=== PATIENT | male | born 1940 | race Caucasian/White ===

== ENCOUNTER → 2016-02-26 | Outpatient (CLI) | payer MEDICARE ==
[~2016-02-26] MED LIST: ALPR0.25 PO; AMIO200T PO; AMLO5TAB2 PO; ASPI-586 PO; ATOR20TA49 PO; CALC1TAB97 PO; CETI10TA20 PO; CLIN300C11 PO; CLOP75TA69 PO; COLC0.6C3 PO; DIPH25CA79 PO; ESCI5TAB PO; FURO-124 PO; HYDR-3820 PO; LACT1CAP8 PO; MEMA28CA PO; PEDI18TA2 PO; POTA40LI PO; SENN8.6C5 PO; SPIR25TA3 PO; TAMS0.4C98 PO
--- OUTSIDE RECORDS SUMMARY | 2016-02-26 11:13 | XMS REPORT | Continuity of Care Document ---
Author Author [facility] Organization [facility] Address Unknown Phone Unavailable Care Team Providers Care Lo[place] Name Role Phone Nohemi Quinonez PCP [phone] Source Comments Some departments are not documenting in the electronic medical record. If you do not see the information that you expected, contact Release of Information in the Health Information Management department at [phone] for further assistance in locating additional records.[facility] Active Allergies and Adverse Reactions Allergen Noted Date Severity Reactions Comments Cortizone-10 03/14/2015 Medium RASH Cortizone injections Iodine 03/14/2015 High RASH Latex 03/14/2015 Medium RASH Other 03/14/2015 Medium RASH Doppler gel Current Medications Prescription Sig. Disp. Refills Start End Date Status Date CALCIUM CARBONATE/VITAMIN Take 1 Tab by mouth Active D3 (CALCIUM + D PO) daily. atorvastatin (LIPITOR) 40 Take 1 Tab by mouth 90 Tab 3 03/16/19 Active mg tablet daily. 16 HYDROcodone-acetaminophen Take 0.5 Tabs by mouth Active (+) (LORTAB, NORCO) every 6 hours as needed 10-325 mg tablet for Pain aspirin EC 81 mg tablet Take 1 Tab by mouth 90 Tab 3 03/16/19 Active daily. 16 tamsulosin (FLOMAX) 0.4 Take 1 Cap by mouth daily 90 Cap 3 04/15/19 Active mg capsule after breakfast. 16 ALPRAZolam (XANAX) 0.25 Take 0.25 mg by mouth at Active mg tablet bedtime as needed. other medication 1 Dose. Oxygen 2 liters Active at night amLODIPine (NORVASC) 5 mg Take 1 Tab by mouth 90 Tab 3 09/12/19 Active tablet daily. 16 colchicine 0.6 mg tablet Take 1 Tab by mouth 90 Tab 3 09/12/19 Active daily. 16 ped multivit #43-iron Chew 1 Tab by mouth Active fumarate (FLINTSTONES daily. COMPLETE (IRON)) 18 mg iron chew spironolactone Take 1 Tab by mouth 90 Tab 3 11/11/19 Active (ALDACTONE) 25 mg tablet daily. Take with food. 16 cetirizine (ZYRTEC) 10 mg Take 10 mg by mouth every Active tablet morning. L.ACID/L.CASEI/B.BIF/B.LO Take by mouth daily. Active N/FOS (PROBIOTIC BLEND PO) furosemide (LASIX) 40 mg Take 1 Tab by mouth every 90 Tab 3 12/04/19 Active tablet morning. 16 escitalopram oxalate Take 10 mg by mouth Active (LEXAPRO) 10 mg tablet daily. escitalopram oxalate Take 5 mg by mouth at 02/03/20 Discontin (LEXAPRO) 5 mg tablet bedtime daily. 16 ued Active Problems Problem Noted Date S/p TAVR (transcatheter aortic valve replacement), bioprosthetic 02/06/2016 Pleural effusion due to congestive heart failure (HCC) 10/15/2015 Acute on chronic diastolic heart failure (HCC) 10/05/2015 Chronic anemia 10/05/2015 Chest pain 10/02/2015 Acute pericardial effusion 09/08/2015 Cardiac tamponade 09/08/2015 Overview: Pericardiocentesis 09/05/15 with 750ml serosanguinous fluid, along with R/LHC, shunt run & ICE to assess VSD - complicated with recurrent pericardial effusion and tamponade. Acute systolic heart failure (HCC) 09/04/2015 Left bundle branch block 04/15/2015 Urinary retention 04/14/2015 Paroxysmal atrial fibrillation ([facility]) 04/14/2015 Thrombocytopenia ([facility]) 04/14/2015 Chronic kidney disease (CKD), stage II (mild) 04/09/2015 Severe aortic stenosis 03/14/2015 CAD (coronary artery disease), [place] coronary artery Overview: 03/14/15: Drug-eluting stent PCI and atherectomy of the LAD and drug-eluting stent PCI of the CFX into the OM branch by Dr. Up. To return for staged PCI of the RCA 03/28/15: ANU to RCA x 2 - continued ASA lifelong & Plavix >/=1 year w/o interruption to prevent stent thrombosis and possible myocardial infarction. Essential hypertension PVD (peripheral vascular disease) ([facility]) S/P abdominal aortic aneurysm repair Carotid artery stenosis Monoclonal paraproteinemia AAA (abdominal aortic aneurysm), s/p repair Mitral regurgitation Diastolic dysfunction Deviated nasal septum Vocal cord paralysis GERD (gastroesophageal reflux disease) Chronic vascular insufficiency of intestine (HCC) Monoclonal gammopathy Hypercholesteremia Low back pain Chronic arthralgias of knees and hips Falls Myeloma (HCC) Left ventricular hypertrophy Resolved Problems Problem Noted Date Resolved Date Groin hematoma 09/08/2015 09/12/2015 Altered mental status 09/04/2015 09/12/2015 Chest pain 09/04/2015 09/12/2015 Cardiogenic shock (HCC) 04/15/2015 09/08/2015 Pericardial effusion 04/15/2015 09/08/2015 Aortic stenosis 04/09/2015 09/08/2015 Acute systolic heart failure (HCC) 04/08/2015 09/08/2015 Hypokalemia 03/16/2015 03/28/2015 Throat clearing 03/28/2015 Most Recent Encounters Date Type Specialty Providers Description 02/24/2016 Telephone Cardiology Arnold Biggs RN Altered mental status 02/12/2016 [facility] Tom Garcia MD Seroma Encounter 02/12/2016 Surgery Tom Garcia MD Canceled EXPLORATION WOUND, excision of left groin seroma with possible wound vac placement 02/10/2016 Telephone Cardiology Rosa Shearer RN Family Discussion About Patient 02/10/2016 Documentation Cardiothoracic Surgery Mulugeta Starks RN 02/04/2016 Pre-Admit Anesthesiology Tom Garcia MD Orders Only 02/04/2016 Prep for Case Cardiothoracic Surgery Frannie Lora APRN 02/03/2016 Office Visit Cardiothoracic Surgery Tom Garcia MD Seroma (Primary Dx) 02/03/2016 Office Visit Cardiology Scooter Up MD, [facility] Cardiac Eval - AAA,CAD-11:30 PV Duplex and 1:00 Echo 02/03/2016 [facility] Cardiology Mely Ochoa APRN-C Encounter 01/20/2016 Documentation Cardiology Rosa Shearer RN Lab Results - outside provider records 01/19/2016 Orders Only Cardiology Rosa Shearer RN Groin pain, left (Primary Dx); Encounter for surgical aftercare following surgery of circulatory system 12/16/2015 Documentation Cardiology Arnold Biggs RN Labs Only 12/16/2015 Telephone Cardiology Arnold Biggs, compliance mgr Results - Urine Culture 12/05/2015 Telephone Cardiology Rosa Sanchez RN Appointment Request 12/04/2015 Hospital Cardiology Scooter Up MD, FAC Encounter 12/04/2015 Office Visit Cardiology Desirae Wolf APRN-JAMEEL Cardiac Eval - 1 month HF Scooter Up MD, FACC follow up Social History Tobacco Use Types Packs/Day Years Used Date Never Smoker Smokeless Tobacco: Never Used Alcohol Use Drinks/Week oz/Week Comments Yes 7 Glasses of 4.2 Drinks one glass of red wine daily wine Last Filed Vital Signs Vital Sign Reading Time Taken Blood Pressure 174/68 02/03/2016 4:55 PM TRUCK WASHER Pulse 76 02/03/2016 4:55 PM TRUCK WASHER Temperature 36.3 C (97.3 F) 10/03/2015 12:18 PM CDT Respiratory Rate - - Height 1.829 m (6') 02/03/2016 4:55 PM TRUCK WASHER Weight 81.194 kg (179 lb) 02/03/2016 4:55 PM TRUCK WASHER Body Mass Index 24.27 02/03/2016 4:55 PM TRUCK WASHER Oxygen Saturation 98% 11/04/2015 1:32 PM CDT Plan of Care Date Type Specialty Providers Description 05/04/2016 Appointment Cardiology Scooter Up MD, [facility] [address] [facility] [address] [place] [address] [phone] (Fax) Health Maintenance Due Date Last Done Comments Physical (Comprehensive) 1947 Exam Pertussis Vaccine 1949 Tetanus Vaccine 1955 Shingles Vaccine 1998 Prevnar/Pneumovax (#1) 2003 Influenza Vaccine 10/09/2015 Results from Last 3 Months PV GROIN DUPLEX SCAN LT ONLY (02/03/2016 3:54 PM) Component Value Range Referring Provider Violet Quinonez LEFT GROIN HEALTH AND SAFETY TECHNICIAN SYS 1.38 m/s LEFT GROIN SFA SYS 1.10 m/s LEFT GROIN PFA SYS 1.15 m/s Narrative No definite evidence of AV fistula or pseudoaneurysm. A large echolucent space is noted, likely representing a fluid collection, differential includes seroma, measuring 8.4 cm by 6.4 cm. No flow is noted within this echolucent space. 2-D + DOPPLER ECHOCARDIOGRAM (02/03/2016 1:50 PM) Component Value Range BSA 2.05 m2 ECHO EF 65 % Referring Provider Violet Quinonez LVIDD 4.2 4.2-5.9 cm LVIDS 3.0 cm IVS 0.9 0.6-1.0 cm PW 0.9 0.6-1.0 cm FS 28.57 28-44 % EF 48.57 % LA size 5.1 3.0-4.0 cm LA volume 131.0 18-58 mL Left Atrium Index 63.90 10-32 Right Ventricular Basal 4.9 cm (2.4-4.2) Diameter Right Atrial Area 27.0 cm2 (<=18) Right Ventricular Mid 3.3 cm (2.0-3.5) Diameter Right Ventricular Long 7.8 cm (5.6-8.6) Diameter Sinus 4.0 2.1-3.5 cm LVOT diameter 2.4 cm LVOT area 4.52 cm2 LVOT peak key 1.3 m/s LVOT peak VTI 30.0 cm AV peak velocity 2.2 m/s Ao VTI 50.0 cm Aortic valve area= 2.71 cm2 , with a mean gradient of 9 mmHg and a peak gradient of 19 mmHg AV index ([place]) 0.59 AV regurgitation pressure 390 msec 1/2 time TDI e' 0.100 m/s LVOT stroke volume 135.60 cm3 Narrative LVEF=65%. Normal left ventricular size and systolic function. No regional wall motion abnormalities. Mildly dilated right ventricle with normal function. Significant bi-atrial enlargement. Normal functioning aortic valve bioprosthesis. Trace paravalvular regurgitation. No pericardial effusion. Aortic root-right ventricle fistula. Unable to estimate PA systolic pressure with this study. No significant interval changes when compared with the echocardiogram completed on 10/02/15. BASIC METABOLIC PANEL (01/18/2016)Only the most recent of 2 results within the time period is included. Component Value Range Sodium 139 Potassium 4.6 Chloride 100 CO2 27 Blood Urea Nitrogen 38 (H) Creatinine 1.54 (H) Glucose 92 Calcium 9.0 eGFR Non 44 (L) Specimen Blood COMPREHENSIVE METABOLIC PANEL (12/04/2015 3:46 PM) Component Value Range Sodium 133 (L) 137-147 MMOL/L Potassium 4.1 3.5-5.1 MMOL/L Chloride 97 (L) 98-110 MMOL/L Glucose 84 70-100 MG/DL Blood Urea Nitrogen 35 (H) 7-25 MG/DL Creatinine 1.36 (H) 0.4-1.24 MG/DL Calcium 9.1 8.5-10.6 MG/DL Total Protein 8.7 (H) 6.0-8.0 G/DL Total Bilirubin 0.5 0.3-1.2 MG/DL Albumin 3.4 (L) 3.5-5.0 G/DL Alk Phosphatase 56 25-110 U/L AST (SGOT) 19 7-40 U/L CO2 32 (H) 21-30 MMOL/L ALT (SGPT) 16 7-56 U/L Anion Gap 4 3-12 eGFR Non 51 (L)Comment: >60 mL/min The eGFR is not validated for use in drug dosing adjustments. Continue to use estimated creatinine clearance per dosing reference text. Please contact the Clinical Pharmacist for questions. eGFR >60Comment: >60 mL/min The eGFR is not validated for use in drug dosing adjustments. Continue to use estimated creatinine clearance per dosing reference text. Please contact the Clinical Pharmacist for questions. Specimen Blood CBC (12/04/2015 3:46 PM) Component Value Range White Blood Cells 3.8 (L) 4.5-11.0 K/UL RBC 3.46 (L) 4.4-5.5 M/UL Hemoglobin 10.0 (L) 13.5-16.5 GM/DL Hematocrit 30.4 (L) 40-50 % MCV 87.9 80-100 FL MCH 29.0 26-34 PG MCHC 33.0 32.0-36.0 G/DL RDW 17.7 (H) 11-15 % Platelet Count 132 (L) 150-400 K/UL MPV 7.9 7-11 FL Specimen Blood BNP (B-TYPE NATRIURETIC PEPTI) (12/04/2015 3:46 PM) Component Value Range B Type Natriuretic 534.0 (H) 0-100 PG/ML Peptide Specimen Blood
--- NOTE | 2016-02-26 11:44 | Diagnostic Imaging Report ---
INDICATION: Right hip pain, increased pain. Comparison study: KUB from 12/22-. FINDINGS: 2 views of the right hip are unchanged from the KUB. There is complete loss of the joint space with flattening of the femoral head and sclerosis of the acetabulum and femoral head. No fracture or dislocation is present. IMPRESSION: There are severe degenerative changes of the right hip. Dictated by: Dictated on workstation # [id number]
--- NOTE | 2016-02-26 11:45 | Diagnostic Imaging Report ---
PROCEDURE: CT head without contrast. TECHNIQUE: Multiple contiguous axial images were obtained through the brain without the use of intravenous contrast. INDICATION: Increased confusion. FINDINGS: There is no intracranial hemorrhage, edema, or mass effect. There are periventricular and deep white matter hypodensities compatible with chronic microvascular ischemic changes. No extra-axial fluid collection seen. No hydrocephalus. The calvarium, the orbits, and the paranasal sinuses appear grossly unremarkable. IMPRESSION: No intracranial hemorrhage. Dictated by: Dictated on workstation # [id number]
[2016-02-26 11:56] LABS: BASOPHILS % (AUTO) 0 % (0-10); EOSINOPHILS # (AUTO) 0.1 10^3/uL (0.0-0.3); EOSINOPHILS % (AUTO) 3 % (0-10); LYMPHOCYTES # (AUTO) 1.2 X 10^3 (1.0-4.0); LYMPHOCYTES % (AUTO) 33 % (12-44); MEAN CORPUSCULAR HEMOGLOBIN 31 PG (25-34); MEAN CORPUSCULAR HGB CONC 33 G/DL (32-36); MEAN CORPUSCULAR VOLUME 93 FL (80-99); MEAN PLATELET VOLUME 10.7 FL (7.4-10.4); MONOCYTES # (AUTO) 0.4 X 10^3 (0.0-1.0); MONOCYTES % (AUTO) 11 % (0-12); NEUTROPHILS % (AUTO) 53 % (42-75); PLATELET COUNT 109 10^3/uL (130-400); RED BLOOD COUNT 3.59 10^6/uL (4.35-5.85); RED CELL DISTRIBUTION WIDTH 14.8 % (10.0-14.5); WHITE BLOOD COUNT 3.7 10^3/uL (4.3-11.0)
[2016-02-26 12:16] LABS: ALBUMIN 3.4 G/DL (3.2-4.5); BILIRUBIN,TOTAL 0.5 MG/DL (0.1-1.0); CALCIUM 8.9 MG/DL (8.5-10.1); CREATININE SERUM 1.44 MG/DL (0.60-1.30); POTASSIUM 4.3 MMOL/L (3.6-5.0); TOTAL PROTEIN 8.1 G/DL (6.4-8.2)
[2016-02-26 12:31] LABS: THYROID STIMULATING HORMONE 1.94 UIU/ML (0.35-4.94)
== END ==
LOC: RAD 11:09
PROVIDERS: ATTEND Nurse Practitioner Family
DX: I10 Essential (primary) hypertension (principal); R41.0 Disorientation, unspecified; R31.29 Other microscopic hematuria; M16.11 Unilateral primary osteoarthritis, right hip
CPT/HCPCS: 36415; 70450; 73502; 80053; 82607; 84443; 85025

== ENCOUNTER → 2016-03-02 | Outpatient (CLI) | payer MEDICARE ==
--- OUTSIDE RECORDS SUMMARY | 2016-03-02 16:09 | XMS REPORT | Continuity of Care Document ---
Author Author [facility] Organization [facility] Address Unknown Phone Unavailable Care Team Providers Care Oil Program Compliance Specialist Name Role Phone Nohemi Quinonez PCP [phone] Source Comments Some departments are not documenting in the electronic medical record. If you do not see the information that you expected, contact Release of Information in the Health Information Management department at [phone] for further assistance in locating additional records.[facility] Active Allergies and Adverse Reactions Allergen Noted [...] 04/15/2015 Urinary retention 04/14/2015 Paroxysmal atrial fibrillation ([facility]) 04/14/2015 Thrombocytopenia ([facility]) 04/14/2015 Chronic kidney disease (CKD), stage II (mild) 04/09/2015 Severe aortic stenosis 03/14/2015 CAD (coronary artery disease), [place] coronary artery Overview: 03/14/15: Drug-eluting stent PCI [...] infarction. Essential hypertension PVD (peripheral vascular disease) ([facility]) S/P abdominal aortic aneurysm repair Carotid artery [...] Arnold Biggs RN Altered mental status 02/12/2016 [facility] Tom Garcia MD Seroma Encounter 02/12/2016 Surgery [...] 02/03/2016 Office Visit Cardiology Scooter Up MD, [facility] Cardiac Eval - AAA,CAD-11:30 PV Duplex and 1:00 Echo 02/03/2016 [facility] Cardiology Mely Ochoa APRN-C Encounter 01/20/2016 Documentation Cardiology Rosa Shearer RN Lab Results - outside provider records 01/19/2016 Orders Only Cardiology Rosa Shearer RN Groin pain, left (Primary Dx); Encounter for surgical aftercare following surgery of circulatory system 12/16/2015 Documentation Cardiology Arnold Biggs RN Labs Only 12/16/2015 Telephone Cardiology Arnold Biggs, magnetic observer Results - Urine Culture 12/05/2015 Telephone Cardiology [...] Taken Blood Pressure 174/68 02/03/2016 4:55 PM IMAGING NURSE Pulse 76 02/03/2016 4:55 PM IMAGING NURSE Temperature 36.3 C (97.3 F) 10/03/2015 12:18 PM CDT Respiratory Rate - - Height 1.829 m (6') 02/03/2016 4:55 PM IMAGING NURSE Weight 81.194 kg (179 lb) 02/03/2016 4:55 PM IMAGING NURSE Body Mass Index 24.27 02/03/2016 4:55 PM IMAGING NURSE Oxygen Saturation 98% 11/04/2015 1:32 PM CDT Plan of Care Date Type Specialty Providers Description 05/04/2016 Appointment Cardiology Scooter Up MD, [facility] [address] [facility] [address] [place] [address] [phone] (Fax) Health Maintenance Due Date Last Done Comments Physical (Comprehensive) 1947 Exam Pertussis Vaccine 1949 Tetanus Vaccine 1955 Shingles Vaccine 1998 Prevnar/Pneumovax (#1) 2003 Influenza Vaccine 10/09/2015 Results from Last 3 Months PV GROIN DUPLEX SCAN LT ONLY (02/03/2016 3:54 PM) Component Value Range Referring Provider Violet Quinonez LEFT GROIN AUTO BODY REPAIRER FIBERGLASS SYS 1.38 m/s LEFT GROIN SFA SYS [...] peak gradient of 19 mmHg AV index ([place]) 0.59 AV regurgitation pressure 390 msec 1/2 [...]
[2016-03-02 16:30] LABS: BASOPHILS % (AUTO) 0 % (0-10); EOSINOPHILS # (AUTO) 0.1 10^3/uL (0.0-0.3); EOSINOPHILS % (AUTO) 2 % (0-10); LYMPHOCYTES # (AUTO) 1.1 X 10^3 (1.0-4.0); LYMPHOCYTES % (AUTO) 28 % (12-44); MEAN CORPUSCULAR HEMOGLOBIN 31 PG (25-34); MEAN CORPUSCULAR HGB CONC 33 G/DL (32-36); MEAN CORPUSCULAR VOLUME 92 FL (80-99); MEAN PLATELET VOLUME 10.6 FL (7.4-10.4); MONOCYTES # (AUTO) 0.5 X 10^3 (0.0-1.0); MONOCYTES % (AUTO) 14 % (0-12); NEUTROPHILS # (AUTO) 2.1 X 10^3 (1.8-7.8); NEUTROPHILS % (AUTO) 56 % (42-75); PLATELET COUNT 98 10^3/uL (130-400); RED BLOOD COUNT 3.45 10^6/uL (4.35-5.85); RED CELL DISTRIBUTION WIDTH 14.6 % (10.0-14.5); RETICULOCYTE % 0.82 % (0.50-2.40); WHITE BLOOD COUNT 3.8 10^3/uL (4.3-11.0)
[2016-03-02 16:33] LABS: PATH WILL NEED TO REVIEW SMEAR PATH TO REVIEW
[2016-03-02 16:48] LABS: BAND NEUTROPHILS 1 %; BASOPHILS % (MANUAL) 0 %; EOSINOPHILS % (MANUAL) 1 %; LYMPHOCYTES % (MANUAL) 32 %; NEUTROPHILS % (MANUAL) 59 %
== END ==
LOC: LAB 16:04
PROVIDERS: ATTEND Nurse Practitioner Family
DX: D61.818 Other pancytopenia (principal)
CPT/HCPCS: 36415; 85007; 85027; 85045

== ENCOUNTER 2016-10-02 16:43 | Emergency (ER) | payer MEDICARE ==
[~2016-10-02] VITALS: Ht 182.9 cm; Wt 83.0 kg
[2016-10-02 17:00] LABS: BASOPHILS % (AUTO) 1 % (0-10); EOSINOPHILS # (AUTO) 0.1 10^3/uL (0.0-0.3); EOSINOPHILS % (AUTO) 3 % (0-10); LYMPHOCYTES # (AUTO) 1.3 X 10^3 (1.0-4.0); LYMPHOCYTES % (AUTO) 30 % (12-44); MEAN CORPUSCULAR HEMOGLOBIN 32 PG (25-34); MEAN CORPUSCULAR HGB CONC 33 G/DL (32-36); MEAN CORPUSCULAR VOLUME 96 FL (80-99); MEAN PLATELET VOLUME 11.6 FL (7.4-10.4); MONOCYTES # (AUTO) 0.6 X 10^3 (0.0-1.0); MONOCYTES % (AUTO) 14 % (0-12); NEUTROPHILS # (AUTO) 2.2 X 10^3 (1.8-7.8); NEUTROPHILS % (AUTO) 52 % (42-75); PLATELET COUNT 60 10^3/uL (130-400); RED BLOOD COUNT 2.97 10^6/uL (4.35-5.85); RED CELL DISTRIBUTION WIDTH 13.1 % (10.0-14.5); WHITE BLOOD COUNT 4.3 10^3/uL (4.3-11.0)
--- NOTE | 2016-10-02 17:04 | ED Neurological Problem ---
General Stated Complaint: AMS Source: patient, family, EMS Exam Limitations: physical impairment History of Present Illness Time seen by provider: 16:54 Initial Comments This 76-year-old male presents with a history from EMS of having bitten his tongue while asleep. The patient's family had called prehospital care. There was no sukhwinder history of seizure. There's been no similar episodes in the past. The patient has no specific complaints this time but appears to be postictal. The patient is oriented to person and place. At this time patient has no specific complaints. He denies headache, stiff neck , chest pain, palpitations, nausea or vomiting. Telephone consultation was today under taken with Dr. Guaman, deputy sheriff custody at concerning the patient. The patient's chronic renal failure, aortic valve replacement, congestive heart failure, and dementia were discussed. Allergies and Home Medications Allergies Coded Allergies: cortisone (Verified Allergy, Unknown, 05/02/15) iodine (Verified Allergy, Unknown, 05/02/15) latex (Verified Allergy, Unknown, 05/02/15) Uncoded Allergies: DOPPLER GEL (Allergy, Unknown, 05/02/15) Home Medications Alprazolam 0.25 Mg Tablet, 0.25 MG PO HS, #30 Prescribed by: MARCUS QUINTANA on 05/02/15912 Amlodipine Besylate 5 Mg Tablet, 5 MG PO DAILY, (Reported) Aspirin 81 Mg Tablet., 81 MG PO DAILY, #30 Prescribed by: MARCUS QUINTANA on 05/02/15912 Atorvastatin Calcium 20 Mg Tablet, 20 MG PO DAILY, #30 Prescribed by: MARCUS QUINTANA on 05/02/15912 Calcium Citrate/Vitamin D3 1 Each Tablet, 1 EACH PO DAILY, #30 Prescribed by: MARCUS QUINTANA on 05/02/15912 Cetirizine HCl 10 Mg Tablet, 10 MG PO DAILY, (Reported) Colchicine 0.6 Mg Capsule, 0.6 MG PO, (Reported) Escitalopram Oxalate 5 Mg Tablet, 5 MG PO HS for 30 Days Prescribed by: MARCUS QUINTANA on 05/02/15912 Furosemide 40 Mg Tablet, 40 MG PO DAILY, #30 Prescribed by: MARCUS QUINTANA on 05/02/15912 Hydrocodone/Acetaminophen 1 Each Tablet, 1 EACH PO TID, (Reported) Memantine HCl 28 Mg Cap.spr.24, 28 MG PO DAILY, (Reported) Pedi Mv No.79/Ferrous Fumarate 18 Mg Tab.chew, 18 MG PO DAILY, (Reported) Sennosides 8.6 Mg Capsule, 3 TAB PO DAILY, #30 Prescribed by: MARCUS QUINTANA on 05/02/15 0913 Spironolactone 25 Mg Tablet, 25 MG PO DAILY, (Reported) Tamsulosin HCl 0.4 Mg Cap, 0.4 MG PO DAILY, (Reported) Constitutional: No chills, No fever Eyes: Denies Blurred Vision, Denies Photophobia Ears, Nose, Mouth, Throat: denies ear pain, denies nose discharge, denies epistaxis, mouth pain (patient has bitten his tongue.) Respiratory: No cough, No short of breath Cardiovascular: No chest pain Gastrointestinal: No abdominal pain, No diarrhea, No nausea, No vomiting Genitourinary: No dysuria, No frequency Musculoskeletal: No back pain Skin: other (the patient appears pale.) Psychiatric/Neurological: No Symptoms Reported Endocrine: No Symptoms Reported Past Iuyadlo-Ewdrpe-Vhbsef Hx Patient Social History Recent Hopitalizations: No Immunizations Up To Date Date of Pneumonia Vaccine: Feb 07, 2015 Date of Influenza Vaccine: Nov 08, 2015 Surgeries Surgeries: Abdominal, Coronary Stent, Orthopedic, Valve Replacement, Vascular Surgery Cardiovascular Cardiac Disorders: Aneurysm, Coronary Artery Disease, High Cholesterol, Hypertension Neurological Neurological Disorders: Dementia Reproductive System Hx Reproductive Disorders: No Genitourinary Genitourinary Disorders: Prostate Problems Musculoskeletal Musculoskeletal Disorders: Chronic Back Pain Psychosocial Behavioral Health Disorders: Depression Reviewed Nursing Assessment Reviewed/Agree w Nursing PMH: Yes Physical Exam Vital Signs Vital Sign - Last 12Hours 10/02/16 16:57 Temp 98.2 Pulse 60 Resp 20 B/P (MAP) 147/61 Pulse Ox 99 O2 Delivery Room Air Capillary Refill : General Appearance: no apparent distress, cachetic HEENT: other (superficial lacerations this appears her tongue) Neck: supple Respiratory: decreased breath sounds Gastrointestinal: normal bowel sounds, non tender, soft Back: normal inspection, no CVA tenderness Extremities: normal range of motion, non-tender Neurologic/Psychiatric: no motor/sensory deficits Crainal Nerves: other (the patient's speech is hesitant and he appears to be postictal.) Motor/Sensory: no motor deficit, no sensory deficit Skin: normal color, warm/dry Progress/Results/Core Measures Results/Orders Lab Results Laboratory Tests Test 10/02/16 15:30 10/02/16 16:50 Range/Units Urine Color YELLOW Urine Clarity CLEAR Urine pH 5 5-9 Urine Specific Antonito 1.010 L 1.016-1.022 Urine Protein 3+ H NEGATIVE Urine Glucose (UA) NEGATIVE NEGATIVE Urine Ketones NEGATIVE NEGATIVE Urine Nitrite NEGATIVE NEGATIVE Urine Bilirubin NEGATIVE NEGATIVE Urine Urobilinogen NORMAL NORMAL MG/DL Urine Leukocyte Esterase NEGATIVE NEGATIVE Urine RBC (Auto) 5+ H NEGATIVE Urine RBC 10-25 H /HPF Urine WBC NONE /HPF Urine Squamous Epithelial Cells NONE /HPF Urine Crystals NONE /LPF Urine Bacteria NEGATIVE /HPF Urine Casts NONE /LPF Urine Mucus NEGATIVE /LPF Urine Culture Indicated NO White Blood Count 4.3 4.3-11.0 10^3/uL Red Blood Count 2.97 L 4.35-5.85 10^6/uL Hemoglobin 9.4 L 13.3-17.7 G/DL Hematocrit 29 L 40-54 % Mean Corpuscular Volume 96 80-99 FL Mean Corpuscular Hemoglobin 32 25-34 PG Mean Corpuscular Hemoglobin Concent 33 32-36 G/DL Red Cell Distribution Width 13.1 10.0-14.5 % Platelet Count 60 L 130-400 10^3/uL Mean Platelet Volume 11.6 H 7.4-10.4 FL Neutrophils (%) (Auto) 52 42-75 % Lymphocytes (%) (Auto) 30 12-44 % Monocytes (%) (Auto) 14 H 0-12 % Eosinophils (%) (Auto) 3 0-10 % Basophils (%) (Auto) 1 0-10 % Neutrophils # (Auto) 2.2 1.8-7.8 X 10^3 Lymphocytes # (Auto) 1.3 1.0-4.0 X 10^3 Monocytes # (Auto) 0.6 0.0-1.0 X 10^3 Eosinophils # (Auto) 0.1 0.0-0.3 10^3/uL Basophils # (Auto) 0.0 0.0-0.1 10^3/uL Prothrombin Time 17.5 H 12.2-14.7 SEC INR Comment 1.4 0.8-1.4 D-Dimer > 20.00 *H 0.00-0.49 UG/ML Sodium Level 137 135-145 MMOL/L Potassium Level 4.5 3.6-5.0 MMOL/L Chloride Level 100 98-107 MMOL/L Carbon Dioxide Level 25 21-32 MMOL/L Anion Gap 12 5-14 MMOL/L Blood Urea Nitrogen 74 H 7-18 MG/DL Creatinine 2.74 H 0.60-1.30 MG/DL Estimat Glomerular Filtration Rate 23 BUN/Creatinine Ratio 27 Glucose Level 90 70-105 MG/DL Calcium Level 8.8 8.5-10.1 MG/DL Total Bilirubin 0.4 0.1-1.0 MG/DL Aspartate Amino Transf (AST/SGOT) 23 5-34 U/L Alanine Aminotransferase (ALT/SGPT) 18 0-55 U/L Alkaline Phosphatase 55 40-136 U/L Troponin I < 0.30 <0.30 NG/ML B-Type Natriuretic Peptide 488.6 H <100.0 PG/ML Total Protein 8.2 6.4-8.2 GM/DL Albumin 3.4 3.2-4.5 GM/DL My Orders Orders - MIKY BATISTA MD Ct Head Wo (10/02/16 16:52) Cbc With Automated Diff (10/02/16 16:52) Protime With Inr (10/02/16 16:52) Comprehensive Metabolic Panel (10/02/16 16:52) Ua Culture If Indicated (10/02/16 16:52) Ekg Tracing (10/02/16 16:52) Troponin I (10/02/16 16:52) Chest 1 View, Ap/Pa Only (10/02/16 16:52) BNP (10/02/16 17:13) Fibrin Degradation Products (10/02/16 17:13) Vital Signs/I&O Vital Sign - Last 12Hours 10/02/16 16:57 Temp 98.2 Pulse 60 Resp 20 B/P (MAP) 147/61 Pulse Ox 99 O2 Delivery Room Air Intake and Output 10/03/16 00:00 Intake Total 1000 ml Balance 1000 ml Progress Note : Time: 18:01 Progress Note This patient's CT of the head demonstrated no evidence of acute intracranial hemorrhage. They patient's laboratory exam was essentially unchanged from his previous values at according to Dr. Guaman. There had been a slight deterioration in the patient's renal function (creatinine 2.74, BUNs 74). Patient's EKG demonstrated first degree heart block with a sinus rhythm and no acute current of injury. Chest x-ray failed to demonstrate evidence of acute pathology. Patient's d-dimer was markedly elevated. This was attributed to his poor renal function and apparent seizure. I placed a call to the neurology resident on-call at . The family's desire is that the patient have follow-up at in the neurology department rather than having to be transferred tonight to . I think this is a reasonable plan. I believe that it would be in the patient's best interest to be initiated on anticonvulsant therapy as I believe this was his second seizure within the last month. At this juncture I'm waiting for the neurology resident at to return my call for input on the patient's treatment plan. In the interim I'm going to initiate Keppra 500 mg by mouth. We'll adjust based on neurology recommendations and make certainly consider the patient's impaired renal function. Departure Impression Impression: Primary Impression: Seizures Disposition: 01 HOME, SELF-CARE Condition: Unchanged Departure-Patient Inst. Decision time for Depature: 18:10 Referrals: ROBBIN MARTINEZ MD (PCP/Family) Primary Care Physician Patient Instructions: Seizures, Adult (DC) Add. Discharge Instructions: Take Keppra 500 mg daily until following up with neurology at this week. Return to the emergency department if any problems or questions. MIKY BATISTA MD Oct 02, 2016 17:04
[2016-10-02 17:14] LABS: INR 1.4 (0.8-1.4); PROTHROMBIN TIME PATIENT 17.5 SEC (12.2-14.7)
[2016-10-02 17:24] LABS: ALANINE AMINOTRANSFERASE 18 U/L (0-55); ALBUMIN 3.4 GM/DL (3.2-4.5); ANION GAP 12 MMOL/L (5-14); ASPARTATE AMINO TRANSFERASE 23 U/L (5-34); BILIRUBIN,TOTAL 0.4 MG/DL (0.1-1.0); BLOOD UREA NITROGEN 74 MG/DL (7-18); BUN/CREATININE RATIO 27; CALCIUM 8.8 MG/DL (8.5-10.1); CARBON DIOXIDE 25 MMOL/L (21-32); CHLORIDE 100 MMOL/L (98-107); CREATININE SERUM 2.74 MG/DL (0.60-1.30); GFR ESTIMATED 23; GLUCOSE 90 MG/DL (70-105); POTASSIUM 4.5 MMOL/L (3.6-5.0); SODIUM 137 MMOL/L (135-145); TOTAL PROTEIN 8.2 GM/DL (6.4-8.2)
[2016-10-02 17:30] LABS: TROPONIN I < 0.30 NG/ML (<0.30)
[2016-10-02 17:37] LABS: BILIRUBIN,URINE NEGATIVE (NEGATIVE); KETONES,URINE NEGATIVE (NEGATIVE); LEUKOCYTE ESTERASE ,URINE NEGATIVE (NEGATIVE); NITRITE,URINE NEGATIVE (NEGATIVE); PH,URINE 5 (5-9); PROTEIN,URINE 3+ (NEGATIVE); UROBILINOGEN,URINE NORMAL (NORMAL)
--- NOTE | 2016-10-02 17:39 | Diagnostic Imaging Report ---
PROCEDURE: CT head without contrast. TECHNIQUE: Multiple contiguous axial images were obtained through the brain without the use of intravenous contrast. INDICATION: Altered mental status. COMPARISON: Study of 02/26/2016. FINDINGS: Ventricles and sulci are diffusely prominent. No hemorrhage is identified. There is no abnormal mass effect or shift of midline structures. There is atherosclerotic calcification within distal internal carotid and vertebral arteries. Calvarium is intact and the visualized paranasal sinuses are clear. IMPRESSION: Stable senescent findings in the brain without CT evidence of acute intracranial abnormality. Dictated by: Dictated on workstation # [id number]
--- NOTE | 2016-10-02 17:51 | Diagnostic Imaging Report ---
INDICATION: Altered mental status. EXAMINATION: Single PA view of the chest was obtained. COMPARISON: Study of 12/23/2015. FINDINGS: There is bilateral air trapping, similar to previous study. There may be slight right basilar atelectasis. No pneumothorax or consolidation is identified. There is no evidence of significant pleural fluid. IMPRESSION: Probable mild right basilar atelectasis without other evidence of acute abnormality or adverse change. Dictated by: Dictated on workstation # [id number]
[2016-10-02] MEDS: LEVETIRACETAM 500 MG (KEPPRA) TAB PO ONE (18:21)
[2016-10-02 18:28] VITALS: BP 147/61
== END 2016-10-02 18:28 | disposition home or self-care (01) ==
LOC: EDUNIT# 16:43 → ER 16:46
DX: R56.9 Unspecified convulsions (principal); F32.9 Major depressive disorder, single episode, unspecified; I25.10 Atherosclerotic heart disease of native coronary artery without angina pectoris; E78.00 Pure hypercholesterolemia, unspecified; I12.9 Hypertensive chronic kidney disease with stage 1 through stage 4 chronic kidney disease, or unspecified chronic kidney disease; N18.9 Chronic kidney disease, unspecified; F03.90 Unspecified dementia, unspecified severity, without behavioral disturbance, psychotic disturbance, mood disturbance, and anxiety; Z87.438 Personal history of other diseases of male genital organs; Z95.5 Presence of coronary angioplasty implant and graft; Z95.2 Presence of prosthetic heart valve; Z79.82 Long term (current) use of aspirin; Z86.79 Personal history of other diseases of the circulatory system
CPT/HCPCS: 36415; 70450; 71010; 80053; 81000; 83880; 84484; 85025; 85379; 85610

== ENCOUNTER → 2017-03-04 | Outpatient (CLI) | payer MEDICARE ==
[2017-03-04 11:34] LABS: BASOPHILS % (AUTO) 0 % (0-10); EOSINOPHILS % (AUTO) 0 % (0-10); HEMATOCRIT 28 % (40-54); HEMOGLOBIN 9.1 G/DL (13.3-17.7); LYMPHOCYTES # (AUTO) 0.6 X 10^3 (1.0-4.0); LYMPHOCYTES % (AUTO) 13 % (12-44); MEAN CORPUSCULAR HEMOGLOBIN 32 PG (25-34); MEAN CORPUSCULAR HGB CONC 33 G/DL (32-36); MEAN CORPUSCULAR VOLUME 96 FL (80-99); MEAN PLATELET VOLUME 10.2 FL (7.4-10.4); MONOCYTES # (AUTO) 0.2 X 10^3 (0.0-1.0); MONOCYTES % (AUTO) 4 % (0-12); NEUTROPHILS # (AUTO) 3.6 X 10^3 (1.8-7.8); NEUTROPHILS % (AUTO) 83 % (42-75); PLATELET COUNT 82 10^3/uL (130-400); RED BLOOD COUNT 2.88 10^6/uL (4.35-5.85); RED CELL DISTRIBUTION WIDTH 13.8 % (10.0-14.5); WHITE BLOOD COUNT 4.3 10^3/uL (4.3-11.0)
[2017-03-04 11:49] LABS: ALBUMIN 3.3 GM/DL (3.2-4.5); BILIRUBIN,TOTAL 0.4 MG/DL (0.1-1.0); CALCIUM 8.6 MG/DL (8.5-10.1); CREATININE SERUM 2.06 MG/DL (0.60-1.30); POTASSIUM 5.1 MMOL/L (3.6-5.0); TOTAL PROTEIN 8.2 GM/DL (6.4-8.2)
== END ==
LOC: CARD 11:13
PROVIDERS: ATTEND Internal Medicine Cardiovascular Disease
DX: I25.10 Atherosclerotic heart disease of native coronary artery without angina pectoris (principal); I35.0 Nonrheumatic aortic (valve) stenosis; I65.23 Occlusion and stenosis of bilateral carotid arteries; I10 Essential (primary) hypertension; E78.5 Hyperlipidemia, unspecified; E78.2 Mixed hyperlipidemia; I71.4 Abdominal aortic aneurysm, without rupture; I27.20 Pulmonary hypertension, unspecified
CPT/HCPCS: 36415; 80053; 80061; 85025; 93306

== ENCOUNTER 2017-05-24 16:51 | Emergency (ER) | payer MEDICARE ==
[~2017-05-24] VITALS: Ht 182.9 cm; Wt 88.0 kg
[~2017-05-24 16:51] MED LIST changes: -POTA40LI PO; +POTA40LI11 PO; -SPIR25TA3 PO; +SPIR25TA5 PO
--- OUTSIDE RECORDS SUMMARY | 2017-05-24 17:00 | XMS REPORT | Clinical Summary ---
Author Author [facility] Organization [facility] Address Unknown Phone Unavailable Care Team Providers Care Oracle Drm Consultant Name Role Phone Violet Quinonez MD PCP Salvador Vitale MD Unavailable Winnie Stewart MBBS Unavailable Unavailable Pradeep RivasBS Unavailable Desirae Wolf APRN-BEHAVIORAL SCIENCE CHAIR 7 Source Comments Some departments are not documenting in the electronic medical record. If you do not see the information that you expected, contact Release of Information in the Health Information Management department at [phone] for further assistance in locating additional records.[facility] Allergies Active Allergy Reactions Severity Noted Date Comments Hydrocortisone RASH Medium 03/14/2015 Cortizone injections Iodine RASH High 03/14/2015 Latex RASH Medium 03/14/2015 Unclassified Drug RASH Medium 03/14/2015 Doppler gel Current Medications Prescription Sig. Disp. Refills Start End Date Status Date CALCIUM CARBONATE/VITAMIN Take 1 Tab by mouth Active D3 (CALCIUM + D PO) daily. HYDROcodone-acetaminophen Take 0.5 Tabs by mouth Active (+) (LORTAB, NORCO) every 6 hours as needed 10-325 mg tablet for Pain aspirin EC 81 mg Take 1 Tab by mouth 90 Tab 3 03/16/19 Active tabletIndications: Aortic daily. 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 16 other medication 1 Dose. Oxygen 2 liters Active at night ped multivit #43-iron Chew 1 Tab by mouth Active fumarate (FLINTSTONES daily. COMPLETE (IRON)) 18 mg iron chew cetirizine (ZYRTEC) 10 mg Take 10 mg by mouth every Active tablet morning. escitalopram oxalate Take 10 mg by mouth Active (LEXAPRO) 10 mg tablet daily. atorvastatin (LIPITOR) 40 Take 1 Tab by mouth 90 Tab 3 03/11/19 Active mg tabletIndications: daily. 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 Calcium Carb mg/200 unit tablet 1250mg delivers 500mg elemental Ca polyethylene glycol 3350 Take 17 g by mouth daily. Active (GLYCOLAX; MIRALAX) 17 gram/dose powder MELATONIN PO Take 10 mg by mouth. Active mirtazapine (REMERON) 15 Take 15 mg by mouth at Active mg tablet bedtime daily. amLODIPine (NORVASC) 5 mg TAKE 1 TABLET BY MOUTH 90 Tab 3 08/18/19 Active tablet DAILY 17 spironolactone TAKE 1 TABLET BY MOUTH 90 tablet 3 11/09/19 Active (ALDACTONE) 25 mg tablet EVERY DAY WITH FOOD 17 LEVETIRACETAM (KEPPRA PO) Take 500 mg by mouth Active daily. furosemide (LASIX) 40 mg Take 1 tablet by mouth 180 tablet 3 11/12/19 Active tabletIndications: Edema twice daily. Indications: 17 Edema Active Problems Problem Noted Date Nonrheumatic aortic valve insufficiency 11/09/2016 Major neurocognitive disorder 07/01/2016 Overview: Most likely d/t AD, but possible lewy body or mixed-type remains in the ddx given his prominent cognitive fluctuations. Possible secondary contributions from mood disorders, medications, r/o thyroid disorder. 06/2016: MMSE 14, LM 1: 2, LM 2: 0 Alzheimer's disease 03/23/2016 Acute confusional state 03/18/2016 Seizure (HCC) 03/17/2016 S/p TAVR (transcatheter aortic valve replacement), bioprosthetic 02/06/2016 Pleural effusion due to congestive heart failure (HCC) 10/15/2015 Acute on chronic diastolic congestive heart failure ([facility]) 10/05/2015 Chronic anemia 10/05/2015 Chest pain 10/02/2015 Acute pericardial effusion 09/08/2015 Cardiac tamponade 09/08/2015 Overview: Pericardiocentesis 09/05/15 with 750ml serosanguinous fluid, along with R/LHC, shunt run & ICE to assess VSD - complicated with recurrent pericardial effusion and tamponade. Acute systolic heart failure ([facility]) 09/04/2015 Left to right cardiac shunt ([facility]) 05/02/2015 Overview: Aortic root to right ventricular shunt. 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 Up. To return for staged PCI of the RCA 03/28/15: ANU to RCA x 2 - continued ASA lifelong & Plavix >/=1 year w/o interruption to prevent stent thrombosis and possible myocardial infarction. Essential hypertension PVD (peripheral vascular disease) ([facility]) S/P abdominal aortic aneurysm repair Carotid artery stenosis Monoclonal paraproteinemia AAA (abdominal aortic aneurysm), s/p repair Mitral regurgitation Diastolic dysfunction Deviated nasal septum Vocal cord paralysis GERD (gastroesophageal reflux disease) Chronic vascular insufficiency of intestine ([facility]) Monoclonal gammopathy Hypercholesteremia Low back pain Chronic arthralgias of knees and hips Falls Myeloma ([facility]) Left ventricular hypertrophy Resolved Problems Problem Noted Date Resolved Date Groin hematoma 09/08/2015 09/12/2015 Altered mental status 09/04/2015 09/12/2015 Chest pain 09/04/2015 09/12/2015 Cardiogenic shock ([facility]) 04/15/2015 09/08/2015 Pericardial effusion 04/15/2015 09/08/2015 Aortic stenosis 04/09/2015 09/08/2015 Acute systolic heart failure ([facility]) 04/08/2015 09/08/2015 Hypokalemia 03/16/2015 03/28/2015 Throat clearing 03/28/2015 Encounters Date Type Specialty Care Team Description 02/25/2017 Documentation Cardiology Lizeth Allison LPN Medication Refill from Last 3 Months Family History Medical History Relation Name Comments Heart Attack Brother Heart Surgery Brother Heart Surgery Brother Cancer Sister Cancer Sister Irritable Bowel Disease Sister Chrons Disease Relation Name Status Comments Brother Brother Brother Father "old age" (Age 80s) Mother "old age" (Age 80s) Sister Sister Sister Social History Tobacco Use Types Packs/Day Years Used Date Never Smoker Smokeless Tobacco: Never Used Alcohol Use Drinks/Week oz/Week Comments Yes 7 Glasses of 4.2 Drinks one glass of red wine daily wine Sex Assigned at Date Recorded Not on file Last Filed Vital Signs Vital Sign Reading Time Taken Blood Pressure 136/60 11/09/2016 1:35 PM CDT Pulse 55 11/09/2016 1:35 PM CDT Temperature 36.8 C (98.3 F) 03/18/2016 9:28 AM HYPERION ESSBASE DEVELOPER Respiratory Rate - - Oxygen Saturation 99% 11/09/2016 1:35 PM CDT Inhaled Oxygen - - Concentration Weight 85.8 kg (189 lb 1.6 oz) 11/09/2016 1:35 PM CDT Height 182.9 cm (6') 11/09/2016 1:35 PM CDT Body Mass Index 25.65 11/09/2016 1:35 PM CDT Plan of Treatment Health Maintenance Due Date Last Done Comments PHYSICAL (COMPREHENSIVE) 1945 EXAM PERTUSSIS VACCINE 1949 TETANUS VACCINE 1955 SHINGLES VACCINE 1998 PREVNAR/PNEUMOVAX (#1) 2003 INFLUENZA VACCINE 11/07/2017 Implants Implanted Type Area Wrapper Dipper Device Expiration Model / Identifier Date Serial / Lot Stent 29mm Shaji 3 Commander System N/A: Heart UNIDENTIFIED 01/24/2016 [id number] Implanted: Qty: 1 on 04/09/2015 by RABIA / Salvador Vitale MD [id number] / [id number] Results Not on filefrom Last 3 Months
--- OUTSIDE RECORDS SUMMARY | 2017-05-24 17:00 | XMS REPORT | Continuity of Care Document ---
Author Author [facility] Organization [facility] Address Unknown Phone Unavailable Care Team Providers Care Individual Small Group Instructor Name Role Phone [employer] Unavailable Unavailable Problems Medications Allergies, Adverse Reactions, Alerts Immunizations Results Vital Signs Encounters Location Location Details Encounter Type Encounter Number Reason For Visit Attending Provider ADM Date DC Date Status Source OUTPATIENT [id number] KIKA YIP 05/08/2015 Active [facility] OUTPATIENT [id number] FERNANDA BENNETT 11/04/2015 Active [facility] OUTPATIENT [id number] KIKA YIP 12/04/2015 Active [facility] OUTPATIENT [id number] LORETA MARIA 02/03/20162015 Active [facility] EMERGENCY [id number] TONYA WALTON 03/17/2016 03/17/2016 Active [facility] OUTPATIENT [id number] KIKA YIP 05/04/2016 Active [facility] SPECIMEN [id number] TOMAS WALTON 07/01/2016 07/01/2016 Active [facility] OUTPATIENT [id number] EDNA CHRISTINE 11/03/20162016 Active [facility] OUTPATIENT [id number] KIKA YIP 11/09/2016 11/09/2016 Active [facility] O Active [facility] Procedures Plan of Care Social History Assessment and Plan Family History Advance Directives Functional Status
--- OUTSIDE RECORDS SUMMARY | 2017-05-24 17:00 | XMS REPORT | Encounter Summary ---
Author Author [facility] Organization [facility] Address Unknown Phone Unavailable Care Team Providers Care Freight Forwarder Name Role Phone Violet Quinonez MD PCP Salvador Vitale MD Unavailable Winnie Stewart MBBS Unavailable Unavailable Pradeep RivasBS Unavailable Desirae Wolf APRN-RUG CUTTER HELPER 7 Reason for Visit * Reason Comments Medication Refill Encounter Details Date Type Department Care Team Description 02/25/2017 Documentation [facility] Lizeth Allison LPN Medication Refill [address] [facility] [address] [place], [place] [id number] Social History Tobacco Use Types Packs/Day Years Used Date Never Smoker Smokeless Tobacco: Never Used Alcohol Use Drinks/Week oz/Week Comments Yes 7 Glasses of 4.2 Drinks one glass of red wine daily wine Sex Assigned at Date Recorded Not on file as of this encounter Functional Status Functional Status Response Date of Assessment Does the patient have a hearing impairment: No 11/03/2016 Does the patient have a visual impairment: No 11/03/2016 Does the patient have impaired ambulation: Yes 11/03/2016 Does the patient have an activity of daily living No 11/03/2016 (ADL) impairment: Does the patient have an instrumental activity of No 11/03/2016 daily living (IADL) impairment: Cognitive Status Response Date of Assessment Does the patient have a cognitive impairment: No 11/03/2016 as of this encounter Progress Notes * Lizeth Allison LPN - 02/25/2017 9:43 AM MACHINE SORTER Request for refill received for Atorvastatin. This med was ordered by MACHINIST BENCH at hospital discharge. No recent lipid profile. Reviewed with Candace Infante RN. Call placed to pharmacy and spoke to Gianni requesting they forward refill request to PCP. Request for refill denied as PCP will follow up. in this encounter Plan of Treatment Not on fileas of this encounter Visit Diagnoses Not on filein this encounter
--- OUTSIDE RECORDS SUMMARY | 2017-05-24 17:03 | XMS REPORT | CCD ---
Author Author [facility] Address [address] [place] [address] Phone Care Team Providers Care Accounting System Expert Name Role Phone PP Unavailable CCM Unavailable Summary Purpose Interface Exchange Insurance Providers Payer name Policy type / Coverage type Covered republican ID Effective Begin Date Effective End Date WPS Medicare Part B Medicare Part B [id number] Unknown Unknown [facility] Medicare Part B [id number] Unknown Unknown Family history Son Diagnosis Age At Onset Depression Unknown Sister Diagnosis Age At Onset Cancer Unknown Brother Diagnosis Age At Onset Coronary Artery Disease Unknown Hypertension Unknown Father Diagnosis Age At Onset Alcoholism Unknown Social History Social History Element Codes Description Effective Dates Marital status Unknown 05/17/2014 Employment Unknown Retired 05/17/[address]: 869630080 Never smoker 05/17/[address]: 641018312 Never drinks alcohol 05/17/2014 Allergies, Adverse Reactions, Alerts Allergies, Adverse Reactions, Alerts data not found Past Medical History Illness Codes Condition Status Onset Date Resolved Date Epilepsy, unspecified, not intractable, without status epilepticus ICD-9: 345.90 ICD-10: G40.909 Active 10/08/2016 Unknown Essential (primary) hypertension ICD-9: 401.9 ICD-10: I10 Active 02/25/2016 Unknown 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 ICD-10: D50.0 Active 06/19/2015 Unknown Pain in right hip ICD- 9: 719.45 ICD-10: M25.551 Active 02/25/2016 Unknown Idiopathic gout, left elbow ICD-9: 274.00 ICD-10: M10.022 Active 07/16/2016 Unknown Pain in left elbow ICD -9: 719.42 ICD-10: M25.522 Active 07/16/2016 Unknown Disorientation, unspecified ICD-9: 293.0 ICD-10: R41.0 Active 02/25/2016 Unknown Hypoxemia ICD-9: 799.02 ICD-10: R09.02 Active 02/26/2016 Unknown Mastodynia ICD-9: 611.71 ICD-10: N64.4 Active 02/25/2016 Unknown Other microscopic hematuria ICD-9: 599.72 ICD-10: R31.29 Active 02/25/2016 Unknown Encounter for immunization ICD-9: V04.81 ICD-10: Z23 Active 11/12/2015 Unknown Localized edema ICD-9 : 782.3 ICD-10: R60.0 Active 11/12/2015 Unknown Mild cognitive impairment, so stated ICD-9: 331.83 ICD-10: G31.84 Active 11/12/2015 Unknown Contusion of abdominal wall, sequela ICD-9: 906.3 ICD-10: S30.1XXS Active 08/21/2015 Unknown Other intra-abdominal and pelvic swelling, mass and lump ICD-9: 789.30 ICD-10: R19.09 Active 08/21/2015 Unknown Urinary tract infection, site not specified ICD-9: 599.0 ICD-10: N39.0 Active 08/21/2015 Unknown Anemia, unspecified ICD-9: 285.9 ICD-10: D64.9 Active 07/21/2015 Unknown Dysuria ICD-9: 788.1 ICD-10: R30.0 Active 07/21/2015 Unknown Corns and callosities ICD-9: 700 ICD-10: L84 Active 06/05/2014 Unknown Pressure ulcer of left buttock, stage 2 ICD-9: 707.05 ICD-10: L89.322 Active 06/19/2015 Unknown Nonrheumatic aortic (valve) stenosis ICD-9: 424.1 ICD-10: I35.0 Active 04/21/2015 Unknown Paroxysmal atrial fibrillation ICD-9: 427.31 ICD-10: I48.0 Active 05/17/2014 Unknown Shortness of breath ICD-9: 786.05 ICD-10: R06.02 Active 04/21/2015 Unknown Bilateral primary osteoarthritis of knee ICD-9: 715.96 ICD-10: M17.0 Active 12/11/2014 Unknown 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 ICD-9: 707.8 ICD-10: L98.421 Active 10/16/2014 Unknown Encounter for immunization ICD-9: V03.82 ICD-10: Z23 Active 11/13/2014 Unknown Callous ulcer ICD-9: 707.8 Active 10/16/2014 Unknown Callus of foot ICD-9: 700 Active 06/05/2014 Unknown Atrial fibrillation Unknown Active 05/17/2014 Unknown Cardiomyopathy Unknown Active 05/17/2014 Unknown carotid artery disease Unknown Active 05/17/2014 Unknown Heart murmur Unknown Active 05/17/2014 Unknown Hypertension Unknown Active 05/17/2014 Unknown Osteoarthritis Unknown Active 05/17/2014 Unknown Peripheral vascular disease Unknown Active 05/17/2014 Unknown Valvular heart disease Unknown Active 05/17/2014 Unknown A-fib ICD-9: 427.31 Active 05/17/2014 Unknown ALLERGIC RHINITIS ICD- 9: 477.9 Active 05/17/2014 Unknown ESSENTIAL HYPERTENSION ICD-9: 401.9 Active 05/17/2014 Unknown Iron deficiency anemia ICD-9: 280.9 Active 05/17/2014 Unknown Osteoarthritis ICD-9: 715.90 Active 05/17/2014 Unknown Right hip pain ICD-9: 719.45 Active 05/17/2014 Unknown Problems Condition Codes Effective Dates Condition Status Epilepsy, unspecified, not intractable, without status epilepticus ICD-9: 345.90 ICD-10: G40.909 10/08/2016 Active Essential (primary) hypertension ICD-9: 401.9 ICD-10: I10 02/25/2016 Active 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 ICD-10: D50.0 06/19/2015 Active Pain in right hip ICD- 9: 719.45 ICD-10: M25.551 02/25/2016 Active Idiopathic gout, left elbow ICD-9: 274.00 ICD-10: M10.022 07/16/2016 Active Pain in left elbow ICD -9: 719.42 ICD-10: M25.522 07/16/2016 Active Disorientation, unspecified ICD-9: 293.0 ICD-10: R41.0 02/25/2016 Active Hypoxemia ICD-9: 799.02 ICD-10: R09.02 02/26/2016 Active Mastodynia ICD-9: 611.71 ICD-10: N64.4 02/25/2016 Active Other microscopic hematuria ICD-9: 599.72 ICD-10: R31.29 02/25/2016 Active Encounter for immunization ICD-9: V04.81 ICD-10: Z23 11/12/2015 Active Localized edema ICD-9 : 782.3 ICD-10: R60.0 11/12/2015 Active Mild cognitive impairment, so stated ICD-9: 331.83 ICD-10: G31.84 11/12/2015 Active Contusion of abdominal wall, sequela ICD-9: 906.3 ICD-10: S30.1XXS 08/21/2015 Active Other intra-abdominal and pelvic swelling, mass and lump ICD-9: 789.30 ICD-10: R19.09 08/21/2015 Active Urinary tract infection, site not specified ICD-9: 599.0 ICD-10: N39.0 08/21/2015 Active Anemia, unspecified ICD-9: 285.9 ICD-10: D64.9 07/21/2015 Active Dysuria ICD-9: 788.1 ICD-10: R30.0 07/21/2015 Active Corns and callosities ICD-9: 700 ICD-10: L84 06/05/2014 Active Pressure ulcer of left buttock, stage 2 ICD-9: 707.05 ICD-10: L89.322 06/19/2015 Active Nonrheumatic aortic (valve) stenosis ICD-9: 424.1 ICD-10: I35.0 04/21/2015 Active Paroxysmal atrial fibrillation ICD-9: 427.31 ICD-10: I48.0 05/17/2014 Active Shortness of breath ICD-9: 786.05 ICD-10: R06.02 04/21/2015 Active Bilateral primary osteoarthritis of knee ICD-9: 715.96 ICD-10: M17.0 12/11/2014 Active 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 ICD-9: 707.8 ICD-10: L98.421 10/16/2014 Active Encounter for immunization ICD-9: V03.82 ICD-10: Z23 11/13/2014 Active Callous ulcer ICD-9: 707.8 10/16/2014 Active Callus of foot ICD-9: 700 06/05/2014 Active Atrial fibrillation Unknown 05/17/2014 Active Cardiomyopathy Unknown 05/17/2014 Active carotid artery disease Unknown 05/17/2014 Active Heart murmur Unknown 05/17/2014 Active Hypertension Unknown 05/17/2014 Active Osteoarthritis Unknown 05/17/2014 Active Peripheral vascular disease Unknown 05/17/2014 Active Valvular heart disease Unknown 05/17/2014 Active A-fib ICD-9: 427.31 05/17/2014 Active ALLERGIC RHINITIS ICD- 9: 477.9 05/17/2014 Active ESSENTIAL HYPERTENSION ICD-9: 401.9 05/17/2014 Active Iron deficiency anemia ICD-9: 280.9 05/17/2014 Active Osteoarthritis ICD-9: 715.90 05/17/2014 Active Right hip pain ICD-9: 719.45 05/17/2014 Active Medications Medication Codes Instructions Start Date Stop Date Status Fill Instructions Lipitor 40 mg tablet RxNorm: 261456 TAKE 1 TAB BY MOUTH DAILY. 02/25/2017 No Stop Date Active Remeron 15 mg tablet RxNorm: 636491 1/2 TABLET(S) PO QHS FOR 1 WEEK THEN DOSE MAY BE INCREASED TO 1 TAB AFTER THAT IF NEEDED 01/28/2017 01/22/2018 Active cetirizine 10 mg tablet RxNorm: 6912665 1 TABLET(S) PO DAILY 04/21/2017 Active hydrocodone 10 mg-acetaminophen 325 mg tablet RxNorm: 207311 1 Tablet(s) PO qid prn 12/23/2016 01/21/2017 Inactive Lexapro 10 mg tablet RxNorm: 072099 1 TABLET(S) PO QHS 1 TABLET(S) PO QHS 12/09/2016 11/03/2017 Active Keppra 500 mg tablet RxNorm: 099029 TAKE 1 TABLET BY MOUTH EVERY DAY 10/28/2016 2017 Inactive Patient requests 90 days supply hydrocodone 10 mg-acetaminophen 325 mg tablet RxNorm: 532890 1 Tablet(s) PO qid prn 10/08/2016 11/06/2016 Inactive colchicine 0.6 mg tablet RxNorm: 640853 1 Tablet(s) PO daily 03/26/2017 Active colchicine 0.6 mg tablet RxNorm: 961798 1 Tablet(s) PO daily 09/27/2016 Inactive cetirizine 10 mg tablet RxNorm: 2175862 1 TABLET(S) PO DAILY 12/22/2016 Inactive Remeron 15 mg tablet RxNorm: 723286 1/2 TABLET(S) PO QHS FOR 1 WEEK THEN DOSE MAY BE INCREASED TO 1 TAB AFTER THAT IF NEEDED 08/23/2016 01/27/2017 Inactive hydrocodone 10 mg-acetaminophen 325 mg tablet RxNorm: 290681 1 Tablet(s) PO qid prn 07/28/2016 08/26/2016 Inactive Remeron 15 mg tablet RxNorm: 181379 1/2 Tablet(s) PO QHS for 1 week then dose may be increased to 1 tab after that if needed 07/02/2016 07/01/2016 Inactive Remeron 15 mg tablet RxNorm: 772057 1/2 Tablet(s) PO QHS for 1 week then dose may be increased to 1 tab after that if needed 07/02/2016 08/22/2016 Inactive Flomax 0.4 mg capsule RxNorm: 165046 TAKE 1 CAPSULE BY MOUTH EVERY DAY AFTER BREAKFAST 06/28/2016 03/24/2017 Active hydrocodone 10 mg-acetaminophen 325 mg tablet RxNorm: 638277 1 Tablet(s) PO qid prn 05/27/2016 06/25/2016 Inactive gentamicin 0.3 % eye drops RxNorm: 995133 2 Drop(s) OPH TID 07/201605/19/2016 Inactive gentamicin 0.3 % eye drops RxNorm: 479377 2 Drop(s) OPH TID 07/201605/12/2016 Inactive cetirizine 10 mg tablet RxNorm: 5931793 1 TABLET(S) PO DAILY 08/29/2016 Inactive Flomax 0.4 mg capsule RxNorm: 264470 TAKE 1 CAPSULE BY MOUTH EVERY DAY AFTER BREAKFAST 04/01/2016 06/27/2016 Inactive hydrocodone 10 mg-acetaminophen 325 mg tablet RxNorm: 838823 1 Tablet(s) PO qid prn 03/22/2016 04/20/2016 Inactive Xanax 0.25 mg tablet RxNorm: 460795 1 Tablet(s) PO BID and 1 tab po q 6 hours as needed 03/15/2016 05/19/2016 Inactive trimethoprim 100 mg tablet RxNorm: 185454 1 Tablet(s) PO daily 02/26/2016 07/15/2016 Inactive Levaquin 500 mg tablet RxNorm: 751849 1/2 Tablet(s) PO daily 07/15/2016 Inactive 1 tab today then 1/2 tab daily x 6 days, disregard order for 1 tab daily x 7 days Levaquin 500 mg tablet RxNorm: 008785 1 Tablet(s) PO daily 03/03/2016 Inactive Depakote 250 mg tablet,delayed release RxNorm: 1504189 1 Tablet(s) PO BID 02/23/2016 03/18/2016 Inactive Depakote 250 mg tablet,delayed release RxNorm: 2983341 1 Tablet(s) PO BID 02/23/2016 02/22/2016 Inactive cetirizine 10 mg tablet RxNorm: 7363681 1 TABLET(S) PO DAILY 05/05/2016 Inactive hydrocodone 10 mg-acetaminophen 325 mg tablet RxNorm: 959731 1/2 Tablet(s) PO qid prn 01/12/2016 01/11/2016 Inactive hydrocodone 10 mg-acetaminophen 325 mg tablet RxNorm: 424243 1 Tablet(s) PO qid prn 01/12/2016 03/21/2016 Inactive Levaquin 500 mg tablet RxNorm: 284862 1 Tablet(s) PO daily 09/201512/15/2015 Inactive Levaquin 500 mg tablet RxNorm: 588347 1 Tablet(s) PO daily 09/201512/22/2015 Inactive Namenda XR 28 mg capsule sprinkle,extended release RxNorm: 132087 1 CAPSULE(S) PO DAILY 12/15/2015 03/13/2016 Inactive hydrocodone 10 mg-acetaminophen 325 mg tablet RxNorm: 327710 1/2 Tablet(s) PO qid prn 12/12/2015 01/11/2016 Inactive Lexapro 10 mg tablet RxNorm: 689885 1 Tablet(s) PO QHS 1 TABLET(S) PO QHS 12/12/2015 12/05/2016 Inactive Keflex 500 mg capsule RxNorm: 857491 1 Capsule(s) PO BID 201512/15/2015 Inactive cetirizine 10 mg tablet RxNorm: 3475226 1 TABLET(S) PO DAILY 01/05/2016 Inactive cetirizine 10 mg tablet RxNorm: 5713882 1 Tablet(s) PO daily 12/06/2015 Inactive Namenda XR 28 mg capsule sprinkle,extended release RxNorm: 438355 1 Capsule(s) PO daily 11/13/2015 12/12/2015 Inactive Xanax 0.25 mg tablet RxNorm: 301796 1 Tablet(s) PO BID and 1 tab po q 6 hours as needed 09/19/2015 12/13/2015 Inactive Keflex 500 mg capsule RxNorm: 988205 1 Capsule(s) PO BID 201508/28/2015 Inactive Lexapro 5 mg tablet RxNorm: 858174 1 TABLET(S) PO QHS 201512/11/2015 Inactive Bactrim DS 800 mg-160 mg tablet RxNorm: 613152 1 Tablet(s) PO BID 07/22/2015 07/28/2015 Inactive Lasix 40 mg tablet RxNorm: 244629 2.5 TABLET(S) PO DAILY 11/12/2015 Inactive 1 1/2 in the morning and 1 at 3 PMPatient requests 90 days supply Xanax 0.25 mg tablet RxNorm: 617875 1 Tablet(s) PO BID and 1 tab po q 6 hours as needed 07/08/2015 09/18/2015 Inactive Lasix 40 mg tablet RxNorm: 711984 2.5 TABLET(S) PO DAILY 07/17/2015 Inactive 1 1/2 in the morning and 1 at 3 PM potassium chloride ER 20 mEq tablet,extended release RxNorm: 477172 2 Tablet(s) PO BID 07/03/2015 07/15/2016 Inactive Lasix 40 mg tablet RxNorm: 102765 2.5 Tablet(s) PO daily 07/01/2015 Inactive 1 1/2 in the morning and 1 at 3 PM Lexapro 5 mg tablet RxNorm: 005371 1 Tablet(s) PO QHS 201508/10/2015 Inactive Lexapro 5 mg tablet RxNorm: 788348 1 Tablet(s) PO QHS 201504/22/2015 Inactive Xanax 0.25 mg tablet RxNorm: 773805 1 Tablet(s) PO BID and 1 tab po q 6 hours 04/23/2015 09/18/2015 Inactive Lasix 40 mg tablet RxNorm: 1 Tablet(s) PO daily 201506/03/2015 Inactive TAKE TWICE DAILY X 2 DAYS THEN DAILY THEREAFTER Lasix 40 mg tablet RxNorm: 1 Tablet(s) PO daily 201504/21/2015 Inactive TAKE TWICE DAILY X 2 DAYS THEN DAILY THEREAFTER Norvasc 5 mg tablet RxNorm: 397282 1 Tablet(s) PO daily 201404/21/2015 Inactive nystatin 100,000 unit/mL oral suspension RxNorm: 366855 5 Milliliter(s) PO QID 10/17/2014 10/26/2014 Inactive hydrocodone 10 mg-acetaminophen 325 mg tablet RxNorm: 720666 1/2 Tablet(s) PO qid prn 09/17/2014 12/11/2015 Inactive Flonase Allergy Relief 50 mcg/actuation nasal spray, suspension RxNorm: 2 [place] NASAL daily 06/06/2014 07/05/2014 Inactive triamterene 75 mg-hydrochlorothiazide 50 mg tablet RxNorm: 509199 1/2 Tablet(s) PO daily 05/17/2014 06/15/2014 Inactive Lasix 20 mg tablet RxNorm: Tablet(s) PO alternate 40mg and 20mg every other day - per [facility] No Start Date Active senna 8.6 mg tablet RxNorm: 283175 2 Tablet(s) PO BID No Start Date Active Citracal + D3 (calcium phosphate) oral RxNorm: 1895 oral No Start Date Active Lasix 40 mg tablet RxNorm: 1 Tablet(s) PO BID No Start Date Active Multiple Vitamins with Iron chewable tablet RxNorm: 1 Tablet(s) PO daily flinstone vitamin No Start Date Active melatonin 10 mg tablet RxNorm: 9722026 1 Tablet(s) PO daily No Start Date Active aspirin 81 mg capsule,delayed release RxNorm: 138054 1 Capsule(s) PO daily No Start Date Active spironolactone 25 mg tablet RxNorm: 839769 1 Tablet(s) PO daily No Start Date Active red yeast rice 600 mg tablet RxNorm: 265116 1 Tablet(s) PO daily No Start Date 04/21/2015 Inactive Plavix 75 mg tablet RxNorm: 479408 1 Tablet(s) PO daily No Start Date 07/15/2016 Inactive Flomax 0.4 mg capsule RxNorm: 050482 1 Capsule(s) PO daily No Start Date 03/31/2016 Inactive Prostate Health oral RxNorm: 64176 oral No Start Date 02/25/2016 Inactive Niferex-150 (with Sumalate) oral RxNorm: 49247 oral No Start Date 04/21/2015 Inactive Benadryl 25 mg capsule RxNorm: 3210095 1 Capsule(s) PO QHS No Start Date 02/25/2016 Inactive Advanced Eye Health 500 mg-5 mg-1 mg capsule RxNorm: 1 Capsule(s) PO daily No Start Date 04/21/2015 Inactive warfarin oral RxNorm: 08746 oral No Start Date 06/06/2014 Inactive Lipitor 40 mg tablet RxNorm: 456835 1 Tablet(s) PO daily No Start Date 02/24/2017 Inactive Vitamin D2 1,000 unit capsule RxNorm: 844942 1 Capsule(s) PO BID No Start Date 04/21/2015 Inactive Norvasc 5 mg tablet RxNorm: 715507 1 Tablet(s) PO daily No Start Date 01/28/2015 Inactive potassium chloride ER 20 mEq tablet,extended release RxNorm: 737845 2 Tablet(s) PO BID No Start Date 07/02/2015 Inactive Keppra 500 mg tablet RxNorm: 995505 1 Tablet(s) PO daily No Start Date 10/27/2016 Inactive Iron (ferrous sulfate) 325 mg (65 mg iron) tablet RxNorm: 036869 Tablet(s) PO No Start Date 04/21/2015 Inactive hydrocodone 10 mg-acetaminophen 325 mg tablet RxNorm: 216877 1/2 Tablet(s) PO qid prn No Start Date 09/16/2014 Inactive Tornado 3 capsule RxNorm : 1 Capsule(s) PO daily No Start Date 04/21/2015 Inactive amiodarone 200 mg tablet RxNorm: 354285 Tablet(s) PO No Start Date 12/15/2015 Inactive 2 TABS bid X 2 WEEKS THEN 1 PO bid X 2 WEEKS THEN 1 PO DAILY Xanax 0.25 mg tablet RxNorm: 383711 1 Tablet(s) PO BID and 1 tab po q 6 hours No Start Date 04/22/2015 Inactive Medication Administered No Medication Administered data Immunizations Vaccine Codes Date Status Influenza CVX: 141 11/13/2015 completed Influenza CVX: 141 12/18/2014 completed Pneumococcal (Adult) CVX: 33 11/14/2014 completed Influenza CVX: 141 11/07/2013 completed Assessments Condition Codes Effective Dates Epilepsy, unspecified, not intractable, without status epilepticus ICD-10: G40.909 ICD-9: 345.90 10/08/2016 Essential (primary) hypertension ICD-10: I10 ICD-9: 401.9 10/08/2016 Iron deficiency anemia secondary to blood loss (chronic) ICD -10: D50.0 ICD-9: 280.0 10/08/2016 Pain in right hip ICD-10: M25.551 ICD-9: 719.45 10/08/2016 Idiopathic gout, left elbow ICD-10: M10.022 ICD-9: 274.00 07/16/2016 Pain in left elbow ICD-10: M25.522 ICD-9: 719.42 07/16/2016 Mastodynia ICD-10: N64.4 ICD-9: 611.71 02/26/2016 Hypoxemia ICD-10: R09.02 ICD-9: 799.02 02/26/2016 Disorientation, unspecified ICD-10: R41.0 ICD-9: 293.0 02/26/2016 Other microscopic hematuria ICD-10: R31.29 ICD-9: 599.72 02/26/2016 Localized edema ICD-10: R60.0 ICD-9: 782.3 11/13/2015 Encounter for immunization ICD-10: Z23 ICD-9: V04.81 11/13/2015 Mild cognitive impairment, so stated ICD-10: G31.84 ICD-9: 331.83 11/13/2015 Contusion of abdominal wall, sequela ICD-10: S30.1XXS ICD-9: 906.3 08/22/2015 Urinary tract infection, site not specified ICD-10: N39.0 ICD-9: 599.0 08/22/2015 Other intra-abdominal and pelvic swelling, mass and lump ICD -10: R19.09 ICD-9: 789.30 08/22/2015 Anemia, unspecified ICD-10: D64.9 ICD-9: 285.9 07/22/2015 Dysuria ICD-10: R30.0 ICD-9: 788.1 07/22/2015 Pressure ulcer of left buttock, stage 2 ICD-10: L89.322 ICD-9: 707.05 06/20/2015 Corns and callosities ICD-10: L84 ICD-9: 700 06/20/2015 Paroxysmal atrial fibrillation ICD-10: I48.0 ICD-9: 427.31 04/22/2015 Shortness of breath ICD-10: R06.02 ICD-9: 786.05 04/22/2015 Nonrheumatic aortic (valve) stenosis ICD-10: I35.0 ICD-9: 424.1 04/22/2015 Bilateral primary osteoarthritis of knee ICD-10: M17.0 ICD-9: 715.96 12/12/2014 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 ICD-10: L98.421 ICD-9: 707.8 12/12/2014 Encounter for immunization ICD-10: Z23 ICD-9: V03.82 11/14/2014 Callous ulcer ICD-9: 707.8 10/17/2014 Callus of foot ICD-9: 700 10/17/2014 ESSENTIAL HYPERTENSION ICD-9: 401.9 10/17 ALLERGIC RHINITIS ICD-9: 477.9 2014 Iron deficiency anemia ICD-9: 280.9 06/06 A-fib ICD-9: 427.31 05/17/2014 Osteoarthritis ICD-9: 715.90 05/17/2014 Right hip pain ICD-9: 719.45 05/17/2014 Reason For Visit Reason For Visit Effective Dates Notes Hospital Follow Up 10/08/2016 elbow pain 07/16/2016 alteration of consciousness 02/26/2016 memory loss 11/13/2015 abdominal pain 08/22/2015 sinus congestion 07/22/2015 edema 06/20/2015 ~generic 06/04/2015 dry mouth edema 04/22/2015 vaccination against influenza 12/18/2014 sinus congestion 12/12/2014 feet- he has been soaking in Vic foot soak. skin lesion 11/14/2014 feet- he has been soaking in Vic foot soak. skin lesion 10/17/2014 feet- he has been soaking in Vic foot soak. sinus congestion 06/06/2014 right sinus congestion 05/17/2014 right Results Observation Observation Code Item Item Code Result Date Uric Acid Ord77 Uric A 8.9 mg/dL 07/16/2016 Cbc With Differential Ord2 WBC 4.23 K/ul 07/16/2016 Cbc With Differential Ord2 RBC 2.87 M/ul 07/16/2016 Cbc With Differential Ord2 HGB 9.2 g/dl 07/16/2016 Cbc With Differential Ord2 HCT 28.3 % 07/16/2016 Cbc With Differential Ord2 Neut% 64.0 % 07/16/2016 Cbc With Differential Ord2 MCV 98.6 fl 07/16/2016 Cbc With Differential Ord2 Lymph% 21.3 % 07/16/2016 Cbc With Differential Ord2 [place]% 12.3 % 07/16/2016 Cbc With Differential Ord2 MCH 32.1 pg 07/16/2016 Cbc With Differential Ord2 MCHC 32.5 pg 07/16/2016 Cbc With Differential Ord2 Eos% 1.9 % 07/16/2016 Cbc With Differential Ord2 Baso% 0.5 % 07/16/2016 Cbc With Differential Ord2 PLT 113 K/ul 07/16/2016 Cbc With Differential Ord2 RDW 13.4 % 07/16/2016 Cbc With Differential Ord2 Neut ABS# 2.71 K/ul 07/16/2016 Cbc With Differential Ord2 Lymph ABS# 0.90 K/ul 07/16/2016 Cbc With Differential Ord2 [place] ABS# 0.5 K/ul 07/16/2016 Cbc With Differential Ord2 Eos ABS# 0.1 K/ul 07/16/2016 Cbc With Differential Ord2 Baso ABS# 0.0 K/ul 07/16/2016 Urine Culture Ucult Complete NO Growth Day 2 02/28/2016 Urine Culture Ucult Preliminary NO Growth Day 1 02/28/2016 Urine Culture Ucult Complete NO Growth Day 2 08/25/2015 Urine Culture Ucult Preliminary NO Growth Day 1 08/25/2015 Urine Culture Ucult Complete Growth of aerobe sent to ref lab 07/24/2015 Cbc With Differential Ord2 WBC 4.11 K/ul 07/23/2015 Cbc With Differential Ord2 RBC 3.20 M/ul 07/23/2015 Cbc With Differential Ord2 HGB 10.4 g/dl 07/23/2015 Cbc With Differential Ord2 Neut% 68.1 % 07/23/2015 Cbc With Differential Ord2 HCT 32.4 % 07/23/2015 Cbc With Differential Ord2 Lymph% 18.5 % 07/23/2015 Cbc With Differential Ord2 MCV 101.3 fl 07/23/2015 Cbc With Differential Ord2 MCH 32.5 pg 07/23/2015 Cbc With Differential Ord2 [place]% 10.7 % 07/23/2015 Cbc With Differential Ord2 Eos% 2.2 % 07/23/2015 Cbc With Differential Ord2 MCHC 32.1 pg 07/23/2015 Cbc With Differential Ord2 PLT 121 K/ul 07/23/2015 Cbc With Differential Ord2 Baso% 0.5 % 07/23/2015 Cbc With Differential Ord2 RDW 14.2 % 07/23/2015 Cbc With Differential Ord2 Neut ABS# 2.80 K/ul 07/23/2015 Cbc With Differential Ord2 Lymph ABS# 0.76 K/ul 07/23/2015 Cbc With Differential Ord2 [place] ABS# 0.4 K/ul 07/23/2015 Cbc With Differential Ord2 Eos ABS# 0.1 K/ul 07/23/2015 Cbc With Differential Ord2 Baso ABS# 0.0 K/ul 07/23/2015 Comp Metabolic Zjs756 NA 138 mEq/L 07/23/2015 Comp Metabolic Oif099 K 4.0 mEq/L 07/23/2015 Comp Metabolic Dyz359 CL 101 mEq/L 07/23/2015 Comp Metabolic Bzf381 CO2 33.0 mEq/L 07/23/2015 Comp Metabolic Fwm897 ANION GAP 8 07/23/2015 Comp Metabolic Nus542 GLUCOSE 101 mg/dL 07/23/2015 Comp Metabolic Jnv312 Creat 1.2 mg/dL 07/23/2015 Comp Metabolic Nwd833 eGFR 65 ml/min/1.73m2 07/23/2015 Comp Metabolic Kcx515 BUN 16 mg/dL 07/23/2015 Comp Metabolic Vwp872 B/C Ratio 13.9 Ratio 07/23/2015 Comp Metabolic Sat160 CALCIUM 8.4 mg/dL 07/23/2015 Comp Metabolic Usp073 ALK PHOS 44 U/L 07/23/2015 Comp Metabolic Yih558 AST(SGOT) 16 U/L 07/23/2015 Comp Metabolic Qds300 ALT(SGPT) 11 U/L 07/23/2015 Comp Metabolic Jns751 BILI T 0.7 mg/dL 07/23/2015 Comp Metabolic Ojy897 ALBUMIN 3.3 g/dL 07/23/2015 Comp Metabolic Djn807 TPRO 7.3 g/dL 07/23/2015 Comp Metabolic Qbw682 GLOB 4.0 g/dL 07/23/2015 Comp Metabolic Xit733 A/G Ratio 0.8 Ratio 07/23/2015 Comp Metabolic Qmt367 Osmo 277 mOsmo 07/23/2015 Review of Systems System Result Effective Dates Constitutional No recent illness 2016 Constitutional No anorexia 10/08/2016 Constitutional No night sweats 2016 Constitutional No chills 10/08/2016 Constitutional No diaphoresis 10/08/2016 Constitutional fatigue 10/08/2016 Constitutional No fever 10/08/2016 Constitutional insomnia 10/08/2016 Constitutional No malaise 10/08/2016 Constitutional No weight loss 10/08/2016 Constitutional No weight gain 10/08/2016 Constitutional No obesity 10/08/2016 Eyes No eye pain 10/08/2016 Eyes No vision change 10/08/2016 Ears/Nose/Throat/Neck No dizziness 2016 Ears/Nose/Throat/Neck No headache 2016 Cardiovascular No chest pain/pressure 02/2016 Cardiovascular No dyspnea 10/08/2016 Respiratory No chest congestion 2016 Respiratory No chest tightness 2016 Respiratory No cigarette smoking 2016 Respiratory No cough 10/08/2016 Gastrointestinal No constipation 2016 Gastrointestinal No diarrhea 10/08/2016 Gastrointestinal No nausea 10/08/2016 Gastrointestinal No vomiting 10/08/2016 Genitourinary/Nephrology No anuria/oliguria 10/08/2016 Genitourinary/Nephrology No dysuria 10/08 Musculoskeletal arthralgia(s) 10/08/2016 Musculoskeletal joint complaint 2016 Dermatologic No rash 10/08/2016 Dermatologic No sores 10/08/2016 Neurologic No alteration of consciousness 10/08/2016 Neurologic No headache 10/08/2016 Neurologic memory loss 10/08/2016 Psychiatric anxiety 10/08/2016 Psychiatric No depression 10/08/2016 Psychiatric No disturbances of consciousness 10/08/2016 Psychiatric No drug abuse 10/08/2016 Psychiatric No eating disorder 2016 Psychiatric No hallucination 10/08/2016 Psychiatric No vivi 10/08/2016 Psychiatric No psychosis 10/08/2016 Psychiatric No suicidality 10/08/2016 Constitutional No recent illness 2016 Constitutional No chills 07/16/2016 Constitutional No diaphoresis 07/16/2016 Constitutional No fever 07/16/2016 Eyes No eye erythema 07/16/2016 Ears/Nose/Throat/Neck No nasal allergies 07/16/2016 Ears/Nose/Throat/Neck No nasal discharge 07/16/2016 Cardiovascular No chest pain/pressure 10/2016 Cardiovascular No dyspnea 07/16/2016 Respiratory No cough 07/16/2016 Respiratory No dyspnea 07/16/2016 Gastrointestinal No abdominal pain 2016 Musculoskeletal joint complaint 2016 Dermatologic erythema 07/16/2016 Neurologic No alteration of consciousness 07/16/2016 Neurologic No mental status change 2016 Constitutional No recent illness 2016 Constitutional No anorexia 02/26/2016 Constitutional No night sweats 2016 Constitutional No chills 02/26/2016 Constitutional No diaphoresis 02/26/2016 Constitutional No fatigue 02/26/2016 Constitutional No fever 02/26/2016 Constitutional insomnia 02/26/2016 Constitutional No malaise 02/26/2016 Constitutional No weight loss 02/26/2016 Constitutional No weight gain 02/26/2016 Constitutional No obesity 02/26/2016 Eyes No eye pain 02/26/2016 Eyes No vision change 02/26/2016 Ears/Nose/Throat/Neck No dizziness 2016 Ears/Nose/Throat/Neck No headache 2016 Cardiovascular No chest pain/pressure Cardiovascular No dyspnea 02/26/2016 Respiratory No chest congestion 2016 Respiratory No chest tightness 2016 Respiratory No cigarette smoking 2016 Respiratory No cough 02/26/2016 Gastrointestinal No constipation 2016 Gastrointestinal No diarrhea 02/26/2016 Gastrointestinal No nausea 02/26/2016 Gastrointestinal No vomiting 02/26/2016 Genitourinary/Nephrology No anuria/oliguria 02/26/2016 Genitourinary/Nephrology No dysuria 02/25 Musculoskeletal arthralgia(s) 02/26/2016 Musculoskeletal joint complaint 2016 Dermatologic No rash 02/26/2016 Dermatologic No sores 02/26/2016 Neurologic No alteration of consciousness 02/26/2016 Neurologic No headache 02/26/2016 Neurologic memory loss 02/26/2016 Neurologic mental status change 2016 Psychiatric No anxiety 02/26/2016 Psychiatric No depression 02/26/2016 Psychiatric disturbances of memory 2016 Psychiatric disturbances of thinking Psychiatric disturbances of emotion 02/25 Psychiatric No disturbances of consciousness 02/26/2016 Psychiatric No drug abuse 02/26/2016 Psychiatric No eating disorder 2016 Psychiatric No hallucination 02/26/2016 Psychiatric No vivi 02/26/2016 Psychiatric No psychosis 02/26/2016 Psychiatric No suicidality 02/26/2016 Genitourinary/Nephrology breast complaint 02/26/2016 Constitutional No recent illness 2015 Constitutional No chills 11/13/2015 Constitutional No diaphoresis 11/13/2015 Constitutional No fever 11/13/2015 Eyes No eye erythema 11/13/2015 Ears/Nose/Throat/Neck No nasal allergies 11/13/2015 Ears/Nose/Throat/Neck No nasal discharge 11/13/2015 Cardiovascular No dyspnea 11/13/2015 Cardiovascular No chest pain/pressure 07/2015 Respiratory No cough 11/13/2015 Respiratory No dyspnea 11/13/2015 Respiratory No chest congestion 2015 Gastrointestinal No abdominal pain 2015 Musculoskeletal No joint complaint 2015 Dermatologic No rash 11/13/2015 Neurologic No alteration of consciousness 11/13/2015 Neurologic memory loss 11/13/2015 Constitutional recent illness 08/22/2015 Constitutional No anorexia 08/22/2015 Constitutional No night sweats 2015 Constitutional No chills 08/22/2015 Constitutional No diaphoresis 08/22/2015 Constitutional fatigue 08/22/2015 Constitutional No fever 08/22/2015 Constitutional insomnia 08/22/2015 Constitutional No malaise 08/22/2015 Eyes No eye discharge 08/22/2015 Eyes No eye erythema 08/22/2015 Ears/Nose/Throat/Neck No dizziness 2015 Ears/Nose/Throat/Neck No headache 2015 Cardiovascular No chest pain/pressure Respiratory cough 08/22/2015 Gastrointestinal abdominal pain 2015 Gastrointestinal No diarrhea 08/22/2015 Gastrointestinal No constipation 2015 Genitourinary/Nephrology urinary frequency 08/22/2015 Genitourinary/Nephrology urinary incontinence 08/22/2015 Musculoskeletal joint complaint 2015 Dermatologic No rash 08/22/2015 Neurologic No alteration of consciousness 08/22/2015 Neurologic memory loss 08/22/2015 Psychiatric anxiety 08/22/2015 Endocrine No dry or coarse skin 2015 Constitutional recent illness 07/22/2015 Constitutional No fatigue 07/22/2015 Constitutional No fever 07/22/2015 Constitutional No insomnia 07/22/2015 Constitutional malaise 07/22/2015 Eyes No eye discharge 07/22/2015 Ears/Nose/Throat/Neck nasal allergies Ears/Nose/Throat/Neck nasal discharge Respiratory cough 07/22/2015 Respiratory No dyspnea 07/22/2015 Gastrointestinal No abdominal pain 2015 Gastrointestinal No constipation 2015 Gastrointestinal No diarrhea 07/22/2015 Dermatologic No rash 07/22/2015 Eyes No eye erythema 07/22/2015 Ears/Nose/Throat/Neck sinus congestion Cardiovascular No dyspnea 07/22/2015 Cardiovascular No chest pain/pressure Respiratory chest congestion 07/22/2015 Musculoskeletal No joint complaint 2015 Genitourinary/Nephrology dysuria 2015 Constitutional No recent illness 2015 Constitutional No anorexia 06/20/2015 Constitutional No night sweats 2015 Constitutional No chills 06/20/2015 Constitutional No diaphoresis 06/20/2015 Constitutional No fatigue 06/20/2015 Constitutional No fever 06/20/2015 Constitutional No insomnia 06/20/2015 Constitutional No malaise 06/20/2015 Constitutional No weight loss 06/20/2015 Constitutional No weight gain 06/20/2015 Constitutional No obesity 06/20/2015 Cardiovascular edema 06/20/2015 Dermatologic No rash 06/20/2015 Dermatologic sores 06/20/2015 Musculoskeletal muscle weakness 2015 Musculoskeletal No myalgias 06/20/2015 Musculoskeletal No joint complaint 2015 Respiratory No cough 06/20/2015 Respiratory No dyspnea on exertion 2015 Respiratory No dyspnea 06/20/2015 Ears/Nose/Throat/Neck No nasal discharge 06/20/2015 Ears/Nose/Throat/Neck No nasal allergies 06/20/2015 Eyes eye erythema 06/20/2015 Eyes No eye discharge 06/20/2015 Genitourinary/Nephrology No dysuria 06/19 Gastrointestinal No diarrhea 06/20/2015 Gastrointestinal No constipation 2015 Gastrointestinal No abdominal pain 2015 Psychiatric No anxiety 06/20/2015 Psychiatric No depression 06/20/2015 Constitutional No chills 06/04/2015 Constitutional No diaphoresis 06/04/2015 Constitutional No fatigue 06/04/2015 Constitutional No fever 06/04/2015 Constitutional No insomnia 06/04/2015 Constitutional No malaise 06/04/2015 Eyes No eye discharge 06/04/2015 Ears/Nose/Throat/Neck No nasal allergies 06/04/2015 Ears/Nose/Throat/Neck No nasal discharge 06/04/2015 Respiratory No cough 06/04/2015 Respiratory No dyspnea 06/04/2015 Musculoskeletal muscle weakness 2015 Psychiatric No anxiety 06/04/2015 Psychiatric No depression 06/04/2015 Eyes No eye erythema 06/04/2015 Cardiovascular edema 06/04/2015 Ears/Nose/Throat/Neck No oral pain 2015 Musculoskeletal No joint complaint 2015 Dermatologic sores 06/04/2015 Constitutional recent illness 04/22/2015 Constitutional No anorexia 04/22/2015 Constitutional No night sweats 2015 Constitutional No chills 04/22/2015 Constitutional No diaphoresis 04/22/2015 Constitutional fatigue 04/22/2015 Constitutional insomnia 04/22/2015 Constitutional No fever 04/22/2015 Constitutional No weight loss 04/22/2015 Constitutional weight gain 04/22/2015 Eyes No eye erythema 04/22/2015 Eyes No eye discharge 04/22/2015 Ears/Nose/Throat/Neck No dizziness 2015 Ears/Nose/Throat/Neck No headache 2015 Cardiovascular No chest pain/pressure Cardiovascular edema 04/22/2015 Cardiovascular fatigue 04/22/2015 Respiratory productive sputum 04/22/2015 Respiratory cough 04/22/2015 Gastrointestinal No abdominal pain 2015 Gastrointestinal constipation 04/22/2015 Gastrointestinal No diarrhea 04/22/2015 Genitourinary/Nephrology No dysuria 04/21 Musculoskeletal joint complaint 2015 Dermatologic No drainage 04/22/2015 Neurologic No alteration of consciousness 04/22/2015 Psychiatric anxiety 04/22/2015 Psychiatric depression 04/22/2015 Endocrine No dry or coarse skin 2015 Hematologic/Lymphatic No abnormal ecchymoses 04/22/2015 Constitutional No recent illness 2014 Constitutional No anorexia 12/12/2014 Constitutional No night sweats 2014 Constitutional No chills 12/12/2014 Constitutional No diaphoresis 12/12/2014 Constitutional No fatigue 12/12/2014 Constitutional No fever 12/12/2014 Constitutional No insomnia 12/12/2014 Constitutional No malaise 12/12/2014 Eyes No eye discharge 12/12/2014 Eyes No eye erythema 12/12/2014 Ears/Nose/Throat/Neck No dizziness 2014 Ears/Nose/Throat/Neck No headache 2014 Ears/Nose/Throat/Neck nasal allergies 06/2014 Ears/Nose/Throat/Neck nasal discharge 06/2014 Ears/Nose/Throat/Neck No otitis media 06/2014 Ears/Nose/Throat/Neck sinus congestion Cardiovascular No chest pain/pressure 06/2014 Cardiovascular No dyspnea 12/12/2014 Cardiovascular No edema 12/12/2014 Cardiovascular No near-syncope/dizziness 12/12/2014 Cardiovascular No palpitations 2014 Respiratory No chest congestion 2014 Respiratory No cough 12/12/2014 Gastrointestinal No abdominal pain 2014 Gastrointestinal No constipation 2014 Gastrointestinal No diarrhea 12/12/2014 Gastrointestinal No nausea 12/12/2014 Gastrointestinal No vomiting 12/12/2014 Genitourinary/Nephrology No dysuria 12/12 Musculoskeletal joint complaint 2014 Dermatologic No rash 12/12/2014 Dermatologic No sores 12/12/2014 Neurologic No alteration of consciousness 12/12/2014 Psychiatric No anxiety 12/12/2014 Psychiatric No depression 12/12/2014 Constitutional No recent illness 2014 Constitutional No anorexia 11/14/2014 Constitutional No night sweats 2014 Constitutional No chills 11/14/2014 Constitutional No diaphoresis 11/14/2014 Constitutional No fatigue 11/14/2014 Constitutional No fever 11/14/2014 Constitutional No insomnia 11/14/2014 Constitutional No malaise 11/14/2014 Constitutional No weight loss 11/14/2014 Constitutional No weight gain 11/14/2014 Eyes No eye discharge 11/14/2014 Eyes No eye erythema 11/14/2014 Ears/Nose/Throat/Neck No dizziness 2014 Ears/Nose/Throat/Neck No headache 2014 Ears/Nose/Throat/Neck nasal allergies 09/2014 Ears/Nose/Throat/Neck nasal discharge 09/2014 Ears/Nose/Throat/Neck No otitis media 09/2014 Ears/Nose/Throat/Neck sinus congestion Cardiovascular No chest pain/pressure 09/2014 Cardiovascular No dyspnea 11/14/2014 Cardiovascular No edema 11/14/2014 Cardiovascular No near-syncope/dizziness 11/14/2014 Cardiovascular No palpitations 2014 Respiratory No chest congestion 2014 Respiratory No cough 11/14/2014 Gastrointestinal No abdominal pain 2014 Gastrointestinal No constipation 2014 Gastrointestinal No diarrhea 11/14/2014 Gastrointestinal No nausea 11/14/2014 Gastrointestinal No vomiting 11/14/2014 Genitourinary/Nephrology No dysuria 11/14 Musculoskeletal joint complaint 2014 Dermatologic No rash 11/14/2014 Dermatologic sores 11/14/2014 Neurologic No alteration of consciousness 11/14/2014 Psychiatric No anxiety 11/14/2014 Psychiatric No depression 11/14/2014 Constitutional No recent illness 2014 Constitutional No anorexia 10/17/2014 Constitutional No night sweats 2014 Constitutional No chills 10/17/2014 Constitutional No diaphoresis 10/17/2014 Constitutional No fatigue 10/17/2014 Constitutional No fever 10/17/2014 Constitutional No insomnia 10/17/2014 Constitutional No malaise 10/17/2014 Constitutional No weight loss 10/17/2014 Constitutional No weight gain 10/17/2014 Eyes No eye discharge 10/17/2014 Eyes No eye erythema 10/17/2014 Ears/Nose/Throat/Neck nasal allergies 11/2014 Ears/Nose/Throat/Neck nasal discharge 11/2014 Ears/Nose/Throat/Neck No otitis media 11/2014 Ears/Nose/Throat/Neck sinus congestion Cardiovascular No chest pain/pressure 11/2014 Cardiovascular No dyspnea 10/17/2014 Cardiovascular No edema 10/17/2014 Respiratory No cough 10/17/2014 Gastrointestinal No abdominal pain 2014 Gastrointestinal No constipation 2014 Gastrointestinal No diarrhea 10/17/2014 Genitourinary/Nephrology No dysuria 10/17 Musculoskeletal joint complaint 2014 Dermatologic No rash 10/17/2014 Dermatologic No sores 10/17/2014 Neurologic No alteration of consciousness 10/17/2014 Ears/Nose/Throat/Neck No dizziness 2014 Ears/Nose/Throat/Neck No headache 2014 Cardiovascular No near-syncope/dizziness 10/17/2014 Cardiovascular No palpitations 2014 Respiratory No chest congestion 2014 Gastrointestinal No nausea 10/17/2014 Gastrointestinal No vomiting 10/17/2014 Constitutional No recent illness 2014 Constitutional No anorexia 06/06/2014 Constitutional No night sweats 2014 Constitutional No chills 06/06/2014 Constitutional No diaphoresis 06/06/2014 Constitutional No fatigue 06/06/2014 Constitutional No fever 06/06/2014 Constitutional No insomnia 06/06/2014 Constitutional No malaise 06/06/2014 Constitutional No weight loss 06/06/2014 Constitutional No weight gain 06/06/2014 Eyes No eye discharge 06/06/2014 Eyes No eye erythema 06/06/2014 Ears/Nose/Throat/Neck nasal allergies Ears/Nose/Throat/Neck nasal discharge Ears/Nose/Throat/Neck No otitis media Ears/Nose/Throat/Neck sinus congestion Cardiovascular No chest pain/pressure Cardiovascular No dyspnea 06/06/2014 Cardiovascular No edema 06/06/2014 Respiratory No cough 06/06/2014 Gastrointestinal No abdominal pain 2014 Gastrointestinal No constipation 2014 Gastrointestinal No diarrhea 06/06/2014 Genitourinary/Nephrology No dysuria 06/06 Musculoskeletal joint complaint 2014 Dermatologic No rash 06/06/2014 Dermatologic No sores 06/06/2014 Neurologic No alteration of consciousness 06/06/2014 Constitutional No recent illness 2014 Constitutional No anorexia 05/17/2014 Constitutional No night sweats 2014 Constitutional No chills 05/17/2014 Constitutional No diaphoresis 05/17/2014 Constitutional No fatigue 05/17/2014 Constitutional No fever 05/17/2014 Constitutional No insomnia 05/17/2014 Constitutional No malaise 05/17/2014 Constitutional No weight loss 05/17/2014 Constitutional No weight gain 05/17/2014 Eyes No eye discharge 05/17/2014 Eyes No eye erythema 05/17/2014 Ears/Nose/Throat/Neck No dizziness 2014 Ears/Nose/Throat/Neck No headache 2014 Cardiovascular No chest pain/pressure 11/2014 Cardiovascular No dyspnea 05/17/2014 Cardiovascular No edema 05/17/2014 Respiratory No productive sputum 2014 Respiratory No chest congestion 2014 Respiratory No cough 05/17/2014 Gastrointestinal No constipation 2014 Gastrointestinal No diarrhea 05/17/2014 Gastrointestinal No nausea 05/17/2014 Gastrointestinal No vomiting 05/17/2014 Genitourinary/Nephrology No dysuria 05/17 Genitourinary/Nephrology urinary incontinence 05/17/2014 Musculoskeletal joint complaint 2014 Dermatologic No rash 05/17/2014 Dermatologic No sores 05/17/2014 Dermatologic callus 05/17/2014 Neurologic No alteration of consciousness 05/17/2014 Psychiatric No anxiety 05/17/2014 Psychiatric No depression 05/17/2014 Hematologic/Lymphatic No abnormal bleeding and bruising 05/17/2014 Physical Exam Exam Name System Name Item Name Status Result Effective Dates Notes Full Exam - General 1994 Constitutional general appearance Development: well developed 10/08/2016 None Full Exam - General 1994 Constitutional general appearance Development: appears stated age 0910/08/2016 None Full Exam - General 1994 Eyes conjunctiva /eyelids Overall: conjunctiva clear 10/08/2016 None Full Exam - General 1994 Eyes conjunctiva /eyelids Overall: cornea clear 10/08/2016 None Full Exam - General 1994 Eyes conjunctiva /eyelids Overall: eyelids normal 10/08/2016 None Full Exam - General 1994 Eyes pupils and irises Overall: pupils equal, round, reactive to light and accomodation 10/08/2016 None Full Exam - General 1994 Ears/Nose/Throat otoscopic exam External auditory canal: partial cerumen occlusion 10/08/2016 None Full Exam - General 1994 Ears/Nose/Throat oral cavity/pharynx/larynx Overall: oral mucosa clear 10/08/2016 None Full Exam - General 1994 Respiratory auscultation Overall: breath sounds clear bilaterally 10/08/2016 None Full Exam - General 1994 Respiratory respiratory effort/rhythm Overall: no retractions 10/08/2016 None Full Exam - General 1994 Respiratory respiratory effort/rhythm Overall: normal rate 10/08/2016 None Full Exam - General 1994 Cardiovascular auscultation of heart Overall: regular rate 10/08/2016 None Full Exam - General 1994 Cardiovascular auscultation of heart Systolic murmur: holosystolic 10/08/2016 None Full Exam - General 1994 Cardiovascular auscultation of heart Systolic murmur grade: III/ 10/08/2016 None Full Exam - General 1994 Abdomen abdominal exam Overall: no tenderness 10/08/2016 None Full Exam - General 1994 Abdomen abdominal exam Overall: normal bowel sounds 10/08/2016 None Full Exam - General 1994 Lymphatic neck nodes Overall: anterior cervical chain benign 10/08/2016 None Full Exam - General 1994 Lymphatic neck nodes Overall: posterior cervical chain benign 10/08/2016 None Full Exam - General 1994 Integument inspection of skin Overall: few scattered moles, no gross abnormalities 10/08/2016 None Full Exam - General 1994 Neurologic mental status Overall: alert 10/08/2016 None Full Exam - General 1994 Neurologic mental status Overall: oriented 10/08/2016 None Full Exam - General 1994 Psychiatric orientation/consciousness Overall: oriented to person, place and time 10/08/2016 None Full Exam - General 1994 Psychiatric behavior/psychomotor activity Psychomotor activity: psychomotor slowing 10/08/2016 None Full Exam - General 1994 Psychiatric mood and affect Mood: flat 10/08/2016 None Full Exam - General 1994 Psychiatric mood and affect Mood: confused 10/08/2016 None Full Exam - General 1994 Psychiatric mood and affect Affect: flat 10/08/2016 None Full Exam - General 1994 Psychiatric appearance Grooming: well-groomed 10/08/2016 None Full Exam - General 1994 Psychiatric speech Overall: normal quality, no aphasia 10/08/2016 None Full Exam - General 1994 Psychiatric speech Rate of production: slow 10/08/2016 None Full Exam - General 1994 Constitutional general appearance Assistive Device: wheelchair 10/08/2016 None Full Exam - Orthopedics Constitutional general appearance Overall: well nourished 07/16/2016 None Full Exam - Orthopedics Constitutional general appearance Overall: well developed 07/16/2016 None Full Exam - Orthopedics Constitutional general appearance Overall: in no acute distress 07/16/2016 None Full Exam - Orthopedics Eyes conjunctiva/ eyelids Overall: conjunctiva clear 07/16/2016 None Full Exam - Orthopedics Eyes conjunctiva/ eyelids Overall: eyelids normal 07/16/2016 None Full Exam - Orthopedics Ears/Nose/Throat lips/teeth/gingiva Overall: benign lips 07/16/2016 None Full Exam - Orthopedics Ears/Nose/Throat oral cavity/pharynx/larynx Overall: oral mucosa clear 07/16/2016 None Full Exam - Orthopedics Respiratory respiratory effort/rhythm Overall: no retractions 07/16/2016 None Full Exam - Orthopedics Respiratory respiratory effort/rhythm Overall: normal rate 07/16/2016 None Full Exam - Orthopedics MS: right upper extremity insp & palp - RUE Elbow: joint redness 07/16/2016 None Full Exam - Orthopedics MS: right upper extremity insp & palp - RUE Elbow: joint swelling 07/16/2016 None Full Exam - Orthopedics Neurological orientation Overall: alert 07/16/2016 None Full Exam - Orthopedics Integument insp & palp - left upper extremity Elbow inspection: erythema 07/16/2016 None Full Exam - Orthopedics Cardiovascular examination of vasculature Overall: no clubbing, cyanosis, edema 07/16/2016 None Full Exam - General 1994 Constitutional general appearance Development: well developed 02/26/2016 None Full Exam - General 1994 Constitutional general appearance Development: appears stated age 0102/26/2016 None Full Exam - General 1994 Eyes conjunctiva /eyelids Overall: conjunctiva clear 02/26/2016 None Full Exam - General 1994 Eyes conjunctiva /eyelids Overall: cornea clear 02/26/2016 None Full Exam - General 1994 Eyes conjunctiva /eyelids Overall: eyelids normal 02/26/2016 None Full Exam - General 1994 Eyes pupils and irises Overall: pupils equal, round, reactive to light and accomodation 02/26/2016 None Full Exam - General 1994 Ears/Nose/Throat oral cavity/pharynx/larynx Overall: oral mucosa clear 02/26/2016 None Full Exam - General 1994 Ears/Nose/Throat otoscopic exam External auditory canal: partial cerumen occlusion 02/26/2016 None Full Exam - General 1994 Respiratory auscultation Overall: breath sounds clear bilaterally 02/26/2016 None Full Exam - General 1994 Respiratory respiratory effort/rhythm Overall: no retractions 02/26/2016 None Full Exam - General 1994 Respiratory respiratory effort/rhythm Overall: normal rate 02/26/2016 None Full Exam - General 1994 Cardiovascular auscultation of heart Overall: regular rate 02/26/2016 None Full Exam - General 1994 Cardiovascular auscultation of heart Systolic murmur: holosystolic 02/26/2016 None Full Exam - General 1994 Cardiovascular auscultation of heart Systolic murmur grade: III/ 02/26/2016 None Full Exam - General 1994 Chest/Breast breast and axillae palpation Overall: no nipple discharge 02/26/2016 None Full Exam - General 1994 Chest/Breast breast and axillae palpation Nipple: tender 02/26/2016 None Full Exam - General 1994 Chest/Breast breast and axillae palpation Nipple: no discharge 02/26/2016 None Full Exam - General 1994 Chest/Breast breast/chest inspection Overall: breasts to symmetric and without lesions 02/26/2016 None Full Exam - General 1994 Chest/Breast breast/chest inspection Breast symmetry: symmetric 02/26/2016 None Full Exam - General 1994 Abdomen abdominal exam Overall: no tenderness 02/26/2016 None Full Exam - General 1994 Abdomen abdominal exam Overall: normal bowel sounds 02/26/2016 None Full Exam - General 1994 Neurologic mental status Overall: alert 02/26/2016 None Full Exam - General 1994 Neurologic mental status Overall: oriented 02/26/2016 None Full Exam - General 1994 Psychiatric orientation/consciousness Overall: oriented to person, place and time 02/26/2016 None Full Exam - General 1994 Psychiatric behavior/psychomotor activity Psychomotor activity: psychomotor slowing 02/26/2016 None Full Exam - General 1994 Psychiatric mood and affect Mood: flat 02/26/2016 None Full Exam - General 1994 Psychiatric mood and affect Mood: confused 02/26/2016 None Full Exam - General 1994 Psychiatric mood and affect Affect: flat 02/26/2016 None Full Exam - General 1994 Psychiatric appearance Eye contact: no 02/26/2016 None Full Exam - General 1994 Psychiatric appearance Grooming: well-groomed 02/26/2016 None Full Exam - General 1994 Psychiatric speech Overall: normal quality, no aphasia 02/26/2016 None Full Exam - General 1994 Psychiatric speech Rate of production: slow 02/26/2016 None Full Exam - General 1994 Lymphatic neck nodes Overall: posterior cervical chain benign 02/26/2016 None Full Exam - General 1994 Lymphatic neck nodes Overall: anterior cervical chain benign 02/26/2016 None Full Exam - General 1994 Integument inspection of skin Overall: few scattered moles, no gross abnormalities 02/26/2016 None Full Exam - General 1994 Constitutional general appearance Overall: well developed 11/13/2015 None Full Exam - General 1994 Constitutional general appearance Overall: in no acute distress 11/13/2015 None Full Exam - General 1994 Constitutional general appearance Overall: well nourished 11/13/2015 None Full Exam - General 1994 Eyes conjunctiva /eyelids Overall: conjunctiva clear 11/13/2015 None Full Exam - General 1994 Ears/Nose/Throat otoscopic exam Overall: external auditory canals clear 11/13/2015 None Full Exam - General 1994 Ears/Nose/Throat otoscopic exam Overall: tympanic membranes clear 11/13/2015 None Full Exam - General 1994 Ears/Nose/Throat lips/teeth/gingiva Overall: benign lips 11/13/2015 None Full Exam - General 1994 Ears/Nose/Throat oral cavity/pharynx/larynx Overall: oral mucosa clear 11/13/2015 None Full Exam - General 1994 Ears/Nose/Throat oral cavity/pharynx/larynx Overall: oropharyngeal mucosa clear 11/13/2015 None Full Exam - General 1994 Ears/Nose/Throat oral cavity/pharynx/larynx Overall: no masses 11/13/2015 None Full Exam - General 1994 Respiratory auscultation Overall: breath sounds clear bilaterally 11/13/2015 None Full Exam - General 1994 Respiratory respiratory effort/rhythm Overall: no retractions 11/13/2015 None Full Exam - General 1994 Respiratory respiratory effort/rhythm Overall: normal rate 11/13/2015 None Full Exam - General 1994 Cardiovascular extremities Overall: no clubbing 11/13/2015 None Full Exam - General 1994 Cardiovascular auscultation of heart Overall: regular rate 11/13/2015 None Full Exam - General 1994 Cardiovascular auscultation of heart Overall: normal heart sounds 11/13/2015 None Full Exam - General 1994 Abdomen abdominal exam Overall: no tenderness 11/13/2015 None Full Exam - General 1994 Abdomen abdominal exam Overall: normal bowel sounds 11/13/2015 None Full Exam - General 1994 Musculoskeletal head and neck Overall: head atraumatic 11/13/2015 None Full Exam - General 1994 Neurologic cranial nerves Overall: crainial nerves 2 - 12 grossly intact 11/13/2015 None Full Exam - General 1994 Psychiatric mood and affect Overall: normal mood and affect 11/13/2015 None Full Exam - General 1994 Psychiatric orientation/consciousness Oriented to person: yes 11/13/2015 None Full Exam - General 1994 Psychiatric orientation/consciousness Oriented to place: yes 11/13/2015 None Full Exam - General 1994 Constitutional general appearance Overall: well developed 08/22/2015 None Full Exam - General 1994 Constitutional general appearance Overall: in no acute distress 08/22/2015 None Full Exam - General 1994 Constitutional general appearance Overall: well nourished 08/22/2015 None Full Exam - General 1994 Eyes conjunctiva /eyelids Overall: conjunctiva clear 08/22/2015 None Full Exam - General 1994 Eyes pupils and irises Overall: pupils equal, round, reactive to light and accomodation 08/22/2015 None Full Exam - General 1994 Ears/Nose/Throat otoscopic exam Overall: external auditory canals clear 08/22/2015 None Full Exam - General 1994 Ears/Nose/Throat oral cavity/pharynx/larynx Overall: oral mucosa clear 08/22/2015 None Full Exam - General 1994 Respiratory auscultation Overall: breath sounds clear bilaterally 08/22/2015 None Full Exam - General 1994 Respiratory respiratory effort/rhythm Overall: no retractions 08/22/2015 None Full Exam - General 1994 Respiratory respiratory effort/rhythm Overall: normal rate 08/22/2015 None Full Exam - General 1994 Cardiovascular extremities Overall: no clubbing 08/22/2015 None Full Exam - General 1994 Cardiovascular extremities Edema present: pitting 08/22/2015 None Full Exam - General 1994 Cardiovascular extremities Edema present: severity 1+ - 4 +: 1+ 08/22/2015 None Full Exam - General 1994 Cardiovascular auscultation of heart Overall: regular rate 08/22/2015 None Full Exam - General 1994 Cardiovascular auscultation of heart Overall: normal heart sounds 08/22/2015 None Full Exam - General 1994 Cardiovascular auscultation of heart Rate: regular rate 08/22/2015 None Full Exam - General 1994 Cardiovascular auscultation of heart Rhythm: regular rhythm 08/22/2015 None Full Exam - General 1994 Cardiovascular auscultation of heart Systolic murmur: midsystolic 08/22/2015 None Full Exam - General 1994 Cardiovascular auscultation of heart Systolic murmur grade: III/ 08/22/2015 None Full Exam - General 1994 Abdomen abdominal exam Overall: no tenderness 08/22/2015 None Full Exam - General 1994 Abdomen abdominal exam Overall: normal bowel sounds 08/22/2015 None Full Exam - General 1994 Lymphatic neck nodes Overall: anterior cervical chain benign 08/22/2015 None Full Exam - General 1994 Lymphatic neck nodes Overall: posterior cervical chain benign 08/22/2015 None Full Exam - General 1994 Neurologic cranial nerves Overall: crainial nerves 2 - 12 grossly intact 08/22/2015 None Full Exam - General 1994 Psychiatric orientation/consciousness Overall: oriented to person, place and time 08/22/2015 None Full Exam - General 1994 Abdomen abdominal exam Lower quadrant: mass present 08/22/2015 approx 10cm mass, slight erythema noted, appears larger, slightly more tender Full Exam - General 1994 Constitutional general appearance Overall: well developed 07/22/2015 None Full Exam - General 1994 Constitutional general appearance Overall: in no acute distress 07/22/2015 None Full Exam - General 1994 Constitutional general appearance Overall: well nourished 07/22/2015 None Full Exam - General 1994 Eyes conjunctiva /eyelids Overall: conjunctiva clear 07/22/2015 None Full Exam - General 1994 Ears/Nose/Throat otoscopic exam Overall: external auditory canals clear 07/22/2015 None Full Exam - General 1994 Ears/Nose/Throat oral cavity/pharynx/larynx Overall: oral mucosa clear 07/22/2015 None Full Exam - General 1994 Respiratory auscultation Overall: breath sounds clear bilaterally 07/22/2015 None Full Exam - General 1994 Respiratory respiratory effort/rhythm Overall: no retractions 07/22/2015 None Full Exam - General 1994 Respiratory respiratory effort/rhythm Overall: normal rate 07/22/2015 None Full Exam - General 1994 Cardiovascular auscultation of heart Overall: regular rate 07/22/2015 None Full Exam - General 1994 Cardiovascular auscultation of heart Overall: normal heart sounds 07/22/2015 None Full Exam - General 1994 Cardiovascular auscultation of heart Rate: regular rate 07/22/2015 None Full Exam - General 1994 Cardiovascular auscultation of heart Rhythm: regular rhythm 07/22/2015 None Full Exam - General 1994 Cardiovascular auscultation of heart Systolic murmur: midsystolic 07/22/2015 None Full Exam - General 1994 Cardiovascular auscultation of heart Systolic murmur grade: III/ 07/22/2015 None Full Exam - General 1994 Lymphatic neck nodes Overall: anterior cervical chain benign 07/22/2015 None Full Exam - General 1994 Lymphatic neck nodes Overall: posterior cervical chain benign 07/22/2015 None Full Exam - General 1994 Neurologic cranial nerves Overall: crainial nerves 2 - 12 grossly intact 07/22/2015 None Full Exam - General 1994 Ears/Nose/Throat otoscopic exam Tympanic membrane: air- fluid level 07/22/2015 None Full Exam - General 1994 Ears/Nose/Throat oral cavity/pharynx/larynx Overall: oropharyngeal mucosa clear 07/22/2015 None Full Exam - General 1994 Ears/Nose/Throat oral cavity/pharynx/larynx Overall: no masses 07/22/2015 None Full Exam - General 1994 Ears/Nose/Throat lips/teeth/gingiva Overall: benign lips 07/22/2015 None Full Exam - General 1994 Abdomen abdominal exam Overall: no tenderness 07/22/2015 None Full Exam - General 1994 Abdomen abdominal exam Overall: normal bowel sounds 07/22/2015 None Full Exam - General 1994 Constitutional general appearance Overall: well developed 06/20/2015 None Full Exam - General 1994 Constitutional general appearance Overall: in no acute distress 06/20/2015 None Full Exam - General 1994 Constitutional general appearance Overall: well nourished 06/20/2015 None Full Exam - General 1994 Eyes conjunctiva /eyelids Overall: conjunctiva clear 06/20/2015 None Full Exam - General 1994 Eyes pupils and irises Overall: pupils equal, round, reactive to light and accomodation 06/20/2015 None Full Exam - General 1994 Ears/Nose/Throat otoscopic exam Overall: external auditory canals clear 06/20/2015 None Full Exam - General 1994 Ears/Nose/Throat oral cavity/pharynx/larynx Overall: oral mucosa clear 06/20/2015 None Full Exam - General 1994 Respiratory auscultation Overall: breath sounds clear bilaterally 06/20/2015 None Full Exam - General 1994 Respiratory respiratory effort/rhythm Overall: no retractions 06/20/2015 None Full Exam - General 1994 Respiratory respiratory effort/rhythm Overall: normal rate 06/20/2015 None Full Exam - General 1994 Cardiovascular extremities Overall: no clubbing 06/20/2015 None Full Exam - General 1994 Cardiovascular extremities Edema present: pitting 06/20/2015 None Full Exam - General 1994 Cardiovascular auscultation of heart Overall: regular rate 06/20/2015 None Full Exam - General 1994 Cardiovascular auscultation of heart Overall: normal heart sounds 06/20/2015 None Full Exam - General 1994 Cardiovascular auscultation of heart Rate: regular rate 06/20/2015 None Full Exam - General 1994 Cardiovascular auscultation of heart Rhythm: regular rhythm 06/20/2015 None Full Exam - General 1994 Cardiovascular auscultation of heart Systolic murmur: midsystolic 06/20/2015 None Full Exam - General 1994 Cardiovascular auscultation of heart Systolic murmur grade: III/ 06/20/2015 None Full Exam - General 1994 Abdomen abdominal exam Overall: no tenderness 06/20/2015 None Full Exam - General 1994 Abdomen abdominal exam Overall: normal bowel sounds 06/20/2015 None Full Exam - General 1994 Lymphatic neck nodes Overall: anterior cervical chain benign 06/20/2015 None Full Exam - General 1994 Lymphatic neck nodes Overall: posterior cervical chain benign 06/20/2015 None Full Exam - General 1994 Integument inspection of skin Overall: few scattered moles, no gross abnormalities 06/20/2015 None Full Exam - General 1994 Neurologic cranial nerves Overall: crainial nerves 2 - 12 grossly intact 06/20/2015 None Full Exam - General 1994 Psychiatric orientation/consciousness Overall: oriented to person, place and time 06/20/2015 None Full Exam - General 1994 Cardiovascular extremities Edema present: severity 1+ - 4 +: 1+ 06/20/2015 None Full Exam - General 1994 Constitutional general appearance Overall: well developed 06/04/2015 None Full Exam - General 1994 Constitutional general appearance Overall: in no acute distress 06/04/2015 None Full Exam - General 1994 Constitutional general appearance Overall: well nourished 06/04/2015 None Full Exam - General 1994 Eyes conjunctiva /eyelids Overall: conjunctiva clear 06/04/2015 None Full Exam - General 1994 Eyes pupils and irises Overall: pupils equal, round, reactive to light and accomodation 06/04/2015 None Full Exam - General 1994 Ears/Nose/Throat otoscopic exam Overall: external auditory canals clear 06/04/2015 None Full Exam - General 1994 Ears/Nose/Throat oral cavity/pharynx/larynx Overall: oral mucosa clear 06/04/2015 None Full Exam - General 1994 Respiratory auscultation Overall: breath sounds clear bilaterally 06/04/2015 None Full Exam - General 1994 Respiratory respiratory effort/rhythm Overall: no retractions 06/04/2015 None Full Exam - General 1994 Respiratory respiratory effort/rhythm Overall: normal rate 06/04/2015 None Full Exam - General 1994 Cardiovascular extremities Overall: no clubbing 06/04/2015 None Full Exam - General 1994 Cardiovascular extremities Edema present: pitting 06/04/2015 None Full Exam - General 1994 Cardiovascular auscultation of heart Overall: regular rate 06/04/2015 None Full Exam - General 1994 Cardiovascular auscultation of heart Overall: normal heart sounds 06/04/2015 None Full Exam - General 1994 Cardiovascular auscultation of heart Rate: regular rate 06/04/2015 None Full Exam - General 1994 Cardiovascular auscultation of heart Rhythm: regular rhythm 06/04/2015 None Full Exam - General 1994 Cardiovascular auscultation of heart Systolic murmur: midsystolic 06/04/2015 None Full Exam - General 1994 Cardiovascular auscultation of heart Systolic murmur grade: III/ 06/04/2015 None Full Exam - General 1994 Neurologic cranial nerves Overall: crainial nerves 2 - 12 grossly intact 06/04/2015 None Full Exam - General 1994 Psychiatric orientation/consciousness Overall: oriented to person, place and time 06/04/2015 None Full Exam - General 1994 Integument inspection of skin Location: buttocks 06/04/2015 small, dime sized, pink patch Full Exam - General 1994 Cardiovascular extremities Edema present: severity 1+ - 4 +: 2-3+ 06/04/2015 None Full Exam - General 1994 Constitutional general appearance Overall: well developed 04/22/2015 None Full Exam - General 1994 Constitutional general appearance Overall: in no acute distress 04/22/2015 None Full Exam - General 1994 Constitutional general appearance Overall: well nourished 04/22/2015 None Full Exam - General 1994 Eyes conjunctiva /eyelids Overall: conjunctiva clear 04/22/2015 None Full Exam - General 1994 Eyes pupils and irises Overall: pupils equal, round, reactive to light and accomodation 04/22/2015 None Full Exam - General 1994 Ears/Nose/Throat otoscopic exam Overall: external auditory canals clear 04/22/2015 None Full Exam - General 1994 Ears/Nose/Throat oral cavity/pharynx/larynx Overall: oral mucosa clear 04/22/2015 None Full Exam - General 1994 Respiratory auscultation Overall: breath sounds clear bilaterally 04/22/2015 None Full Exam - General 1994 Respiratory respiratory effort/rhythm Overall: no retractions 04/22/2015 None Full Exam - General 1994 Respiratory respiratory effort/rhythm Overall: normal rate 04/22/2015 None Full Exam - General 1994 Cardiovascular extremities Overall: no clubbing 04/22/2015 None Full Exam - General 1994 Cardiovascular auscultation of heart Overall: regular rate 04/22/2015 None Full Exam - General 1994 Cardiovascular auscultation of heart Overall: normal heart sounds 04/22/2015 None Full Exam - General 1994 Cardiovascular auscultation of heart Rate: regular rate 04/22/2015 None Full Exam - General 1994 Cardiovascular auscultation of heart Systolic murmur: midsystolic 04/22/2015 None Full Exam - General 1994 Cardiovascular auscultation of heart Systolic murmur grade: III/ 04/22/2015 None Full Exam - General 1994 Abdomen abdominal exam Overall: no tenderness 04/22/2015 None Full Exam - General 1994 Abdomen abdominal exam Overall: normal bowel sounds 04/22/2015 None Full Exam - General 1994 Lymphatic neck nodes Overall: anterior cervical chain benign 04/22/2015 None Full Exam - General 1994 Lymphatic neck nodes Overall: posterior cervical chain benign 04/22/2015 None Full Exam - General 1994 Integument inspection of skin Overall: few scattered moles, no gross abnormalities 04/22/2015 None Full Exam - General 1994 Neurologic cranial nerves Overall: crainial nerves 2 - 12 grossly intact 04/22/2015 None Full Exam - General 1994 Psychiatric orientation/consciousness Overall: oriented to person, place and time 04/22/2015 None Full Exam - General 1994 Cardiovascular auscultation of heart Rhythm: regular rhythm 04/22/2015 None Full Exam - General 1994 Cardiovascular extremities Edema present: pitting 04/22/2015 None Full Exam - General 1994 Cardiovascular extremities Edema present: severity 1+ - 4 +: 2-3+ 04/22/2015 None Full Exam - General 1994 Constitutional general appearance Overall: well developed 12/12/2014 None Full Exam - General 1994 Constitutional general appearance Overall: in no acute distress 12/12/2014 None Full Exam - General 1994 Constitutional general appearance Overall: well nourished 12/12/2014 None Full Exam - General 1994 Constitutional general appearance Assistive Device: cane 12/12/2014 None Full Exam - General 1994 Eyes conjunctiva /eyelids Overall: conjunctiva clear 12/12/2014 None Full Exam - General 1994 Eyes pupils and irises Overall: pupils equal, round, reactive to light and accomodation 12/12/2014 None Full Exam - General 1994 Ears/Nose/Throat otoscopic exam Overall: external auditory canals clear 12/12/2014 None Full Exam - General 1994 Ears/Nose/Throat oral cavity/pharynx/larynx Overall: oral mucosa clear 12/12/2014 None Full Exam - General 1994 Respiratory auscultation Overall: breath sounds clear bilaterally 12/12/2014 None Full Exam - General 1994 Respiratory respiratory effort/rhythm Overall: no retractions 12/12/2014 None Full Exam - General 1994 Respiratory respiratory effort/rhythm Overall: normal rate 12/12/2014 None Full Exam - General 1994 Cardiovascular extremities Overall: no clubbing 12/12/2014 None Full Exam - General 1994 Cardiovascular auscultation of heart Overall: regular rate 12/12/2014 None Full Exam - General 1994 Cardiovascular auscultation of heart Overall: normal heart sounds 12/12/2014 None Full Exam - General 1994 Cardiovascular auscultation of heart Rate: regular rate 12/12/2014 None Full Exam - General 1994 Cardiovascular auscultation of heart Rhythm: regularly irregular rhythm 12/12/2014 None Full Exam - General 1994 Cardiovascular auscultation of heart Systolic murmur: midsystolic 12/12/2014 None Full Exam - General 1994 Cardiovascular auscultation of heart Systolic murmur grade: III/ 12/12/2014 None Full Exam - General 1994 Abdomen abdominal exam Overall: no tenderness 12/12/2014 None Full Exam - General 1994 Abdomen abdominal exam Overall: normal bowel sounds 12/12/2014 None Full Exam - General 1994 Lymphatic neck nodes Overall: anterior cervical chain benign 12/12/2014 None Full Exam - General 1994 Lymphatic neck nodes Overall: posterior cervical chain benign 12/12/2014 None Full Exam - General 1994 Musculoskeletal lower extremity Inspection - foot: callus 12/12/2014 sole of left foot and base of 5th toe right foot Full Exam - General 1994 Musculoskeletal lower extremity Palpation - foot: a normal exam 12/12/2014 None Full Exam - General 1994 Integument inspection of skin Location: left foot 12/12/2014 None Full Exam - General 1994 Integument inspection of skin Location: right foot 12/12/2014 ulcer with callus on plantar surface fo foot below metatarsal head laterally 5th metatarsal Full Exam - General 1994 Neurologic cranial nerves Overall: crainial nerves 2 - 12 grossly intact 12/12/2014 None Full Exam - General 1994 Psychiatric orientation/consciousness Overall: oriented to person, place and time 12/12/2014 None Full Exam - General 1994 Constitutional general appearance Overall: well developed 11/14/2014 None Full Exam - General 1994 Constitutional general appearance Overall: in no acute distress 11/14/2014 None Full Exam - General 1994 Constitutional general appearance Overall: well nourished 11/14/2014 None Full Exam - General 1994 Constitutional general appearance Assistive Device: cane 11/14/2014 None Full Exam - General 1994 Eyes conjunctiva /eyelids Overall: conjunctiva clear 11/14/2014 None Full Exam - General 1994 Eyes pupils and irises Overall: pupils equal, round, reactive to light and accomodation 11/14/2014 None Full Exam - General 1994 Ears/Nose/Throat otoscopic exam Overall: external auditory canals clear 11/14/2014 None Full Exam - General 1994 Ears/Nose/Throat oral cavity/pharynx/larynx Overall: oral mucosa clear 11/14/2014 None Full Exam - General 1994 Respiratory auscultation Overall: breath sounds clear bilaterally 11/14/2014 None Full Exam - General 1994 Respiratory respiratory effort/rhythm Overall: no retractions 11/14/2014 None Full Exam - General 1994 Respiratory respiratory effort/rhythm Overall: normal rate 11/14/2014 None Full Exam - General 1994 Cardiovascular extremities Overall: no clubbing 11/14/2014 None Full Exam - General 1994 Cardiovascular auscultation of heart Overall: regular rate 11/14/2014 None Full Exam - General 1994 Cardiovascular auscultation of heart Overall: normal heart sounds 11/14/2014 None Full Exam - General 1994 Cardiovascular auscultation of heart Rate: regular rate 11/14/2014 None Full Exam - General 1994 Cardiovascular auscultation of heart Rhythm: regularly irregular rhythm 11/14/2014 None Full Exam - General 1994 Cardiovascular auscultation of heart Systolic murmur: midsystolic 11/14/2014 None Full Exam - General 1994 Cardiovascular auscultation of heart Systolic murmur grade: III/ 11/14/2014 None Full Exam - General 1994 Abdomen abdominal exam Overall: no tenderness 11/14/2014 None Full Exam - General 1994 Abdomen abdominal exam Overall: normal bowel sounds 11/14/2014 None Full Exam - General 1994 Lymphatic neck nodes Overall: anterior cervical chain benign 11/14/2014 None Full Exam - General 1994 Lymphatic neck nodes Overall: posterior cervical chain benign 11/14/2014 None Full Exam - General 1994 Musculoskeletal lower extremity Inspection - foot: callus 11/14/2014 sole of left foot at base of 3rd digit/toe and base of 5th toe right foot Full Exam - General 1994 Musculoskeletal lower extremity Palpation - foot: a normal exam 11/14/2014 None Full Exam - General 1994 Integument inspection of skin Location: left foot 11/14/2014 None Full Exam - General 1994 Integument inspection of skin Location: right foot 11/14/2014 ulcer with callus on plantar surface fo foot below metatarsal head laterally 5th metatarsal Full Exam - General 1994 Neurologic cranial nerves Overall: crainial nerves 2 - 12 grossly intact 11/14/2014 None Full Exam - General 1994 Psychiatric orientation/consciousness Overall: oriented to person, place and time 11/14/2014 None Full Exam - General 1994 Constitutional general appearance Overall: well developed 10/17/2014 None Full Exam - General 1994 Constitutional general appearance Overall: in no acute distress 10/17/2014 None Full Exam - General 1994 Constitutional general appearance Overall: well nourished 10/17/2014 None Full Exam - General 1994 Constitutional general appearance Assistive Device: cane 10/17/2014 None Full Exam - General 1994 Eyes conjunctiva /eyelids Overall: conjunctiva clear 10/17/2014 None Full Exam - General 1994 Eyes pupils and irises Overall: pupils equal, round, reactive to light and accomodation 10/17/2014 None Full Exam - General 1994 Ears/Nose/Throat otoscopic exam Overall: external auditory canals clear 10/17/2014 None Full Exam - General 1994 Ears/Nose/Throat oral cavity/pharynx/larynx Overall: oral mucosa clear 10/17/2014 None Full Exam - General 1994 Respiratory auscultation Overall: breath sounds clear bilaterally 10/17/2014 None Full Exam - General 1994 Respiratory respiratory effort/rhythm Overall: no retractions 10/17/2014 None Full Exam - General 1994 Respiratory respiratory effort/rhythm Overall: normal rate 10/17/2014 None Full Exam - General 1994 Cardiovascular extremities Overall: no clubbing 10/17/2014 None Full Exam - General 1994 Cardiovascular auscultation of heart Overall: regular rate 10/17/2014 None Full Exam - General 1994 Cardiovascular auscultation of heart Overall: normal heart sounds 10/17/2014 None Full Exam - General 1994 Cardiovascular auscultation of heart Rate: regular rate 10/17/2014 None Full Exam - General 1994 Cardiovascular auscultation of heart Rhythm: regularly irregular rhythm 10/17/2014 None Full Exam - General 1994 Cardiovascular auscultation of heart Systolic murmur: midsystolic 10/17/2014 None Full Exam - General 1994 Cardiovascular auscultation of heart Systolic murmur grade: III/ 10/17/2014 None Full Exam - General 1994 Abdomen abdominal exam Overall: no tenderness 10/17/2014 None Full Exam - General 1994 Abdomen abdominal exam Overall: normal bowel sounds 10/17/2014 None Full Exam - General 1994 Lymphatic neck nodes Overall: anterior cervical chain benign 10/17/2014 None Full Exam - General 1994 Lymphatic neck nodes Overall: posterior cervical chain benign 10/17/2014 None Full Exam - General 1994 Musculoskeletal lower extremity Inspection - foot: callus 10/17/2014 sole of left foot and base of 5th toe right foot Full Exam - General 1994 Musculoskeletal lower extremity Palpation - foot: a normal exam 10/17/2014 None Full Exam - General 1994 Neurologic cranial nerves Overall: crainial nerves 2 - 12 grossly intact 10/17/2014 None Full Exam - General 1994 Psychiatric orientation/consciousness Overall: oriented to person, place and time 10/17/2014 None Full Exam - General 1994 Integument inspection of skin Location: left foot 10/17/2014 None Full Exam - General 1994 Integument inspection of skin Location: right foot 10/17/2014 ulcer with callus on plantar surface fo foot below metatarsal head laterally 5th metatarsal Full Exam - General 1994 Constitutional general appearance Overall: well developed 06/06/2014 None Full Exam - General 1994 Constitutional general appearance Overall: in no acute distress 06/06/2014 None Full Exam - General 1994 Constitutional general appearance Overall: well nourished 06/06/2014 None Full Exam - General 1994 Eyes conjunctiva /eyelids Overall: conjunctiva clear 06/06/2014 None Full Exam - General 1994 Eyes pupils and irises Overall: pupils equal, round, reactive to light and accomodation 06/06/2014 None Full Exam - General 1994 Ears/Nose/Throat otoscopic exam Overall: external auditory canals clear 06/06/2014 None Full Exam - General 1994 Ears/Nose/Throat oral cavity/pharynx/larynx Overall: oral mucosa clear 06/06/2014 None Full Exam - General 1994 Respiratory auscultation Overall: breath sounds clear bilaterally 06/06/2014 None Full Exam - General 1994 Respiratory respiratory effort/rhythm Overall: no retractions 06/06/2014 None Full Exam - General 1994 Respiratory respiratory effort/rhythm Overall: normal rate 06/06/2014 None Full Exam - General 1994 Cardiovascular extremities Overall: no clubbing 06/06/2014 None Full Exam - General 1994 Cardiovascular auscultation of heart Overall: regular rate 06/06/2014 None Full Exam - General 1994 Cardiovascular auscultation of heart Overall: normal heart sounds 06/06/2014 None Full Exam - General 1994 Cardiovascular auscultation of heart Rate: regular rate 06/06/2014 None Full Exam - General 1994 Cardiovascular auscultation of heart Rhythm: regularly irregular rhythm 06/06/2014 None Full Exam - General 1994 Cardiovascular auscultation of heart Systolic murmur: midsystolic 06/06/2014 None Full Exam - General 1994 Cardiovascular auscultation of heart Systolic murmur grade: III/ 06/06/2014 None Full Exam - General 1994 Abdomen abdominal exam Overall: no tenderness 06/06/2014 None Full Exam - General 1994 Abdomen abdominal exam Overall: normal bowel sounds 06/06/2014 None Full Exam - General 1994 Lymphatic neck nodes Overall: anterior cervical chain benign 06/06/2014 None Full Exam - General 1994 Lymphatic neck nodes Overall: posterior cervical chain benign 06/06/2014 None Full Exam - General 1994 Musculoskeletal lower extremity Inspection - foot: callus 06/06/2014 sole of left foot and base of 5th toe right foot Full Exam - General 1994 Musculoskeletal lower extremity Palpation - foot: a normal exam 06/06/2014 None Full Exam - General 1994 Integument inspection of skin Overall: few scattered moles, no gross abnormalities 06/06/2014 None Full Exam - General 1994 Neurologic cranial nerves Overall: crainial nerves 2 - 12 grossly intact 06/06/2014 None Full Exam - General 1994 Psychiatric orientation/consciousness Overall: oriented to person, place and time 06/06/2014 None Full Exam - General 1994 Constitutional general appearance Assistive Device: cane 06/06/2014 None Full Exam - General 1994 Constitutional general appearance Overall: well developed 05/17/2014 None Full Exam - General 1994 Constitutional general appearance Overall: in no acute distress 05/17/2014 None Full Exam - General 1994 Constitutional general appearance Overall: well nourished 05/17/2014 None Full Exam - General 1994 Psychiatric orientation/consciousness Overall: oriented to person, place and time 05/17/2014 None Full Exam - General 1994 Neurologic cranial nerves Overall: crainial nerves 2 - 12 grossly intact 05/17/2014 None Full Exam - General 1994 Integument inspection of skin Overall: few scattered moles, no gross abnormalities 05/17/2014 None Full Exam - General 1994 Musculoskeletal lower extremity Inspection - foot: callus 05/17/2014 sole of left foot and base of 5th toe right foot Full Exam - General 1994 Musculoskeletal lower extremity Palpation - foot: a normal exam 05/17/2014 None Full Exam - General 1994 Lymphatic neck nodes Overall: anterior cervical chain benign 05/17/2014 None Full Exam - General 1994 Lymphatic neck nodes Overall: posterior cervical chain benign 05/17/2014 None Full Exam - General 1994 Abdomen abdominal exam Overall: no tenderness 05/17/2014 None Full Exam - General 1994 Abdomen abdominal exam Overall: normal bowel sounds 05/17/2014 None Full Exam - General 1994 Cardiovascular extremities Overall: no clubbing 05/17/2014 None Full Exam - General 1994 Cardiovascular auscultation of heart Overall: regular rate 05/17/2014 None Full Exam - General 1994 Cardiovascular auscultation of heart Overall: normal heart sounds 05/17/2014 None Full Exam - General 1994 Cardiovascular auscultation of heart Systolic murmur grade: III/ 05/17/2014 None Full Exam - General 1994 Cardiovascular auscultation of heart Rate: regular rate 05/17/2014 None Full Exam - General 1994 Cardiovascular auscultation of heart Rhythm: regularly irregular rhythm 05/17/2014 None Full Exam - General 1994 Respiratory auscultation Overall: breath sounds clear bilaterally 05/17/2014 None Full Exam - General 1994 Respiratory respiratory effort/rhythm Overall: no retractions 05/17/2014 None Full Exam - General 1994 Respiratory respiratory effort/rhythm Overall: normal rate 05/17/2014 None Full Exam - General 1994 Ears/Nose/Throat otoscopic exam Overall: external auditory canals clear 05/17/2014 None Full Exam - General 1994 Ears/Nose/Throat oral cavity/pharynx/larynx Overall: oral mucosa clear 05/17/2014 None Full Exam - General 1994 Eyes conjunctiva /eyelids Overall: conjunctiva clear 05/17/2014 None Full Exam - General 1994 Eyes pupils and irises Overall: pupils equal, round, reactive to light and accomodation 05/17/2014 None Full Exam - General 1994 Cardiovascular auscultation of heart Systolic murmur: midsystolic 05/17/2014 None Procedures Procedure Codes Date ADMIN INFLUENZA VIRUS VAC CPT-4: G0008 11/13/2015 FLU VACC 4 KAITLIN 3 YRS PLUS IM SNOMED CT: 25480502 CPT-4: 75142 11/13/2015 URINALYSIS NONAUTO W/O SCOPE CPT-4: 31225 08/22/2015 ADMIN INFLUENZA VIRUS VAC CPT-4: G0008 12/18/2014 FLU VACC PRSV FREE INC ANTIG Formatting Model/CDA Sections, Assigned to/Joceline Ochoa CPT-4: [id number] 12/18/2014 TRIM SKIN LESIONS 2 TO 4 CPT-4: 78923 11/14/2014 ADMIN PNEUMOCOCCAL VACCINE SNOMED CT: 25688920 CPT-4: G0009 11/14/2014 Pneumococcal Polysaccharide Vaccine, 23-Valent, Ad CPT-4: 04225 11/14/2014 TRIM SKIN LESIONS 2 TO 4 CPT-4: 65314 10/17/2014 Vital Signs Date Vital 10/08/2016 Blood Pressure 1: 124/58 Code : 8480-6 Heart Rate 1: 55 bpm Height: 5'10" SpO2: 99% Weight: 07/16/2016 BMI: 24.4 Code: 59352-3 Heart Rate 1: 86 bpm Height: 5'10" SpO2: 98% Weight: 170 lbs 02/26/2016 Blood Pressure 1: 120/60 Code : 8480-6 Heart Rate 1: 66 bpm Height: 5'10" SpO2: 97% Weight: 11/13/2015 Blood Pressure 1: 140/48 Code : 8480-6 Heart Rate 1: 62 bpm Height: SpO2: 98% Weight: 08/22/2015 Blood Pressure 1: 142/82 Code : 8480-6 Heart Rate 1: 72 bpm SpO2: 96% Weight: 192 lbs 07/22/2015 BMI: 26.5 Code: 64483-8 Height: 5'10" Weight: 185 lbs 06/20/2015 Blood Pressure 1: 130/76 Code : 8480-6 BMI: 26.7 Code : 90744-3 Heart Rate 1 : 73 bpm Height: 5'10" SpO2: 97% Weight: 186 lbs 06/04/2015 Blood Pressure 1: 146/54 Code : 8480-6 BMI: 26.4 Code : 70292-9 Heart Rate 1 : 72 bpm Height: 5'10" SpO2: 96% Weight: 184 lbs 04/22/2015 Blood Pressure 1: 146/52 Code : 8480-6 BMI: 27.1 Code : 11353-8 Heart Rate 1 : 80 bpm Height: 5'10" SpO2: 95% Weight: 189 lbs 12/12/2014 Blood Pressure 1: 140/82 Code : 8480-6 BMI: 25.4 Code : 82379-5 Heart Rate 1 : 58 bpm Height: 5'10" SpO2: 94% Weight: 177 lbs 11/14/2014 Blood Pressure 1: 140/70 Code : 8480-6 BMI: 26.0 Code : 07227-1 Heart Rate 1 : 60 bpm Height: 5'10" SpO2: 97% Weight: 181 lbs 10/17/2014 Blood Pressure 1: 130/82 Code : 8480-6 BMI: 25.5 Code : 41476-6 Heart Rate 1 : 74 bpm Height: 5'10" Weight: 178 lbs 06/06/2014 Blood Pressure 1: 140/62 Code : 8480-6 Heart Rate 1: 59 bpm SpO2: 98% Weight: 182 lbs 05/17/2014 Blood Pressure 1: 140/72 Code : 8480-6 BMI: 26.4 Code : 39847-4 Heart Rate 1 : 54 bpm Height: 5'10" SpO2: 97% Weight: 184 lbs Functional Status No Functional Status data History of Present Illness Symptom Name Status Result Effective Date Notes Hospital Follow Up _ Other: seizure 10/08/2016 None Hospital Follow Up Onset of Symptom 1 weeks ago 10/08/2016 None Hospital Follow Up Quality acute illness 10/08/2016 new onset seizures Hospital Follow Up Onset and Resolution stable 10/08/2016 None Hospital Follow Up Significant Medical Conditions _ 10/08/2016 None Hospital Follow Up Unchanged by these Factors activity 10/08/2016 None Hospital Follow Up Pertinent Findings Denies fever 10/08/2016 None Hospital Follow Up Pertinent Findings other neurologic symptoms 10/08/2016 memory loss elbow pain Location on the left 07/16/2016 None elbow pain Quality acute 07/16/2016 None elbow pain Onset of Symptom 3 days ago 07/16/2016 None elbow pain Pertinent Findings Denies bruising 07/16/2016 None elbow pain Pertinent Findings Denies decreased range of motion 07/16/2016 None elbow pain Pertinent Findings Denies locking 07/16/2016 None elbow pain Pertinent Findings warmth 07/16/2016 None elbow pain Pertinent Findings swelling 07/16/2016 None alteration of consciousness Quality acute 02/26/2016 None alteration of consciousness Onset and Resolution ongoing 02/26/2016 None alteration of consciousness Onset of Symptom 2 weeks ago 02/26/2016 None alteration of consciousness Limitation on Activities moderately impairs function 02/26/2016 None alteration of consciousness Frequency of Episodes increasing 02/26/2016 started worsening in the evening 2 weeks ago-increasing and how having increased confusion all day long alteration of consciousness Significant Medical Conditions dementia 02/26/2016 None alteration of consciousness Significant Medical Conditions infection 02/26/2016 UTI in the past alteration of consciousness Triggers no known associated factors 02/26/2016 None alteration of consciousness Pertinent Findings confusion 02/26/2016 None alteration of consciousness Pertinent Findings Denies pre-syncopal sensation 02/26/2016 None alteration of consciousness Pertinent Findings Denies increased respiratory rate 02/26/2016 None abdominal pain Location in the LLQ 11/13/2015 None abdominal pain Radiating the inguinal area 11/13/2015 None abdominal pain Quality intermittent 11/13/2015 None abdominal pain Onset and Resolution ongoing 11/13/2015 None abdominal pain Frequency of Episodes daily 11/13/2015 None abdominal pain Pertinent Findings Denies back pain 11/13/2015 None abdominal pain Pertinent Findings Denies dyspnea 11/13/2015 None memory loss Frequency of Episodes daily 11/13/2015 None abdominal pain Location in the LLQ 08/22/2015 None abdominal pain Radiating the inguinal area 08/22/2015 None abdominal pain Quality intermittent 08/22/2015 None abdominal pain Onset and Resolution ongoing 08/22/2015 None abdominal pain Frequency of Episodes daily 08/22/2015 None abdominal pain Pertinent Findings Denies back pain 08/22/2015 None abdominal pain Pertinent Findings Denies dyspnea 08/22/2015 None sinus congestion Onset and Resolution sudden in onset 07/22/2015 None sinus congestion Onset of Symptom 2 weeks ago 07/22/2015 None sinus congestion Frequency of Episodes daily 07/22/2015 None sinus congestion Timing of Episodes all day long 07/22/2015 None sinus congestion Pertinent Findings cough 07/22/2015 None sinus congestion Pertinent Findings hoarseness 07/22/2015 None sinus congestion Location on both sides 07/22/2015 None sinus congestion Quality fullness 07/22/2015 None sinus congestion Quality constant 07/22/2015 None chest congestion Quality constant 07/22/2015 None chest congestion Onset and Resolution sudden in onset 07/22/2015 None chest congestion Onset of Symptom 2 weeks ago 07/22/2015 None chest congestion Triggers no known associated factors 07/22/2015 None chest congestion Pertinent Findings cough 07/22/2015 None chest congestion Pertinent Findings decreased energy 07/22/2015 None chest congestion Pertinent Findings nasal congestion 07/22/2015 None chest congestion Pertinent Findings sinus congestion 07/22/2015 None chest congestion Pertinent Findings sputum production 07/22/2015 None edema Onset and Resolution ongoing 06/20/2015 None edema Frequency of Episodes daily 06/20/2015 None edema Pertinent Findings Denies back pain 06/20/2015 None edema Pertinent Findings Denies dyspnea 06/20/2015 None edema Pertinent Findings Denies tachycardia 06/20/2015 None eye erythema Location on the left eye 06/20/2015 None eye erythema Quality intermittent 06/20/2015 None eye erythema Onset of Symptom _ days ago 06/20/2015 None eye erythema Frequency of Episodes hourly 06/20/2015 None eye erythema Pertinent Findings Denies eye discharge 06/20/2015 None eye erythema Pertinent Findings Denies eye tearing 06/20/2015 None eye erythema Pertinent Findings Denies fever 06/20/2015 None edema Onset and Resolution gradual in onset 06/04/2015 None edema Onset of Symptom 2 months ago 06/04/2015 None skin lesion Quality soft 06/04/2015 None skin lesion Quality ulcerated 06/04/2015 None skin lesion Location right gluteus 06/04/2015 None skin lesion Onset and Resolution sudden in onset 06/04/2015 None ~generic Quality constant 06/04/2015 None edema Onset and Resolution sudden in onset 04/22/2015 None edema Onset of Symptom 10 days ago 04/22/2015 None edema Location on both legs 04/22/2015 None edema Quality constant 04/22/2015 None edema Pertinent Findings poor feeding 04/22/2015 None cough Location in the lung 04/22/2015 None cough Quality productive 04/22/2015 None cough Onset and Resolution sudden in onset 04/22/2015 None cough Onset of Symptom 10 days ago 04/22/2015 None cough Frequency of Episodes daily 04/22/2015 None cough Significant Medical Conditions cardiac disease 04/22/2015 None cough Triggers no known associated factors 04/22/2015 None cough Pertinent Findings chest discomfort 04/22/2015 None cough Pertinent Findings dyspnea 04/22/2015 None sinus congestion Onset of Symptom 6 months ago 12/12/2014 None sinus congestion Location on both sides 12/12/2014 None sinus congestion Pertinent Findings Denies facial pain 12/12/2014 None sinus congestion Pertinent Findings Denies fever 12/12/2014 None sores in the mouth Pertinent Findings halitosis 12/12/2014 None sores in the mouth Pertinent Findings local tenderness 12/12/2014 None sores in the mouth Pertinent Findings Denies poor eating 12/12/2014 None sores in the mouth Onset of Symptom 6 months ago 12/12/2014 None rash Location-Major on the abdomen 12/12/2014 None rash Color red 2014 None rash Location-Trunk on the upper chest 12/12/2014 None rash Location-Trunk on the mid chest 12/12/2014 None rash Pertinent Findings Denies pain 12/12/2014 None rash Pertinent Findings Denies itching 12/12/2014 None rash Triggers topical applications 12/12/2014 gel used for carotid and ultra sound skin lesion Quality enlarging 12/12/2014 None skin lesion Quality firm 12/12/2014 callus skin lesion Location Right Foot 12/12/2014 and left foot blood pressure followup Quality chronic 12/12/2014 None blood pressure followup Onset and Resolution ongoing 12/12/2014 None blood pressure followup Onset of Symptom during adulthood 12/12/2014 None blood pressure followup Blood Pressure Values not checking blood pressure at home 12/12/2014 None blood pressure followup Frequency of Episodes unchanged 12/12/2014 None blood pressure followup Triggers stress 12/12/2014 None blood pressure followup Alleviating Factors medication 12/12/2014 None skin lesion Quality enlarging 11/14/2014 None skin lesion Quality firm 11/14/2014 callus skin lesion Location Right Foot 11/14/2014 and left foot blood pressure followup Quality chronic 11/14/2014 None blood pressure followup Onset and Resolution ongoing 11/14/2014 None blood pressure followup Onset of Symptom during adulthood 11/14/2014 None blood pressure followup Blood Pressure Values not checking blood pressure at home 11/14/2014 None blood pressure followup Frequency of Episodes unchanged 11/14/2014 None blood pressure followup Triggers stress 11/14/2014 None blood pressure followup Alleviating Factors medication 11/14/2014 None skin lesion Quality firm 10/17/2014 callus skin lesion Location Right Foot 10/17/2014 and left foot skin lesion Quality enlarging 10/17/2014 None blood pressure followup Alleviating Factors medication 10/17/2014 None blood pressure followup Blood Pressure Values not checking blood pressure at home 10/17/2014 None blood pressure followup Frequency of Episodes unchanged 10/17/2014 None blood pressure followup Onset and Resolution ongoing 10/17/2014 None blood pressure followup Onset of Symptom during adulthood 10/17/2014 None blood pressure followup Quality chronic 10/17/2014 None blood pressure followup Triggers stress 10/17/2014 None sinus congestion Onset and Resolution ongoing 06/06/2014 None sinus congestion Severity mild 06/06/2014 None sinus congestion Frequency of Episodes daily 06/06/2014 None sinus congestion Length of Episodes _ months 06/06/2014 None sinus congestion Significant Medical Conditions allergic rhinitis 06/06/2014 None sinus congestion Triggers allergens 06/06/2014 None sinus congestion Exacerbating Factors allergen exposure 06/06/2014 None sinus congestion Pertinent Findings Denies cough 06/06/2014 None sinus congestion Pertinent Findings Denies decreased energy level 06/06/2014 None sinus congestion Pertinent Findings Denies facial pain 06/06/2014 None sinus congestion Pertinent Findings Denies fever 06/06/2014 None sinus congestion Location on both sides 06/06/2014 None sinus congestion Quality chronic 06/06/2014 None hip pain Location on the right 06/06/2014 None hip pain Onset and Resolution ongoing 06/06/2014 None hip pain Frequency of Episodes daily 06/06/2014 None hip pain Pertinent Findings limping 06/06/2014 uses a cane/walker hip pain Pertinent Findings Denies pain with movement 06/06/2014 None hip pain Pertinent Findings Denies sensation of buckling 06/06/2014 None ~generic Onset of Symptom _ years ago 06/06/2014 worsening dry mouth- using Biotene doesnt help- reports brushes teeth and spit is pink callus Location on the left foot 06/06/2014 None callus Onset of Symptom _ months ago 06/06/2014 trying to file it and using pads on it- walking and pressure hurts callus Pertinent Findings pain with activity 06/06/2014 None callus Pertinent Findings pain with walking 06/06/2014 None hip pain Limitation on Activities allows ambulation 06/06/2014 None callus Quality chronic 06/06/2014 None callus Onset and Resolution ongoing 06/06/2014 None sinus congestion Onset and Resolution ongoing 05/17/2014 None sinus congestion Frequency of Episodes daily 05/17/2014 None sinus congestion Length of Episodes _ months 05/17/2014 None sinus congestion Pertinent Findings Denies fever 05/17/2014 None hip pain Location on the right 05/17/2014 None hip pain Onset and Resolution ongoing 05/17/2014 None hip pain Frequency of Episodes daily 05/17/2014 None hip pain Pertinent Findings limping 05/17/2014 uses a cane/walker hip pain Pertinent Findings Denies sensation of buckling 05/17/2014 None hip pain Pertinent Findings Denies pain with movement 05/17/2014 None hypertension Quality intermittent 05/17/2014 None hypertension Onset and Resolution ongoing 05/17/2014 None hypertension Blood Pressure Values patient checking blood pressure at home - did not bring in readings 05/17/2014 None hypertension Frequency of Episodes daily 05/17/2014 None hypertension Pertinent Findings Denies dyspnea 05/17/2014 None hypertension Pertinent Findings Denies edema 05/17/2014 None sinus congestion Severity mild 05/17/2014 None sinus congestion Significant Medical Conditions allergic rhinitis 05/17/2014 None sinus congestion Triggers allergens 05/17/2014 None sinus congestion Pertinent Findings Denies decreased energy level 05/17/2014 None sinus congestion Pertinent Findings Denies cough 05/17/2014 None sinus congestion Pertinent Findings Denies facial pain 05/17/2014 None sinus congestion Exacerbating Factors allergen exposure 05/17/2014 None sinus congestion Location on both sides 05/17/2014 None sinus congestion Quality chronic 05/17/2014 None hypertension Significant Family History heart disease 05/17/2014 None hypertension Triggers no known associated factors 05/17/2014 None hypertension Alleviating Factors medication 05/17/2014 None Advance Directives No Advance Directive data Encounters Encounter Performer Location Codes [id number]) [id number] EST. 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 PATIENT, LEVEL IV Diagnosis: Pain in right hip[ICD10: M25.551] Diagnosis: Disorientation, unspecified[ICD10: R41.0] Diagnosis: Essential (primary) hypertension[ICD10: I10] Diagnosis: Other microscopic hematuria[ICD10: R31.29] Diagnosis: Mastodynia[ICD10: N64.4] Diagnosis: Hypoxemia[ICD10: R09.02] Violet Quinonez MD, [facility] CPT-4: 27598 02/26/2016 87819 EST. PATIENT, LEVEL IV Diagnosis: Mild cognitive impairment, so stated[ICD10: G31.84] Diagnosis: Localized edema[ICD10: R60.0] Diagnosis: Encounter for immunization[ICD10: Z23] Gela Quinonez MD, [facility] CPT-4: 29474 11/13/2015 ([id number]) 57951 EST. PATIENT, LEVEL IV Diagnosis: Urinary tract infection, site not specified[ICD10: N39.0] Diagnosis: Essential (primary) hypertension[ICD10: I10] Diagnosis: Other intra-abdominal and pelvic swelling, mass and lump[ICD10: R19.09] Diagnosis: Contusion of abdominal wall, sequela[ICD10: S30.1XXS] Frannie Quinonez MD, [facility] CPT-4: 90539 08/22/2015 19774 EST. PATIENT, LEVEL IV Diagnosis: Dysuria[ICD10: R30.0] Diagnosis: Anemia, unspecified[ICD10: D64.9] Gela Quinonez MD, [facility] CPT -4: 58651 07/22/2015 ([id number]) 17686 EST. 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 PATIENT, LEVEL IV Diagnosis: Localized edema[ICD10: R60.0] Diagnosis: Pressure ulcer of left buttock, stage 2[ICD10: L89.322] Diagnosis: Essential (primary) hypertension[ICD10: I10] SIOMARA Shukla MD CPT-4: 05428 06/04/2015 ([id number]) 10429 EST. PATIENT, LEVEL IV Diagnosis: Localized edema[ICD10: R60.0] Diagnosis: Shortness of breath[ICD10: R06.02] Diagnosis: Other intra-abdominal and pelvic swelling, mass and lump[ICD10: R19.09] Diagnosis: Nonrheumatic aortic (valve) stenosis[ICD10: I35.0] Diagnosis: Paroxysmal atrial fibrillation[ICD10: I48.0] Violet Quinonez MD [facility] CPT-4: 72481 04/22/2015 ([id number]) 65686 EST. 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 PATIENT, LEVEL III Diagnosis: ESSENTIAL HYPERTENSION[ICD9: 401.9] Diagnosis: Callus of foot[ICD9: 700] Diagnosis: Callous ulcer[ICD9: 707.8] [facility] CPT- 4: 24963 10/17/2014 ([id number]) 37070 EST. PATIENT, LEVEL IV Diagnosis: ALLERGIC RHINITIS[ICD9: 477.9] Diagnosis: Callus of foot[ICD9: 700] Diagnosis: Iron deficiency anemia[ICD9: 280.9] [facility] CPT-4: 06672 06/06/2014 ([id number]) OFFICE VISIT, NEW - LEVEL 3 Diagnosis: ESSENTIAL HYPERTENSION[ICD9: 401.9] Diagnosis: Osteoarthritis[ICD9: 715.90] Diagnosis: Right hip pain[ICD9: 719.45] Diagnosis: A-fib[ICD9: 427.31] Diagnosis: ALLERGIC RHINITIS[ICD9: 477.9] Diagnosis: Iron deficiency anemia[ICD9: 280.9] [facility] CPT-4: 12859 05/17/2014 Plan of Care Planned Activity Notes Codes Status Date Referral: [facility] Referral Completed 01/03/2017 Appointment: Frannie Portillo WPtel: [facility] [phone] [place] (30 min) Complex 10/08/2016 Patient Education: Patient Medication Summary Completed 10/08/2016 Patient Education: Hypertension Completed 10/08/2016 Care Plan: Referral Order SNOMED-CT : [id number] Pending 10/08/2016 Appointment: Gela Siu WPtel: [facility] [place] [place] ([facility] [place] Complex 07/16/2016 Patient Education: Patient Medication Summary Completed 07/16/2016 Patient Education: Patient Medication Summary Completed 02/26/2016 App[facility]ment: [facility]ela Siu [facility]el[phone] [facility] [place] (15 min) Moderate 11/13/2015 Patient Education: Patient Medication Summary Completed 11/13/2015 Appointment: Gela Siu WPtel: [facility] [place] [place] (30 min) Complex 09/04/2015 Appointment: Frannie Portillo [facility]el[facility] [facility] [place] (30 min) Complex 08/22/2015 Patient Education: Patient Medication Summary Completed 08/22/2015 Appointment: Fr[facility] Portillo [facility]el[facility] [facility] [place] (15 min) Moderate 07/22/2015 Patient Education: Patient Medication Summary Completed 07/22/2015 Patient Education: Patient Medication Summary Completed 06/20/2015 Appointment: Frannie Portillo [facility]el[facility] [facility] [place] (15 min) Moderate 06/04/2015 Patient Education: Patient Medication Summary Completed 06/04/2015 Patient Education: Hypertension Completed 06/04/2015 Appointment: Violet Quinonez WPtel: [facility] [place] (15 min) Moderate 05/12/2015 Appointment: (30 min) Complex 04/22/2015 Patient Education: Patient Medication Summary Completed 04/22/2015 Appointment: Injection 12/18/2014 Patient Education: Patient Medication Summary Completed 12/18/2014 Appointment: Violet Quinonez WPtel: [facility] [place] (15 min) Moderate 12/12/2014 Patient Education: Patient Medication Summary Completed 12/12/2014 Appointment: Violet Quinonez WPtel: [facility] [place] (30 min) Complex 11/14/2014 Patient Education: Patient Medication Summary Completed 11/14/2014 Patient Education: Hypertension Completed 11/14/2014 Appointment: Violet Quinonez WPtel: [facility] [place] [place] (30 min) Complex 10/17/2014 Patient Education: Patient Medication Summary Completed 10/17/2014 Patient Education: Hypertension Completed 10/17/2014 Appointment: Follow up 06/20/2014 Patient Education: Patient Medication Summary Completed 06/06/2014 Care Plan: COMPLETE CBC AUTOMATED LOINC : 47770-3 Ordered 06/06/2014 Patient Education: Patient Medication Summary Completed 05/17/2014 Patient Education: Hypertension Completed 05/17/2014 Referral: [facility] Referral Appointment Requested Instructions No Instructions
--- OUTSIDE RECORDS SUMMARY | 2017-05-24 17:03 | XMS REPORT ---
Author Author [facility] [place] [facility] Medical Staff Organization [facility] Address [address] [place], [place] [address] Phone [phone] Summary purpose TRANSITION OF CARE AUTO GENERATION Chief Complaint and Reason for Visit No authorized Reason for Visit (Admitting Diagnosis) is available for this visit. Problem list No authorized problems tracked for continuity of care are available for this visit. Encounters No authorized problems tracked for encounter diagnoses are available for this visit. Medications No medications recorded for this patient visit Allergies, adverse reactions, alerts No allergy information is available for this patient. Immunizations No immunizations recorded for this patient visit Relevant diagnostic tests and/or laboratory data No authorized results are available for this patient visit History of procedures No procedures recorded for this patient visit. Functional status No functional or cognitive status observations are available for this visit. Vital signs No authorized vital signs are available for this visit. Social history No Social History or smoking status observations were recorded for this visit. ( Unknown if ever smoked.) Treatment Plan No treatment plan text is available for this visit. Hospital discharge instructions No discharge instruction text is available for this visit.
--- OUTSIDE RECORDS SUMMARY | 2017-05-24 17:03 | XMS REPORT ---
Author Author [facility] Medical Staff Organization [facility] Address [address], [place] [address] Phone [phone] Summary purpose TRANSITION OF CARE AUTO GENERATION [...] visit Relevant diagnostic tests and/or laboratory data RESULTS Chemistry [id number]:20:00 Result Normal Range Units Sodium 143 134-145 mEq/l Potassium 4.7 3.5-5.1 mEq/l Chloride 106 98-107 mEq/l CO2 H 33.6 22-28 mEq/l Glucose H 123 70-105 mg/dl BUN H 26 7-18 mg/dl Creatinine H 1.60 0.6-1.3 mg/dl Calcium L 8.2 8.4-10.2 mg/dl TP - Total Protein 7.9 6.0-8.3 g/dl Albumin L 2.8 3.5-5 g/dl Bilirubin - Total 0.5 0.1-1.0 mg/dl AST 41 10-42 IU/L ALT 44 12-65 IU/L ALP 59 39-107 IU/L Osmolality 291.1 280-300 mOsm/L Albumin/Globulin Ratio 0.5 0-8 Anion GAP L 3.4 8-16 BUN/Creatinine Ratio 16.2 10-20 BNP- Brain Natriuretic Peptide H 7940 0-900 pg/ml Estimated GFR L 42 >=60 mL/min/1.7 Hematology :20:00 Result Normal Range Units WBC L 4.7 4.8-10.8 103/uL RBC L 2.8 4.7-6.1 106/uL HGB L 8.9 13.0-18.0 g/dl HCT L 28.0 41.9-52.0 % MCV H 100.7 80-94 FL MCH H 32.0 27-31 pg MCHC L 31.8 33-37 g/dl RDW 15.4 11.5-15.5 % PLT L 118 130-400 103/uL MPV 10.2 7.3-10.4 FL Cardiac [id number]:20:00 Result Normal Range Units CK L 27 39-308 IU/L CKMB 0.8 0-3.6 ng/ml Patient samples may contain heterophilic antibodies that could react with immunoassays to give falsely elevated or depressed results. This Dimension assay has been designed to minimize interference from heterophilic antibodies. Nevertheless, complete elimination of this interference from all patient specimens cannot be guaranteed. A test result that is inconsistent with the clinical picture and patient history should be interpreted with caution. Troponin I 0.03 0.0-0.4 ng/ml Patient samples may contain heterophilic antibodies that could react in immunoassays to give falsely elevated or depressed results. This Dimension assay has been designed to minimize interference from heterophilic antibodies. Nevertheless, complete elimination of this interference from all patient specimens cannot be guaranteed. A test result that is inconsistent with the clinical picture and patient history should be interpreted with caution. Radiology Results [id number]:00 Chest XRay - Port - 1 View PACs Image DATE OF EXAM: Sep 03 2015 RAD 0292-[id number] 1 VIEW PORT : RADIOLOGY REPORT DATE OF SERVICE: 09/03/15 HISTORY: Shortness of breath PORTABLE AP CHEST 2330 HOURS There is enlargement of the cardiac silhouette with suggestion of a water bottle configuration. There are bilateral pleural effusions. Atelectatic changes are present in the left lower lobe. Pulmonary vascular pattern is relatively normal. There is no interstitial thickening. IMPRESSION: Significant enlargement of the heart. Configuration suggests cardiomyopathy or pericardial effusion. Bilateral pleural effusions also present. Left lower lobe atelectasis. Thanh Dudley MD Licha/ne09/04/2015 08:32:00 / 09/04/2015 08:49:36 cc: This document has been electronically Signed by: On: DATE OF EXAM: Sep 03 2015 RAD 0292-CHEST 1 VIEW PORT : RADIOLOGY REPORT DATE OF SERVICE: 09/03/15 HISTORY: Shortness of breath PORTABLE AP CHEST 2330 HOURS There is enlargement of the cardiac silhouette with suggestion of a water bottle configuration. There are bilateral pleural effusions. Atelectatic changes are present in the left lower lobe. Pulmonary vascular pattern is relatively normal. There is no interstitial thickening. IMPRESSION: Significant enlargement of the heart. Configuration suggests cardiomyopathy or pericardial effusion. Bilateral pleural effusions also present. Left lower lobe atelectasis. Thanh Dudley MD Licha/ne09/04/2015 08:32:00 / 09/04/2015 08:49:36 cc: This document has been electronically Signed by: THANH DUDLEY MD On: Sep 04 2015 11:42A Result Amended on 2015-09-04 at 11:42:40. Previous status was SD. [id number]:20:00 Result Normal Range Units MPV 10.2 7.3-10.4 FL History of procedures Procedure Code Code Type Description Date Performed Performing Physician 10268 CPT-4 COMPLETE CBC, AUTOMATED 09-03-2015 MONIQUE ZABALA 13608 CPT-4 COMPREHEN METABOLIC PANEL 09-03-2015 MONIQUE ZABALA 49175 CPT-4 ASSAY OF CK (CPK) 09-03-2015 MONIQUE ZABALA 85441 CPT-4 ASSAY OF TROPONIN, QUANT 09-03-2015 MONIQUE ZABALA 10681 CPT-4 CREATINE, MB FRACTION 09-03-2015 MONIQUE ZABALA 24631 CPT-4 CHEST X-RAY 09-03-2015 MONIQUE ZABALA 71408 CPT-4 NATRIURETIC PEPTIDE 09-03-2015 MONIQUE ZABALA 97761 CPT-4 ROUTINE VENIPUNCTURE 09-03-2015 MONIQUE ZABALA 60700 CPT-4 ELECTROCARDIOGRAM, TRACING 09-03-2015 MONIQUE ZABALA J1650 CPT-4 INJ ENOXAPARIN SODIUM 09-04-2015 MONIQUE ZABALA 01968 CPT-4 ELECTROCARDIOGRAM REPORT 09-03-2015 MONIQUE ZABALA 72552 CPT-4 EMERGENCY DEPT VISIT 09-03-2015 MONIQUE ZABALA 84470 CPT-4 EMERGENCY DEPT VISIT 09-03-2015 MONIQUE ZABALA 64576 CPT-4 THER/PROPH/DIAG INJ, SC/IM 09-03-2015 MONIQUE ZABALA Functional status Functional Status Finding Observation Time Diet regular :35 Abdomen Appearance round :35 Abdomen non-tender : Bowel Sounds present : Urination normal : Quality sym/unlabored : Cough absent : Secretions no : Breath Sounds RUL clear : Breath Sounds RML clear : Breath Sounds RLL crackles :35 Breath Sounds JAIME clear : Breath Sounds LLL crackles :35 Airway natural :35 Oxygen yes : Oxygen Mask Type nasal cannula : Oxygen Flow Rate 2 : Temp >100.4 no : Temp <96.8 no : Chills with rigors no : HR > 90bpm no :35 Respirations > 20 no : Systolic <90 no : headache stiff neck no :35 IV Site Location R AC :35 IV Type peripheral :35 IV Site Information existing :35 IV Site Sebastian 20 :35 IV Site Appearance WNL :35 IV Site Color clear :35 IV Site Patent yes :35 Dressing Type occlusive :35 Nursing Note Wheeled to exit in stable condition escorted by [facility] to transfer to [facility]. :20 Vital signs Type Value Date Respiration Rate 18breaths per minute :20 Pulse 75beats per minute : Oxygen Saturation 100% :20 BP Systolic 159mmHg :20 BP Diastolic 72mmHg :20 Temperature 97.7F 54-66-343939:20 Social history Type Value Smoking Status NEVER SMOKER Treatment Plan No treatment plan text is available for this visit. Hospital discharge instructions Dismissal Condition good Disposition on DC home DC Inst/Educ Give yes Med/Side Effects Rev yes PNE Vac 2015 Flu Vac 2015 Tetanus Vac current
--- OUTSIDE RECORDS SUMMARY | 2017-05-24 17:03 | XMS REPORT ---
Author Author [facility] Medical Staff Organization [facility] Address [address], [place] [address] Phone [phone] Summary purpose TRANSITION OF CARE AUTO GENERATION [...] diagnostic tests and/or laboratory data RESULTS Chemistry [id number]:20:00 Result Normal Range Units Sodium 143 134-145 [...] 130-400 103/uL MPV 10.2 7.3-10.4 FL Cardiac [id number]:20:00 Result Normal Range Units CK L 27 [...] should be interpreted with caution. Radiology Results [id number]:00 Chest XRay - Port - 1 View [...] Left lower lobe atelectasis. Thanh Dudley MD Licha/ma09/04/2015 08:32:00 / 09/04/2015 08:49:36 cc: This document [...] effusions also present. Left lower lobe atelectasis. MD CHARLIE Gonzalez/ma09/04/2015 08:32:00 / 09/04/2015 08:49:36 cc: This document has been electronically Signed by: THANH DUDLEY MD On: Sep 04 2015 11:42A Result Amended on 2015-09-04 at 11:42:40. Previous status was [place]. [id number]:20:00 Result Normal Range Units MPV 10.2 7.3-10.4 FL History of procedures No procedures recorded for this patient visit. Functional status Functional Status Finding Observation Time Diet regular :35 Abdomen Appearance round 83-99-662447:35 Abdomen non-tender 01-21-626209:35 Bowel Sounds present :35 Urination normal :35 Quality sym/unlabored :35 Cough absent :35 Secretions no :35 Breath Sounds RUL clear :35 Breath Sounds RML clear :35 Breath Sounds RLL crackles :35 Breath Sounds JAIME clear :35 Breath Sounds LLL crackles :35 Airway natural :35 Oxygen yes [id number]:20 Oxygen Mask Type nasal cannula :20 Oxygen Flow Rate 2 97-42-607119:20 Temp >100.4 no : Temp <96.8 no :35 Chills with rigors no :35 HR > 90bpm no :35 Respirations > 20 no :35 Systolic <90 no :35 headache stiff neck no :35 IV Site Location R AC :35 IV Type peripheral :35 IV Site Information existing :35 IV Site Sebastian 20 :35 IV Site Appearance WNL :35 IV Site Color clear :35 IV Site Patent yes :35 Dressing Type occlusive :35 Nursing Note Wheeled to exit in stable condition escorted by [facility] :20 Vital signs Type Value Date Respiration Rate 18breaths per minute :20 Pulse 75beats per minute :20 Oxygen Saturation 100% :20 BP Systolic 159mmHg :20 BP Diastolic 72mmHg 09-57-596830:20 Temperature 97.7F 58-13-112527:20 Social history Type Value Smoking Status NEVER SMOKER Treatment Plan No treatment plan text is available for this visit. Hospital discharge instructions Dismissal Condition good Disposition on DC home DC Inst/Educ Give yes Med/Side Effects Rev yes PNE Vac 2015 Flu Vac 2015 Tetanus Vac current
--- OUTSIDE RECORDS SUMMARY | 2017-05-24 17:03 | XMS REPORT ---
Author Author [employer] [facility] [employer] [facility] Medical Staff Organization [facility] Address [address], [place] [address] Phone [phone] Summary purpose TRANSITION OF CARE AUTO GENERATION [...]
--- OUTSIDE RECORDS SUMMARY | 2017-05-24 17:06 | XMS REPORT | CCD ---
Author Author [facility] Address [address] [place] [address] Phone Care Team Providers Care Manager Urology Name Role Phone PP Unavailable CCM Unavailable Summary Purpose Interface Exchange Insurance Providers Payer name Policy type / Coverage type Covered democrat ID Effective Begin Date Effective End Date WPS Medicare Part B Medicare Part B [id number] Unknown Unknown [facility] Medicare Part B [id number] Unknown Unknown Family history Son Diagnosis Age At Onset Depression Unknown Sister Diagnosis Age At Onset Cancer Unknown Brother Diagnosis Age At Onset Coronary Artery Disease Unknown Hypertension Unknown Father Diagnosis Age At Onset Alcoholism Unknown Social History Social History Element Codes Description Effective Dates Marital status Unknown 05/17/2014 Employment Unknown Retired 05/17/[address]: 416497776 Never smoker 05/17/[address]: 474301215 Never drinks alcohol 05/17/2014 Allergies, Adverse Reactions, [...] Start Date Stop Date Status Fill Instructions hydrocodone 10 mg-acetaminophen 325 mg tablet RxNorm: 794721 1 Tablet(s) PO qid prn 03/01/2017 03/30/2017 Active Lipitor 40 mg tablet RxNorm: 647531 TAKE 1 TAB BY MOUTH DAILY. 02/25/2017 No Stop Date Active Remeron 15 mg tablet RxNorm: 473852 1/2 TABLET(S) PO QHS FOR 1 WEEK THEN DOSE MAY BE INCREASED TO 1 TAB AFTER THAT IF NEEDED 01/28/2017 01/22/2018 Active cetirizine 10 mg tablet RxNorm: 4091196 1 TABLET(S) PO DAILY 04/21/2017 Active hydrocodone 10 mg-acetaminophen 325 mg tablet RxNorm: 925258 1 Tablet(s) PO qid prn 12/23/2016 01/21/2017 Inactive Lexapro 10 mg tablet RxNorm: 740882 1 TABLET(S) PO QHS 1 TABLET(S) PO QHS 12/09/2016 11/03/2017 Active Keppra 500 mg tablet RxNorm: 604419 TAKE 1 TABLET BY MOUTH EVERY DAY 10/28/2016 2017 Inactive Patient requests 90 days supply hydrocodone 10 mg-acetaminophen 325 mg tablet RxNorm: 061890 1 Tablet(s) PO qid prn 10/08/2016 11/06/2016 Inactive colchicine 0.6 mg tablet RxNorm: 936562 1 Tablet(s) PO daily 03/26/2017 Active colchicine 0.6 mg tablet RxNorm: 731301 1 Tablet(s) PO daily 09/27/2016 Inactive cetirizine 10 mg tablet RxNorm: 4066709 1 TABLET(S) PO DAILY 12/22/2016 Inactive Remeron 15 mg tablet RxNorm: 001349 1/2 TABLET(S) PO QHS FOR 1 WEEK THEN DOSE MAY BE INCREASED TO 1 TAB AFTER THAT IF NEEDED 08/23/2016 01/27/2017 Inactive hydrocodone 10 mg-acetaminophen 325 mg tablet RxNorm: 138070 1 Tablet(s) PO qid prn 07/28/2016 08/26/2016 Inactive Remeron 15 mg tablet RxNorm: 154144 1/2 Tablet(s) PO QHS for 1 week then dose may be increased to 1 tab after that if needed 07/02/2016 07/01/2016 Inactive Remeron 15 mg tablet RxNorm: 192954 1/2 Tablet(s) PO QHS for 1 week then dose may be increased to 1 tab after that if needed 07/02/2016 08/22/2016 Inactive Flomax 0.4 mg capsule RxNorm: 862030 TAKE 1 CAPSULE BY MOUTH EVERY DAY AFTER BREAKFAST 06/28/2016 03/24/2017 Active hydrocodone 10 mg-acetaminophen 325 mg tablet RxNorm: 699273 1 Tablet(s) PO qid prn 05/27/2016 06/25/2016 Inactive gentamicin 0.3 % eye drops RxNorm: 942154 2 Drop(s) OPH TID 07/201605/19/2016 Inactive gentamicin 0.3 % eye drops RxNorm: 718487 2 Drop(s) OPH TID 07/201605/12/2016 Inactive cetirizine 10 mg tablet RxNorm: 6158516 1 TABLET(S) PO DAILY 08/29/2016 Inactive Flomax 0.4 mg capsule RxNorm: 302008 TAKE 1 CAPSULE BY MOUTH EVERY DAY AFTER BREAKFAST 04/01/2016 06/27/2016 Inactive hydrocodone 10 mg-acetaminophen 325 mg tablet RxNorm: 016923 1 Tablet(s) PO qid prn 03/22/2016 04/20/2016 Inactive Xanax 0.25 mg tablet RxNorm: 882361 1 Tablet(s) PO BID and 1 tab po q 6 hours as needed 03/15/2016 05/19/2016 Inactive trimethoprim 100 mg tablet RxNorm: 942752 1 Tablet(s) PO daily 02/26/2016 07/15/2016 Inactive Levaquin 500 mg tablet RxNorm: 002941 1/2 Tablet(s) PO daily 07/15/2016 Inactive 1 tab today then 1/2 tab daily x 6 days, disregard order for 1 tab daily x 7 days Levaquin 500 mg tablet RxNorm: 650798 1 Tablet(s) PO daily 03/03/2016 Inactive Depakote 250 mg tablet,delayed release RxNorm: 3887883 1 Tablet(s) PO BID 02/23/2016 03/18/2016 Inactive Depakote 250 mg tablet,delayed release RxNorm: 4155477 1 Tablet(s) PO BID 02/23/2016 02/22/2016 Inactive cetirizine 10 mg tablet RxNorm: 4997762 1 TABLET(S) PO DAILY 05/05/2016 Inactive hydrocodone 10 mg-acetaminophen 325 mg tablet RxNorm: 705951 1/2 Tablet(s) PO qid prn 01/12/2016 01/11/2016 Inactive hydrocodone 10 mg-acetaminophen 325 mg tablet RxNorm: 379919 1 Tablet(s) PO qid prn 01/12/2016 03/21/2016 Inactive Levaquin 500 mg tablet RxNorm: 681856 1 Tablet(s) PO daily 09/201512/15/2015 Inactive Levaquin 500 mg tablet RxNorm: 951145 1 Tablet(s) PO daily 09/201512/22/2015 Inactive Namenda XR 28 mg capsule sprinkle,extended release RxNorm: 329039 1 CAPSULE(S) PO DAILY 12/15/2015 03/13/2016 Inactive hydrocodone 10 mg-acetaminophen 325 mg tablet RxNorm: 809587 1/2 Tablet(s) PO qid prn 12/12/2015 01/11/2016 Inactive Lexapro 10 mg tablet RxNorm: 378752 1 Tablet(s) PO QHS 1 TABLET(S) PO QHS 12/12/2015 12/05/2016 Inactive Keflex 500 mg capsule RxNorm: 980697 1 Capsule(s) PO BID 201512/15/2015 Inactive cetirizine 10 mg tablet RxNorm: 0796627 1 TABLET(S) PO DAILY 01/05/2016 Inactive cetirizine 10 mg tablet RxNorm: 4761960 1 Tablet(s) PO daily 12/06/2015 Inactive Namenda XR 28 mg capsule sprinkle,extended release RxNorm: 268362 1 Capsule(s) PO daily 11/13/2015 12/12/2015 Inactive Xanax 0.25 mg tablet RxNorm: 600753 1 Tablet(s) PO BID and 1 tab po q 6 hours as needed 09/19/2015 12/13/2015 Inactive Keflex 500 mg capsule RxNorm: 335517 1 Capsule(s) PO BID 201508/28/2015 Inactive Lexapro 5 mg tablet RxNorm: 813176 1 TABLET(S) PO QHS 201512/11/2015 Inactive Bactrim DS 800 mg-160 mg tablet RxNorm: 934414 1 Tablet(s) PO BID 07/22/2015 07/28/2015 Inactive Lasix 40 mg tablet RxNorm: 613297 2.5 TABLET(S) PO DAILY 11/12/2015 Inactive 1 1/2 in the morning and 1 at 3 PMPatient requests 90 days supply Xanax 0.25 mg tablet RxNorm: 337809 1 Tablet(s) PO BID and 1 tab po q 6 hours as needed 07/08/2015 09/18/2015 Inactive Lasix 40 mg tablet RxNorm: 204541 2.5 TABLET(S) PO DAILY 07/17/2015 Inactive 1 1/2 in the morning and 1 at 3 PM potassium chloride ER 20 mEq tablet,extended release RxNorm: 393491 2 Tablet(s) PO BID 07/03/2015 07/15/2016 Inactive Lasix 40 mg tablet RxNorm: 2.5 Tablet(s) PO daily 07/01/2015 Inactive 1 1/2 in the morning and 1 at 3 PM Lexapro 5 mg tablet RxNorm: 692238 1 Tablet(s) PO QHS 201508/10/2015 Inactive Lexapro 5 mg tablet RxNorm: 113069 1 Tablet(s) PO QHS 201504/22/2015 Inactive Xanax 0.25 mg tablet RxNorm: 085371 1 Tablet(s) PO BID and 1 tab po q 6 hours 04/23/2015 09/18/2015 Inactive Lasix 40 mg tablet RxNorm: 1 Tablet(s) PO daily 201506/03/2015 Inactive TAKE TWICE DAILY X 2 DAYS THEN DAILY THEREAFTER Lasix 40 mg tablet RxNorm: 1 Tablet(s) PO daily 201504/21/2015 Inactive TAKE TWICE DAILY X 2 DAYS THEN DAILY THEREAFTER Norvasc 5 mg tablet RxNorm: 216941 1 Tablet(s) PO daily 201404/21/2015 Inactive nystatin 100,000 unit/mL oral suspension RxNorm: 136304 5 Milliliter(s) PO QID 10/17/2014 10/26/2014 Inactive hydrocodone 10 mg-acetaminophen 325 mg tablet RxNorm: 542538 1/2 Tablet(s) PO qid prn 09/17/2014 12/11/2015 Inactive Flonase Allergy Relief 50 mcg/actuation nasal spray, suspension RxNorm: 2 [place] NASAL daily 06/06/2014 07/05/2014 Inactive triamterene 75 mg-hydrochlorothiazide 50 mg tablet RxNorm: 739020 1/2 Tablet(s) PO daily 05/17/2014 06/15/2014 Inactive Lasix 20 mg tablet RxNorm: 763313 Tablet(s) PO alternate 40mg and 20mg every other day - per [facility] No Start Date Active senna 8.6 mg tablet RxNorm: 668642 2 Tablet(s) PO BID No Start Date Active Citracal + D3 (calcium phosphate) oral RxNorm: 1895 oral No Start Date Active Lasix 40 mg tablet RxNorm: 1 Tablet(s) PO BID No Start Date Active Multiple Vitamins with Iron chewable tablet RxNorm: 1 Tablet(s) PO daily flinstone vitamin No Start Date Active melatonin 10 mg tablet RxNorm: 9501546 1 Tablet(s) PO daily No Start Date Active aspirin 81 mg capsule,delayed release RxNorm: 361072 1 Capsule(s) PO daily No Start Date Active spironolactone 25 mg tablet RxNorm: 952895 1 Tablet(s) PO daily No Start Date Active red yeast rice 600 mg tablet RxNorm: 419793 1 Tablet(s) PO daily No Start Date 04/21/2015 Inactive Plavix 75 mg tablet RxNorm: 308201 1 Tablet(s) PO daily No Start Date 07/15/2016 Inactive Flomax 0.4 mg capsule RxNorm: 049143 1 Capsule(s) PO daily No Start Date 03/31/2016 Inactive Prostate Health oral RxNorm: 38275 oral No Start Date 02/25/2016 Inactive Niferex-150 (with Sumalate) oral RxNorm: 72635 oral No Start Date 04/21/2015 Inactive Benadryl 25 mg capsule RxNorm: 8798921 1 Capsule(s) PO QHS No Start Date 02/25/2016 Inactive Advanced Eye Health 500 mg-5 mg-1 mg capsule RxNorm: 1 Capsule(s) PO daily No Start Date 04/21/2015 Inactive warfarin oral RxNorm: 15352 oral No Start Date 06/06/2014 Inactive Lipitor 40 mg tablet RxNorm: 333522 1 Tablet(s) PO daily No Start Date 02/24/2017 Inactive Vitamin D2 1,000 unit capsule RxNorm: 407533 1 Capsule(s) PO BID No Start Date 04/21/2015 Inactive Norvasc 5 mg tablet RxNorm: 760710 1 Tablet(s) PO daily No Start Date 01/28/2015 Inactive potassium chloride ER 20 mEq tablet,extended release RxNorm: 864281 2 Tablet(s) PO BID No Start Date 07/02/2015 Inactive Keppra 500 mg tablet RxNorm: 998676 1 Tablet(s) PO daily No Start Date 10/27/2016 Inactive Iron (ferrous sulfate) 325 mg (65 mg iron) tablet RxNorm: 959404 Tablet(s) PO No Start Date 04/21/2015 Inactive hydrocodone 10 mg-acetaminophen 325 mg tablet RxNorm: 499811 1/2 Tablet(s) PO qid prn No Start Date 09/16/2014 Inactive Holmen 3 capsule RxNorm : 1 Capsule(s) PO daily No Start Date 04/21/2015 Inactive amiodarone 200 mg tablet RxNorm: 867337 Tablet(s) PO No Start Date 12/15/2015 Inactive 2 TABS bid X 2 WEEKS THEN 1 PO bid X 2 WEEKS THEN 1 PO DAILY Xanax 0.25 mg tablet RxNorm: 138519 1 Tablet(s) PO BID and 1 tab [...] 21.3 % 07/16/2016 Cbc With Differential Ord2 Kidder% 12.3 % 07/16/2016 Cbc With Differential Ord2 [...] 0.90 K/ul 07/16/2016 Cbc With Differential Ord2 Kidder ABS# 0.5 K/ul 07/16/2016 Cbc With Differential [...] 32.5 pg 07/23/2015 Cbc With Differential Ord2 Kidder% 10.7 % 07/23/2015 Cbc With Differential Ord2 [...] 0.76 K/ul 07/23/2015 Cbc With Differential Ord2 Kidder ABS# 0.4 K/ul 07/23/2015 Cbc With Differential Ord2 Eos ABS# 0.1 K/ul 07/23/2015 Cbc With Differential Ord2 Baso ABS# 0.0 K/ul 07/23/2015 Comp Metabolic Nxd838 NA 138 mEq/L 07/23/2015 Comp Metabolic Ytc216 K 4.0 mEq/L 07/23/2015 Comp Metabolic Rlx894 CL 101 mEq/L 07/23/2015 Comp Metabolic Lqq992 CO2 33.0 mEq/L 07/23/2015 Comp Metabolic Anr018 ANION GAP 8 07/23/2015 Comp Metabolic Tra663 GLUCOSE 101 mg/dL 07/23/2015 Comp Metabolic Pcq509 Creat 1.2 mg/dL 07/23/2015 Comp Metabolic Sri462 eGFR 65 ml/min/1.73m2 07/23/2015 Comp Metabolic Col766 BUN 16 mg/dL 07/23/2015 Comp Metabolic Mff793 B/C Ratio 13.9 Ratio 07/23/2015 Comp Metabolic Hdx321 CALCIUM 8.4 mg/dL 07/23/2015 Comp Metabolic Etd338 ALK PHOS 44 U/L 07/23/2015 Comp Metabolic Lwb948 AST(SGOT) 16 U/L 07/23/2015 Comp Metabolic Qig017 ALT(SGPT) 11 U/L 07/23/2015 Comp Metabolic Uto489 BILI T 0.7 mg/dL 07/23/2015 Comp Metabolic Jhc074 ALBUMIN 3.3 g/dL 07/23/2015 Comp Metabolic Ozj698 TPRO 7.3 g/dL 07/23/2015 Comp Metabolic Jar805 GLOB 4.0 g/dL 07/23/2015 Comp Metabolic Tes562 A/G Ratio 0.8 Ratio 07/23/2015 Comp Metabolic Ais255 Osmo 277 mOsmo 07/23/2015 Review of Systems [...] normal 10/08/2016 None Full Exam - General 1995 Eyes pupils and irises Overall: pupils equal, round, reactive to light and accomodation 10/08/2016 None Full Exam - General 1994 Ears/Nose/Throat otoscopic exam External auditory canal: partial cerumen occlusion 10/08/2016 None Full Exam - General 1995 Ears/Nose/Throat oral cavity/pharynx/larynx Overall: oral mucosa clear [...] KAITLIN 3 YRS PLUS IM SNOMED CT: 94987863 CPT-4: 58486 11/13/2015 URINALYSIS NONAUTO W/O SCOPE CPT-4: 90601 08/22/2015 ADMIN INFLUENZA VIRUS VAC CPT-4: G0008 12/18/2014 FLU VACC PRSV FREE INC ANTIG Formatting Model/CDA Sections, Assigned to/Joceline Ochoa CPT-4: 67362Tytfnvh 12/18/2014 TRIM SKIN LESIONS 2 TO 4 CPT-4: 86185 11/14/2014 ADMIN PNEUMOCOCCAL VACCINE SNOMED CT: 30728535 CPT-4: G0009 11/14/2014 Pneumococcal Polysaccharide Vaccine, 23-Valent, Ad CPT-4: 18687 11/14/2014 TRIM SKIN LESIONS 2 TO 4 CPT-4: 05018 10/17/2014 Vital Signs Date Vital 10/08/2016 Blood Pressure 1: 124/58 Code : 8480-6 Heart Rate 1: 55 bpm Height: 5'10" SpO2: 99% Weight: 07/16/2016 BMI: 24.4 Code: 88778-3 Heart Rate 1: 86 bpm Height: 5'10" [...] Weight: 192 lbs 07/22/2015 BMI: 26.5 Code: 17765-5 Height: 5'10" Weight: 185 lbs 06/20/2015 Blood Pressure 1: 130/76 Code : 8480-6 BMI: 26.7 Code : 48598-9 Heart Rate 1 : 73 bpm Height: 5'10" SpO2: 97% Weight: 186 lbs 06/04/2015 Blood Pressure 1: 146/54 Code : 8480-6 BMI: 26.4 Code : 00615-8 Heart Rate 1 : 72 bpm Height: 5'10" SpO2: 96% Weight: 184 lbs 04/22/2015 Blood Pressure 1: 146/52 Code : 8480-6 BMI: 27.1 Code : 86644-0 Heart Rate 1 : 80 bpm Height: 5'10" SpO2: 95% Weight: 189 lbs 12/12/2014 Blood Pressure 1: 140/82 Code : 8480-6 BMI: 25.4 Code : 03258-1 Heart Rate 1 : 58 bpm Height: 5'10" SpO2: 94% Weight: 177 lbs 11/14/2014 Blood Pressure 1: 140/70 Code : 8480-6 BMI: 26.0 Code : 07640-7 Heart Rate 1 : 60 bpm Height: 5'10" SpO2: 97% Weight: 181 lbs 10/17/2014 Blood Pressure 1: 130/82 Code : 8480-6 BMI: 25.5 Code : 12966-6 Heart Rate 1 : 74 bpm Height: 5'10" Weight: 178 lbs 06/06/2014 Blood Pressure 1: 140/62 Code : 8480-6 Heart Rate 1: 59 bpm SpO2: 98% Weight: 182 lbs 05/17/2014 Blood Pressure 1: 140/72 Code : 8480-6 BMI: 26.4 Code : 84082-8 Heart Rate 1 : 54 bpm Height: [...] Directive data Encounters Encounter Performer Location Codes Date ([id number]) [id number] EST. 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 PATIENT, LEVEL IV Diagnosis: Pain in right hip[ICD10: M25.551] Diagnosis: Disorientation, unspecified[ICD10: R41.0] Diagnosis: Essential (primary) hypertension[ICD10: I10] Diagnosis: Other microscopic hematuria[ICD10: R31.29] Diagnosis: Mastodynia[ICD10: N64.4] Diagnosis: Hypoxemia[ICD10: R09.02] Violet Quinonez MD, [facility] CPT-4: 42064 02/26/2016 86436 EST. PATIENT, LEVEL IV Diagnosis: Mild cognitive impairment, so stated[ICD10: G31.84] Diagnosis: Localized edema[ICD10: R60.0] Diagnosis: Encounter for immunization[ICD10: Z23] Gela Quinonez MD, [facility] CPT-4: 46638 11/13/2015 ([id number]) 04408 EST. PATIENT, LEVEL IV Diagnosis: Urinary tract infection, site not specified[ICD10: N39.0] Diagnosis: Essential (primary) hypertension[ICD10: I10] Diagnosis: Other intra-abdominal and pelvic swelling, mass and lump[ICD10: R19.09] Diagnosis: Contusion of abdominal wall, sequela[ICD10: S30.1XXS] Frannie Quinonez MD, [facility] CPT-4: 90982 08/22/2015 [id number] EST. PATIENT, LEVEL IV Diagnosis: Dysuria[ICD10: R30.0] Diagnosis: Anemia, unspecified[ICD10: D64.9] Gela Quinonez MD, [facility] CPT -4: 33534 07/22/2015 ([id number]) 68061 EST. 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 PATIENT, LEVEL IV Diagnosis: Localized edema[ICD10: R60.0] Diagnosis: Pressure ulcer of left buttock, stage 2[ICD10: L89.322] Diagnosis: Essential (primary) hypertension[ICD10: I10] Violet Quinonez MD, [facility] CPT-4: 88170 06/04/2015 ([id number]) 09155 EST. PATIENT, LEVEL IV Diagnosis: Localized edema[ICD10: R60.0] Diagnosis: Shortness of breath[ICD10: R06.02] Diagnosis: Other intra-abdominal and pelvic swelling, mass and lump[ICD10: R19.09] Diagnosis: Nonrheumatic aortic (valve) stenosis[ICD10: I35.0] Diagnosis: Paroxysmal atrial fibrillation[ICD10: I48.0] Violet Quinonez MD, [facility] CPT-4: 19019 04/22/2015 ([id number]) 65064 EST. 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 PATIENT, LEVEL III Diagnosis: ESSENTIAL HYPERTENSION[ICD9: 401.9] Diagnosis: Callus of foot[ICD9: 700] Diagnosis: Callous ulcer[ICD9: 707.8] Violet Quinonez MD, [facility] CPT- 4: 83094 10/17/2014 ([id number]) 69661 EST. PATIENT, LEVEL IV Diagnosis: ALLERGIC RHINITIS[ICD9: 477.9] Diagnosis: Callus of foot[ICD9: 700] Diagnosis: Iron deficiency anemia[ICD9: 280.9] [facility] CPT-4: 21717 06/06/2014 ([id number]) OFFICE VISIT, NEW - LEVEL 3 Diagnosis: ESSENTIAL HYPERTENSION[ICD9: 401.9] Diagnosis: Osteoarthritis[ICD9: 715.90] Diagnosis: Right hip pain[ICD9: 719.45] Diagnosis: A-fib[ICD9: 427.31] Diagnosis: ALLERGIC RHINITIS[ICD9: 477.9] Diagnosis: Iron deficiency anemia[ICD9: 280.9] [facility] CPT-4: 80372 05/17/2014 Plan of Care Planned Activity Notes Codes Status Date Referral: [facility] Referral Completed 01/03/2017 Visit Plan: Hypertension - well controlled - continue with current medications, continue with no added salt diet. Pt has been encouraged to exercise daily. The pt has been advised to call the office if there are any acute concerns about change in blood pressure readings at home. Possible new onset seizures-patient started on keppra in the ER-refer to neurology for evaluation Chronic right hip pain-refill hydrocodone for prn use Iron def anemia -increase Flintstones vitamins to 2 daily 10/08/2016 Appointment: Frannie Portillo WPtel: [address] [place], [place] [phone] (30 min) [facility] 10/08/2016 Patient Education: Patient Medication Summary Completed 10/08/2016 Patient Education: Hypertension Completed 10/08/2016 Care Plan: Referral Order SNOMED-CT : [id number] Pending 10/08/2016 Visit Plan: Gout Attack - pt given RX for uric Acid Level, and rx for medication for treatment of symptoms. Pt to call if symptoms do not improve, and pt to be given results of labs when available. 07/16/2016 Appointment: [facility] [phone] [phone] (30 min) Complex 07/16/2016 Patient Education: Patient Medication Summary Completed 07/16/2016 Visit Plan: Right hip pain-xray right hip Confusion- history of UTI-will check labs-CT head-check UA and treat for UTI-monitor symptoms and instructed patient's daughter to call if symptoms do not improve or if any worse. Patient's daughter, Keiko, verbalized understanding of plan. HTN-well controlled-no change in treatment 02/26/2016 Visit Plan: Right hip pain-xray right hip Confusion- history of UTI-will check labs-CT head-check UA and treat for UTI-monitor symptoms and instructed patient's daughter to call if symptoms do not improve or if any worse. Patient's daughter, Keiko, verbalized understanding of plan. HTN-well controlled-no change in treatment Addendum-nocturnal hypoxemia-patient wears oxygen at 2L nasal cannula at night and continues to benefit from therapy. 02/26/2016 Patient Education: Patient Medication Summary Completed 02/26/2016 Visit Plan: Dementia - Pt with slowly progressive pattern. I have discussed with pt and family the prognosis of this disease state and the need for the family to anticipate further decline with behavior changes. Continue with current plan of treatment. Edema - pt has been advised to elevate legs to prevent dependent edema, compression has been recommended to help to naturally decrease peripheral edema. Diuretic use has been discussed and pt has been instructed in appropriate use of such medication as necessary to further attempt to reduce peripheral edema. 11/13/2015 Appointment: [facility]u [facility] [phone] [phone] (15 min) Moderate 11/13/2015 Patient Education: Patient Medication Summary Completed 11/13/2015 Appointment: [facility]u [facility] [phone] [phone] (30 min) Complex 09/04/2015 Visit Plan: Hypertension - well controlled - continue with current medications, continue with no added salt diet. Pt has been encouraged to exercise daily. The pt has been advised to call the office if there are any acute concerns about change in blood pressure readings at home. Urinary Tract Infection-discussed natural and expected course of this diagnosis and to alert me if symptoms do not follow expected course, or if any worse. UA positive for infection today in the office-plan to send for culture and will call patient with results. RX sent to patient's pharmacy. Avoid tub baths, restrictive underwear, etc. Recommend patient start on probiotic while taking the antibiotic to prevent diarrhea. Patient verbalized understanding of plan. Left groin oukg-jkuzyjmz-xzbctew cellulitis-will start on abx-ultrasound pending 08/22/2015 Visit Plan: Hypertension - well controlled - continue with current medications, continue with no added salt diet. Pt has been encouraged to exercise daily. The pt has been advised to call the office if there are any acute concerns about change in blood pressure readings at home. Urinary Tract Infection-discussed natural and expected course of this diagnosis and to alert me if symptoms do not follow expected course, or if any worse. UA positive for infection today in the office-plan to send for culture and will call patient with results. RX sent to patient's pharmacy. Avoid tub baths, restrictive underwear, etc. Recommend patient start on probiotic while taking the antibiotic to prevent diarrhea. Patient verbalized understanding of plan. Left groin nysw-icmecrtq-qhmhbfu cellulitis-will start on abx-ultrasound pending 08/22/2015 Appointment: Frannie Portillo WPtel: [address] [place], [place] [phone] (30 min) Complex 08/22/2015 Patient Education: Patient Medication Summary Completed 08/22/2015 Visit Plan: Allergies - chronic - recommended pt to use allergy medication as prescribed. Pt has been counseled as to the appropriate use of the medication. Pt to call if allergy symptoms are not controlled with the medication. If using nasal spray, instructions as follows: Nasal spray- use twice daily, one spray per nostril twice daily, after 30 minutes, rinse out nose with saline spray.. Use opposite hand per nostril to spray in the nasal steroid allergy spray. UTI - pt with positive urinalysis - culture sent if appropriate. Antibiotic electronically prescribed to pt's pharmacy of choice. Pt to call if symptoms do not improve. 07/22/2015 Appointment: Frannie Portillo WPtel: [phone] (15 min) Moderate 07/22/2015 Patient Education: Patient Medication Summary Completed 07/22/2015 Visit Plan: Hypertension - well controlled - continue with current medications, continue with no added salt diet. Pt has been encouraged to exercise daily. The pt has been advised to call the office if there are any acute concerns about change in blood pressure readings at home. Edema - pt has been advised to elevate legs to prevent dependent edema, compression has been recommended to help to naturally decrease peripheral edema. Diuretic use has been discussed and pt has been instructed in appropriate use of such medication as necessary to further attempt to reduce peripheral edema. Eye allergies- recommend zaditor eye drops Iron deficiency anemia-start flinstones with iron Callus and Corns - the patient had identified skin defect that was treated as documented previously. The patient tolerated the trimming without incident and is to call if foot pain returns or the lesion returns. ADDENDUM: Doctor's eval of the patient - I, Dr. Quinonez, personally evaluated the patient with the nurse practitioner. I have reviewed the patient's chart, I have reviewed the patient's past medical history, problem list, medication list, and personal history. I agree with the documentation by the nurse practitioner in the HPI, physical exam, and the assessment and plan. 06/20/2015 Visit Plan: Hypertension - well controlled - continue with current medications, continue with no added salt diet. Pt has been encouraged to exercise daily. The pt has been advised to call the office if there are any acute concerns about change in blood pressure readings at home. Edema - pt has been advised to elevate legs to prevent dependent edema, compression has been recommended to help to naturally decrease peripheral edema. Diuretic use has been discussed and pt has been instructed in appropriate use of such medication as necessary to further attempt to reduce peripheral edema. Eye allergies- recommend zaditor eye drops Iron deficiency anemia-start flinstones with iron Callus and Corns - the patient had identified skin defect that was treated as documented previously. The patient tolerated the trimming without incident and is to call if foot pain returns or the lesion returns. 06/20/2015 Patient Education: Patient Medication Summary Completed 06/20/2015 Visit Plan: Hypertension - well controlled - continue with current medications, continue with no added salt diet. Pt has been encouraged to exercise daily. The pt has been advised to call the office if there are any acute concerns about change in blood pressure readings at home. Edema - pt has been advised to elevate legs to prevent dependent edema, compression has been recommended to help to naturally decrease peripheral edema. Diuretic use has been discussed and pt has been instructed in appropriate use of such medication as necessary to further attempt to reduce peripheral edema. Skin breakdown - Will have pt use zinc ointment, have home health care monitor, notify clinic if symptoms do not improve, or with any concerns. Dry Mouth - will have pt use biotene mouth wash, notify clinic if symptoms do not improve, or with any concerns. 06/04/2015 Visit Plan: Hypertension - well controlled - continue with current medications, continue with no added salt diet. Pt has been encouraged to exercise daily. The pt has been advised to call the office if there are any acute concerns about change in blood pressure readings at home. Edema - pt has been advised to elevate legs to prevent dependent edema, compression has been recommended to help to naturally decrease peripheral edema. Diuretic use has been discussed and pt has been instructed in appropriate use of such medication as necessary to further attempt to reduce peripheral edema. Skin breakdown - Will have pt use zinc ointment, have home health care monitor, notify clinic if symptoms do not improve, or with any concerns. Dry Mouth - will have pt use biotene mouth wash, notify clinic if symptoms do not improve, or with any concerns. 06/04/2015 Appointment: [facility] [address] [id number] [place] (15 min) Moderate 06/04/2015 Patient Education: Patient Medication Summary Completed 06/04/2015 Patient Education: Hypertension Completed 06/04/2015 [facility]ment: [facility] [id number] [place] (15 min) Moderate 05/12/2015 Visit Plan: Aortic stensis-patient had TAVR at on 04/09/15 -currently at home with home health Left groin hematoma-Dr Quinonez in to evaluate patient and patient sent for stat ultrasound Tyce-tcznunya-bbyix- shortness of breath-patient sent for stat labs-plan to start lasix twice daily x 2 days and then daily thereafter-repeat labs in 1 week-will also set patient up for night time oxygen study. Post op anemia-check cbc today ADDENDUM: Doctor' s eval of the patient - Dr. Devi Calloway, personally evaluated the patient with the nurse practitioner. I have reviewed the patient's chart, I have reviewed the patient's past medical history, problem list, medication list, and personal history. I agree with the documentation by the nurse practitioner in the HPI, physical exam, and the assessment and plan. 04/22/2015 Visit Plan: Aortic stensis-patient had TAVR at on 04/09/15 -currently at home with home health Left groin hematoma-Dr Quinonez in to evaluate patient and patient sent for stat ultrasound Ccbr-ipmjzcpi-ktkwg- shortness of breath-patient sent for stat labs-plan to start lasix twice daily x 2 days and then daily thereafter-repeat labs in 1 week-will also set patient up for night time oxygen study. Post op anemia-check cbc today ADDENDUM: Doctor' s eval of the patient - Dr. Devi Calloway, personally evaluated the patient with the nurse practitioner. I have reviewed the patient's chart, I have reviewed the patient's past medical history, problem list, medication list, and personal history. I agree with the documentation by the nurse practitioner in the HPI, physical exam, and the assessment and plan. 04/22/2015 Visit Plan: Aortic stensis-patient had TAVR at on 04/09/15 -currently at home with home health Left groin hematoma-Dr Quinonez in to evaluate patient and patient sent for stat ultrasound Uubf-fswzrvkw-xcxlh- shortness of breath-patient sent for stat labs-plan to start lasix twice daily x 2 days and then daily thereafter-repeat labs in 1 week-will also set patient up for night time oxygen study. Post op anemia-check cbc today 04/22/2015 Appointment: (30 min) Complex 04/22/2015 Patient Education: Patient Medication Summary Completed 04/22/2015 Appointment: Injection 12/18/2014 Patient Education: Patient Medication Summary Completed 12/18/2014 Visit Plan: Hypertension - well controlled - continue with current medications, continue with no added salt diet. Pt has been encouraged to exercise daily. The pt has been advised to call the office if there are any acute concerns about change in blood pressure readings at home. Callus and Corns - the patient had identified skin defect that was treated as documented previously. The patient tolerated the trimming without incident and is to call if foot pain returns or the lesion returns. 12/12/2014 Visit Plan: Hypertension - well controlled - continue with current medications, continue with no added salt diet. Pt has been encouraged to exercise daily. The pt has been advised to call the office if there are any acute concerns about change in blood pressure readings at home. Callus and Corns - the patient had identified skin defect that was treated as documented previously. The patient tolerated the trimming without incident and is to call if foot pain returns or the lesion returns. 12/12/2014 Appointment: Violet Quinonez WPtel: [address] [place], [place] [phone] (15 min) Moderate 12/12/2014 Patient Education: Patient Medication Summary Completed 12/12/2014 Visit Plan: Callus with ulceration - debrided the lesions on the right and left foot - stop callus pads. Chronic Hypertension - continue with norvasc, monitor sodium intake. 11/14/2014 Visit Plan: Callus with ulceration - debrided the lesions on the right and left foot - stop callus pads. Chronic Hypertension - continue with norvasc, monitor sodium intake. 11/14/2014 Appointment: Violet Quinonez WPtel: [address] [place], [place] [phone] (30 min) Complex 11/14/2014 Patient Education: Patient Medication Summary Completed 11/14/2014 Patient Education: Hypertension Completed 11/14/2014 Visit Plan: Hypertension - well controlled - continue with current medications, continue with no added salt diet. Pt has been encouraged to exercise daily. The pt has been advised to call the office if there are any acute concerns about change in blood pressure readings at home. Troy/Callus - debrided today - recommended special off loading shoes - pt needs to be seen in clinic in the next 3 weeks for re-eval of the lesion on the foot. 10/17/2014 Appointment: Violet Quinonez WPtel: [id number] (30 min) Complex 10/17/2014 Patient Education: Patient Medication Summary Completed 10/17/2014 Patient Education: Hypertension Completed 10/17/2014 Appointment: Follow up 06/20/2014 Visit Plan: Allergies - chronic - recommended pt to use allergy medication as prescribed. Pt has been counseled as to the appropriate use of the medication. Pt to call if allergy symptoms are not controlled with the medication. If using nasal spray, instructions as follows: Nasal spray- use twice daily, one spray per nostril twice daily, after 30 minutes, rinse out nose with saline spray.. Use opposite hand per nostril to spray in the nasal steroid allergy spray. Callus and Corns - the patient had identified skin defect that was treated as documented previously. The patient tolerated the trimming without incident and is to call if foot pain returns or the lesion returns. Iron deficiency anemia-check labs 06/06/2014 Patient Education: Patient Medication Summary Completed 06/06/2014 Care Plan: COMPLETE CBC AUTOMATED LOINC : 30404-0 Ordered 06/06/2014 Visit Plan: Hypertension - well controlled - continue with current medications, continue with no added salt diet. Pt has been encouraged to exercise daily. The pt has been advised to call the office if there are any acute concerns about change in blood pressure readings at home. Atrial Fibrillation - pt on chronic anticoagulation and is currently rate controlled. The pt is to have labs done as appropriate to monitor medication levels and is to report if they start to feel as if their heart rate is becoming uncontrolled. Arthritis-right hip pain- occasionally uncontrolled symptoms- recommend pt to take antiinflammatory as directed for pain control. Okay to use hydrocodone for break through pain symptoms. Recommend cardiac clearance before hip surgery. Olcrbudjq-qidouxz-weetzfqef nasal saline rinses Iron deficiency anemia-obtain copy of labs 05/17/2014 Patient Education: Patient Medication Summary Completed 05/17/2014 Patient Education: Hypertension Completed 05/17/2014 Referral: [facility] Referral Appointment Requested Instructions Comment . Allergies - chronic - recommended pt to use allergy medication as prescribed. Pt has been counseled as to the appropriate use of the medication. Pt to call if allergy symptoms are not controlled with the medication. If using nasal spray, instructions as follows: Nasal spray- use twice daily, one spray per nostril twice daily, after 30 minutes, rinse out nose with saline spray.. Use opposite hand per nostril to spray in the nasal steroid allergy spray. UTI - pt with positive urinalysis - culture sent if appropriate. Antibiotic electronically prescribed to pt's pharmacy of choice. Pt to call if symptoms do not improve. culture urine keflex 500mg twice daily take probiotic while on abx if urine culture negative, refer to urology i will call when i get the ultrasound back . Hypertension - well controlled - continue with current medications, continue with no added salt diet. Pt has been encouraged to exercise daily. The pt has been advised to call the office if there are any acute concerns about change in blood pressure readings at home. Urinary Tract Infection-discussed natural and expected course of this diagnosis and to alert me if symptoms do not follow expected course, or if any worse. UA positive for infection today in the office-plan to send for culture and will call patient with results. RX sent to patient's pharmacy. Avoid tub baths, restrictive underwear, etc. Recommend patient start on probiotic while taking the antibiotic to prevent diarrhea. Patient verbalized understanding of plan. Left groin cnrg-xgkvhyti-qhvbdmd cellulitis-will start on abx-ultrasound pending culture urine keflex 500mg twice daily take probiotic while on abx if urine culture negative, refer to urology i will call when i get the ultrasound back . Hypertension - well controlled - continue with current medications, continue with no added salt diet. Pt has been encouraged to exercise daily. The pt has been advised to call the office if there are any acute concerns about change in blood pressure readings at home. Urinary Tract Infection-discussed natural and expected course of this diagnosis and to alert me if symptoms do not follow expected course, or if any worse. UA positive for infection today in the office-plan to send for culture and will call patient with results. RX sent to patient's pharmacy. Avoid tub baths, restrictive underwear, etc. Recommend patient start on probiotic while taking the antibiotic to prevent diarrhea. Patient verbalized understanding of plan. Left groin cqss-gcstmrlg-dqbwhsp cellulitis-will start on abx-ultrasound pending Monitor your blood pressure at home and record. Bring in your readings to your next appointment, or as directed. Call for chest pain, shortness of breath, headaches, or other concerns. . Hypertension - well controlled - continue with current medications, continue with no added salt diet. Pt has been encouraged to exercise daily. The pt has been advised to call the office if there are any acute concerns about change in blood pressure readings at home. Troy/Callus - debrided today - recommended special off loading shoes - pt needs to be seen in clinic in the next 3 weeks for re-eval of the lesion on the foot. Tamikaes with iron daily Check cbc, cmp next week-we will call home health . Hypertension - well controlled - continue with current medications, continue with no added salt diet. Pt has been encouraged to exercise daily. The pt has been advised to call the office if there are any acute concerns about change in blood pressure readings at home. Edema - pt has been advised to elevate legs to prevent dependent edema, compression has been recommended to help to naturally decrease peripheral edema. Diuretic use has been discussed and pt has been instructed in appropriate use of such medication as necessary to further attempt to reduce peripheral edema. Eye allergies-recommend zaditor eye drops Iron deficiency anemia-start flinstones with iron Callus and Corns - the patient had identified skin defect that was treated as documented previously. The patient tolerated the trimming without incident and is to call if foot pain returns or the lesion returns. ADDENDUM: Doctor's eval of the patient - I, Dr. Quinonez, personally evaluated the patient with the nurse practitioner. I have reviewed the patient's chart, I have reviewed the patient's past medical history, problem list, medication list, and personal history. I agree with the documentation by the nurse practitioner in the HPI, physical exam, and the assessment and plan. FIinstones with iron daily Check cbc, cmp next week-we will call home health . Hypertension - well controlled - continue with current medications, continue with no added salt diet. Pt has been encouraged to exercise daily. The pt has been advised to call the office if there are any acute concerns about change in blood pressure readings at home. Edema - pt has been advised to elevate legs to prevent dependent edema, compression has been recommended to help to naturally decrease peripheral edema. Diuretic use has been discussed and pt has been instructed in appropriate use of such medication as necessary to further attempt to reduce peripheral edema. Eye allergies-recommend zaditor eye drops Iron deficiency anemia-start flinstones with iron Callus and Corns - the patient had identified skin defect that was treated as documented previously. The patient tolerated the trimming without incident and is to call if foot pain returns or the lesion returns. . Dementia - Pt with slowly progressive pattern. I have discussed with pt and family the prognosis of this disease state and the need for the family to anticipate further decline with behavior changes. Continue with current plan of treatment. Edema - pt has been advised to elevate legs to prevent dependent edema, compression has been recommended to help to naturally decrease peripheral edema. Diuretic use has been discussed and pt has been instructed in appropriate use of such medication as necessary to further attempt to reduce peripheral edema. NASAL SALINE TO BILATERAL NARES DAILY TO HELP WITH SINUS CONGESTION . Hypertension - well controlled - continue with current medications, continue with no added salt diet. Pt has been encouraged to exercise daily. The pt has been advised to call the office if there are any acute concerns about change in blood pressure readings at home. Atrial Fibrillation - pt on chronic anticoagulation and is currently rate controlled. The pt is to have labs done as appropriate to monitor medication levels and is to report if they start to feel as if their heart rate is becoming uncontrolled. Arthritis-right hip pain- occasionally uncontrolled symptoms- recommend pt to take antiinflammatory as directed for pain control. Okay to use hydrocodone for break through pain symptoms. Recommend cardiac clearance before hip surgery. Igguymwuq-ldddutf-vtqrhwvww nasal saline rinses Iron deficiency anemia-obtain copy of labs Colcrys (colchicine) - 1.2mg dose once then 0.6mg PO 1 hour later. Gout Attack - pt given RX for uric Acid Level, and rx for medication for treatment of symptoms. Pt to call if symptoms do not improve, and pt to be given results of labs when available. . Callus with ulceration - debrided the lesions on the right and left foot - stop callus pads. Chronic Hypertension - continue with norvasc, monitor sodium intake. . Callus with ulceration - debrided the lesions on the right and left foot - stop callus pads. Chronic Hypertension - continue with norvasc, monitor sodium intake. STAT abdominal ultrasound CHECK LABS . Aortic stensis-patient had TAVR at on 04/09/15-currently at home with home health Left groin hematoma-Dr Quinonez in to evaluate patient and patient sent for stat ultrasound Ursg-ynpwqcxb-jvhtj-shortness of breath-patient sent for stat labs-plan to start lasix twice daily x 2 days and then daily thereafter-repeat labs in 1 week -will also set patient up for night time oxygen study. Post op anemia-check cbc today ADDENDUM: Doctor's eval of the patient - I, Dr. Quinonez, personally evaluated the patient with the nurse practitioner. I have reviewed the patient's chart, I have reviewed the patient's past medical history, problem list, medication list, and personal history. I agree with the documentation by the nurse practitioner in the HPI, physical exam, and the assessment and plan. STAT abdominal ultrasound CHECK LABS . Aortic stensis-patient had TAVR at on 04/09/15-currently at home with home health Left groin hematoma-Dr Quinonez in to evaluate patient and patient sent for stat ultrasound Ujbb-plwbebtx-ujplk-shortness of breath-patient sent for stat labs-plan to start lasix twice daily x 2 days and then daily thereafter-repeat labs in 1 week -will also set patient up for night time oxygen study. Post op anemia-check cbc today ADDENDUM: Doctor's eval of the patient - I, Dr. Quinonez, personally evaluated the patient with the nurse practitioner. I have reviewed the patient's chart, I have reviewed the patient's past medical history, problem list, medication list, and personal history. I agree with the documentation by the nurse practitioner in the HPI, physical exam, and the assessment and plan. STAT abdominal ultrasound CHECK LABS . Aortic stensis-patient had TAVR at on 04/09/15-currently at home with home health Left groin hematoma-Dr Quinonez in to evaluate patient and patient sent for stat ultrasound Rysu-kzdcubpm-ejwru-shortness of breath-patient sent for stat labs-plan to start lasix twice daily x 2 days and then daily thereafter-repeat labs in 1 week -will also set patient up for night time oxygen study. Post op anemia-check cbc today . Hypertension - well controlled - continue with current medications, continue with no added salt diet. Pt has been encouraged to exercise daily. The pt has been advised to call the office if there are any acute concerns about change in blood pressure readings at home. Edema - pt has been advised to elevate legs to prevent dependent edema, compression has been recommended to help to naturally decrease peripheral edema. Diuretic use has been discussed and pt has been instructed in appropriate use of such medication as necessary to further attempt to reduce peripheral edema. Skin breakdown - Will have pt use zinc ointment, have home health care monitor, notify clinic if symptoms do not improve, or with any concerns. Dry Mouth - will have pt use biotene mouth wash, notify clinic if symptoms do not improve, or with any concerns. . Hypertension - well controlled - continue with current medications, continue with no added salt diet. Pt has been encouraged to exercise daily. The pt has been advised to call the office if there are any acute concerns about change in blood pressure readings at home. Edema - pt has been advised to elevate legs to prevent dependent edema, compression has been recommended to help to naturally decrease peripheral edema. Diuretic use has been discussed and pt has been instructed in appropriate use of such medication as necessary to further attempt to reduce peripheral edema. Skin breakdown - Will have pt use zinc ointment, have home health care monitor, notify clinic if symptoms do not improve, or with any concerns. Dry Mouth - will have pt use biotene mouth wash, notify clinic if symptoms do not improve, or with any concerns. . Hypertension - well controlled - continue with current medications, continue with no added salt diet. Pt has been encouraged to exercise daily. The pt has been advised to call the office if there are any acute concerns about change in blood pressure readings at home. Possible new onset seizures-patient started on keppra in the ER-refer to neurology for evaluation Chronic right hip pain-refill hydrocodone for prn use Iron def anemia-increase Flintstones vitamins to 2 daily STOP CLARITIN START FLONASE . Allergies - chronic - recommended pt to use allergy medication as prescribed. Pt has been counseled as to the appropriate use of the medication. Pt to call if allergy symptoms are not controlled with the medication. If using nasal spray, instructions as follows: Nasal spray- use twice daily, one spray per nostril twice daily, after 30 minutes, rinse out nose with saline spray.. Use opposite hand per nostril to spray in the nasal steroid allergy spray. Callus and Corns - the patient had identified skin defect that was treated as documented previously. The patient tolerated the trimming without incident and is to call if foot pain returns or the lesion returns. Iron deficiency anemia-check labs . Hypertension - well controlled - continue with current medications, continue with no added salt diet. Pt has been encouraged to exercise daily. The pt has been advised to call the office if there are any acute concerns about change in blood pressure readings at home. Callus and Corns - the patient had identified skin defect that was treated as documented previously. The patient tolerated the trimming without incident and is to call if foot pain returns or the lesion returns. . Hypertension - well controlled - continue with current medications, continue with no added salt diet. Pt has been encouraged to exercise daily. The pt has been advised to call the office if there are any acute concerns about change in blood pressure readings at home. Callus and Corns - the patient had identified skin defect that was treated as documented previously. The patient tolerated the trimming without incident and is to call if foot pain returns or the lesion returns. CT HEAD XRAY RIGHT HIP UA WITH C&S CHECK LABS-CBC, CMP, TSH, VITAMIN B12 LEVEL . Right hip pain-xray right hip Confusion-history of UTI-will check labs-CT head-check UA and treat for UTI- monitor symptoms and instructed patient's daughter to call if symptoms do not improve or if any worse. Patient's daughter, Keiko, verbalized understanding of plan. HTN-well controlled-no change in treatment CT HEAD XRAY RIGHT HIP UA WITH C&S CHECK LABS-CBC, CMP, TSH, VITAMIN B12 LEVEL . Right hip pain-xray right hip Confusion-history of UTI-will check labs-CT head-check UA and treat for UTI- monitor symptoms and instructed patient's daughter to call if symptoms do not improve or if any worse. Patient's daughter, Keiko, verbalized understanding of plan. HTN-well controlled-no change in treatment Addendum-nocturnal hypoxemia-patient wears oxygen at 2L nasal cannula at night and continues to benefit from therapy.
--- OUTSIDE RECORDS SUMMARY | 2017-05-24 17:07 | XMS REPORT | Continuity of Care Document ---
Author Author [facility] Organization [facility] Address Unknown Phone Unavailable Allergies Active Description Code Type Severity Reaction Onset Reported/Identified Relationship to Patient Clinical Status Yes CORTISONE CORTISONE UNKNOWN Yes IODINE IODINE UNKNOWN Yes LATEX, NATURAL RUBBER LATEX , NATURAL RUBBE UNKNOWN Yes ULTRASOUD GEL ULTRASOUD GEL MODERATE Yes Contrast Dye Drug N/A N/A Yes cortisone Drug N/A N/A Yes Latex Drug N/A N/ A Yes CORTISONE UNKNOWN UNKNOWN Yes IODINE UNKNOWN UNKNOWN Yes LATEX, NATURAL RUBBER UNKNOWN UNKNOWN Yes ULTRASOUD GEL MODERATE DERMATOLOGICAL - MARII Yes cortisone [id number] Drug Allergy Unknown N/A 05/02/2015 Yes DOPPLER GEL DOPPLER GEL Unknown N/A 05/02/2015 Yes iodine [id number] Drug Allergy Unknown N/A 05/02/2015 Yes latex [id number] Drug Allergy Unknown N/A 05/02/2015 Medications There is no data. 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, 08/31/2015 Ot D64.9 ANEMIA, UNSPECIFIED 08/31/2015 Ot I50.9 HEART FAILURE , UNSPECIFIED 08/31/2015 Ot I51.7 CARDIOMEGALY 08/31/2015 Ot J90 PLEURAL EFFUSION, NOT ELSEWHERE CLASSIFI 08/31/2015 Ot M16.0 BILATERAL PRIMARY OSTEOARTHRITIS OF HIP 08/31/2015 Ot N39.0 URINARY TRACT INFECTION, SITE NOT SPECIF 08/31/2015 Ot 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 08/31/2015 Ot R41.0 DISORIENTATION, UNSPECIFIED 08/31/2015 Ot R41.82 ALTERED MENTAL STATUS, UNSPECIFIED 08/31/2015 Ot Z95.2 PRESENCE OF PROSTHETIC HEART VALVE 09/02/2015 Ot D64.9 ANEMIA, UNSPECIFIED 09/02/2015 Ot I50.9 HEART FAILURE , UNSPECIFIED 09/02/2015 Ot I51.7 CARDIOMEGALY 09/02/2015 Ot J90 PLEURAL EFFUSION, NOT ELSEWHERE CLASSIFI 09/02/2015 Ot M16.0 BILATERAL PRIMARY OSTEOARTHRITIS OF HIP 09/02/2015 Ot N39.0 URINARY TRACT INFECTION, SITE NOT SPECIF 09/02/2015 Ot 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 09/02/2015 Ot R41.0 DISORIENTATION, UNSPECIFIED 09/02/2015 Ot R41.82 ALTERED MENTAL STATUS, UNSPECIFIED 09/02/2015 Ot Z95.2 PRESENCE OF PROSTHETIC HEART VALVE 09/02/2015 KIKA HERNANDEZ APRN Ot L76.82 OTH POSTPROCEDURAL COMPLICATIONS OF SKIN 09/02/2015 KIKA HERNANDEZ APRN Ot R19.04 LEFT LOWER QUADRANT ABDOMINAL SWELLING, 09/03/2015 KIKA HERNANDEZ APRN Ot L76.82 OTH POSTPROCEDURAL COMPLICATIONS OF SKIN 09/03/2015 KIKA HERNANDEZ LIBRARIAN SPECIAL LIBRARY Ot R19.04 LEFT LOWER QUADRANT ABDOMINAL SWELLING, 09/26/2015 JEFF GARZON Ot K40.90 UNIL INGUINAL HERNIA, W/O OBST OR GANGR, 10/06/2015 JEFF GARZON Ot K40.90 UNIL INGUINAL HERNIA, W/O OBST OR GANGR, 10/29/2015 ROBBIN MARTINEZ MD Ot D64.9 ANEMIA, UNSPECIFIED 10/29/2015 ROBBIN MARTINEZ MD Ot I97.62 POSTPROC HEMOR/HEMTOM OF A CIRC SYS ORG 10/29/2015 ROBBIN MARTINEZ MD Ot R53.83 OTHER FATIGUE 12/23/2015 ROBBIN MARTINEZ MD Ot D64.9 ANEMIA, UNSPECIFIED 12/23/2015 ROBBIN MARTINEZ MD Ot I97.62 POSTPROC HEMOR/HEMTOM OF A CIRC SYS ORG 12/23/2015 ROBBIN MARTINEZ MD Ot R53.83 OTHER FATIGUE 12/23/2015 ROBBIN MARTINEZ MD Ot D64.9 ANEMIA, UNSPECIFIED 12/23/2015 JEFF GARZON SALESPERSON HANDBAGS Ot K40.90 UNIL INGUINAL HERNIA, W/O OBST OR GANGR, 12/23/2015 HERIBERTO ORTEGA MD Ot F03.90 UNSPECIFIED DEMENTIA WITHOUT BEHAVIORAL 12/23/2015 HERIBERTO ORTEGA MD Ot I10 ESSENTIAL (PRIMARY) HYPERTENSION 12/23/2015 HERIBERTO ORTEGA MD Ot N28.9 DISORDER OF KIDNEY AND URETER, UNSPECIFI 12/23/2015 HERIBERTO ORTEGA MD Ot R06.02 SHORTNESS OF BREATH 12/23/2015 HERIBERTO ORTEGA MD Ot R41.82 ALTERED MENTAL STATUS, UNSPECIFIED 12/23/2015 HERIBERTO ORTEGA MD Ot R42 DIZZINESS AND GIDDINESS 12/23/2015 HERIBERTO ORTEGA MD Ot R53.1 WEAKNESS 12/23/2015 HERIBERTO ORTEGA MD Ot Z79.82 PLANT HEALTH MANAGER (CURRENT) USE OF ASPIRIN 12/23/2015 HERIBERTO ORTEGA MD Ot Z79.899 OTHER PLANT HEALTH MANAGER (CURRENT) DRUG THERAPY 12/23/2015 HERIBERTO ORTEGA MD Ot Z95.1 PRESENCE OF AORTOCORONARY BYPASS GRAFT 12/23/2015 HERIBERTO ORTEGA MD Ot Z95.2 PRESENCE OF PROSTHETIC HEART VALVE 12/24/2015 HERIBERTO ORTEGA MD Ot F03.90 UNSPECIFIED DEMENTIA WITHOUT BEHAVIORAL 12/24/2015 HERIBERTO ORTEGA MD Ot I10 ESSENTIAL (PRIMARY) HYPERTENSION 12/24/2015 HERIBERTO ORTEGA MD Ot N28.9 DISORDER OF KIDNEY AND URETER, UNSPECIFI 12/24/2015 HERIBERTO ORTEGA MD Ot R06.02 SHORTNESS OF BREATH 12/24/2015 HERIBERTO ORTEGA MD Ot R41.82 ALTERED MENTAL STATUS, UNSPECIFIED 12/24/2015 HERIBERTO ORTEGA MD, Ot R42 DIZZINESS AND GIDDINESS 12/24/2015 HERIBERTO ORTEGA MD Ot R53.1 WEAKNESS 12/24/2015 HERIBERTO ORTEGA MD Ot Z79.82 SNF (CURRENT) USE OF ASPIRIN 12/24/2015 HERIBERTO ORTEGA MD Ot Z79.899 OTHER PLANT HEALTH MANAGER (CURRENT) DRUG THERAPY 12/24/2015 HERIBERTO ORTEGA MD, Ot Z95.1 PRESENCE OF AORTOCORONARY BYPASS GRAFT 12/24/2015 HERIBERTO ORTEGA MD, Ot Z95.2 PRESENCE OF PROSTHETIC HEART VALVE 12/24/2015 ROBBIN MARTINEZ MD Ot D64.9 ANEMIA, UNSPECIFIED 12/24/2015 ROBBIN MARTINEZ MD Ot I97.62 POSTPROC HEMOR/HEMTOM OF A CIRC SYS ORG 12/24/2015 ROBBIN MARTINEZ MD Ot R53.83 OTHER FATIGUE 12/24/2015 ROBBIN MARTINEZ MD Ot D64.9 ANEMIA, UNSPECIFIED 12/24/2015 JEFF GARZON Ot K40.90 UNIL INGUINAL HERNIA, W/O OBST OR GANGR, 01/06/2016 HERIBERTO ORTEGA MD Ot F03.90 UNSPECIFIED DEMENTIA WITHOUT BEHAVIORAL 01/06/2016 HERIBERTO ORTEGA MD Ot I10 ESSENTIAL (PRIMARY) HYPERTENSION 01/06/2016 HERIBERTO ORTEGA MD Ot N28.9 DISORDER OF KIDNEY AND URETER, UNSPECIFI 01/06/2016 HERIBERTO ORTEGA MD Ot R06.02 SHORTNESS OF BREATH 01/06/2016 HERIBERTO ORTEGA MD Ot R41.82 ALTERED MENTAL STATUS, UNSPECIFIED 01/06/2016 HERIBERTO ORTEGA MD, Ot R42 DIZZINESS AND GIDDINESS 01/06/2016 HERIBERTO ORTEGA MD Ot R53.1 WEAKNESS 01/06/2016 HERIBERTO ORTEGA MD Ot Z79.82 PLANT HEALTH MANAGER (CURRENT) USE OF ASPIRIN 01/06/2016 HERIBERTO ORTEGA MD Ot Z79.899 OTHER SNF (CURRENT) DRUG THERAPY 01/06/2016 HERIBERTO ORTEGA MD Ot Z95.1 PRESENCE OF AORTOCORONARY BYPASS GRAFT 01/06/2016 HERIBERTO ORTEGA MD Ot Z95.2 PRESENCE OF PROSTHETIC HEART VALVE 01/07/2016 HERIBERTO ORTEGA MD Ot F03.90 UNSPECIFIED DEMENTIA WITHOUT BEHAVIORAL 01/07/2016 HERIBERTO ORTEGA MD Ot I10 ESSENTIAL (PRIMARY) HYPERTENSION 01/07/2016 HERIBERTO ORTEGA MD Ot N28.9 DISORDER OF KIDNEY AND URETER, UNSPECIFI 01/07/2016 HERIBERTO ORTEGA MD Ot R06.02 SHORTNESS OF BREATH 01/07/2016 HERIBERTO ORTEGA MD Ot R41.82 ALTERED MENTAL STATUS, UNSPECIFIED 01/07/2016 HERIBERTO ORTEGA MD Ot R42 DIZZINESS AND GIDDINESS 01/07/2016 HERIBERTO ORTEGA MD Ot R53.1 WEAKNESS 01/07/2016 HERIBERTO ORTEGA MD Ot Z79.82 PLANT HEALTH MANAGER (CURRENT) USE OF ASPIRIN 01/07/2016 HERIBERTO ORTEGA MD Ot Z79.899 OTHER PLANT HEALTH MANAGER (CURRENT) DRUG THERAPY 01/07/2016 HERIBERTO ORTEGA MD Ot Z95.1 PRESENCE OF AORTOCORONARY BYPASS GRAFT 01/07/2016 HERIBERTO ORTEGA MD Ot Z95.2 PRESENCE OF PROSTHETIC HEART VALVE 02/18/2016 Kika Hernandez 284.19 OTHER PANCYTOPENIA 02/18/2016 Kika Hernandez 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, UNCOMPLICATED 02/18/2016 Kika Hernandez 585.9 CHRONIC KIDNEY DISEASE, UNSPECIFIED 02/18/2016 Kika Hernandez D61.818 OTHER PANCYTOPENIA 02/18/2016 Kika Hernandez F03.90 UNSPECIFIED DEMENTIA WITHOUT BEHAVIORAL DISTURBANCE 02/18/2016 Hernandez, Peter W N18.9 CHRONIC KIDNEY DISEASE, UNSPECIFIED 02/27/2016 JEFF GARZON SALESPERSON HANDBAGS Ot I10 ESSENTIAL (PRIMARY) HYPERTENSION 02/27/2016 JEFF GARZON SALESPERSON HANDBAGS Ot I10 ESSENTIAL (PRIMARY) HYPERTENSION 02/27/2016 JEFF GARZON SALESPERSON HANDBAGS Ot M16.11 UNILATERAL PRIMARY OSTEOARTHRITIS, RIGHT 02/27/2016 JEFF GARZON SALESPERSON HANDBAGS Ot R31.29 OTHER MICROSCOPIC HEMATURIA 02/27/2016 JEFF GARZON SALESPERSON HANDBAGS Ot R41.0 DISORIENTATION, UNSPECIFIED 03/03/2016 JEFF GARZON SALESPERSON HANDBAGS Ot D61.818 OTHER PANCYTOPENIA 03/23/2016 JEFF GARZON SALESPERSON HANDBAGS Ot I10 ESSENTIAL (PRIMARY) HYPERTENSION 03/23/2016 JEFF GARZON SALESPERSON HANDBAGS Ot M16.11 UNILATERAL PRIMARY OSTEOARTHRITIS, RIGHT 03/23/2016 JEFF GARZON SALESPERSON HANDBAGS Ot R31.29 OTHER MICROSCOPIC HEMATURIA 03/23/2016 JEFF GARZON SALESPERSON HANDBAGS Ot R41.0 DISORIENTATION, UNSPECIFIED 03/24/2016 JEFF GARZON SALESPERSON HANDBAGS Ot I10 ESSENTIAL (PRIMARY) HYPERTENSION 03/24/2016 JEFF GARZON SALESPERSON HANDBAGS Ot M16.11 UNILATERAL PRIMARY OSTEOARTHRITIS, RIGHT 03/24/2016 JEFF GARZON SALESPERSON HANDBAGS Ot R31.29 OTHER MICROSCOPIC HEMATURIA 03/24/2016 JEFF GARZON SALESPERSON HANDBAGS Ot R41.0 DISORIENTATION, UNSPECIFIED 03/30/2016 JEFF GARZON SALESPERSON HANDBAGS Ot D61.818 OTHER PANCYTOPENIA 10/02/2016 LESTER MCMANUS, MIKY Salmon Ot E78.00 PURE HYPERCHOLESTEROLEMIA, UNSPECIFIED 10/02/2016 LESTER MCMANUS, MIKY Salmon Ot F03.90 UNSPECIFIED DEMENTIA WITHOUT BEHAVIORAL 10/02/2016 LESTER MCMANUS, MIKY Salmon Ot F32.9 MAJOR DEPRESSIVE DISORDER, SINGLE EPISOD 10/02/2016 LESTER MCMANUS, MIKY Salmon Ot I12.9 HYPERTENSIVE CHRONIC KIDNEY DISEASE W ST 10/02/2016 LESTER MCMANUS, MIKY Salmon Ot I25.10 ATHSCL HEART DISEASE OF [place] CORONARY 10/02/2016 LESTER MCMANUS, MIKY Salmon Ot N18.9 CHRONIC KIDNEY DISEASE, UNSPECIFIED 10/02/2016 LESTER MCMANUS, MIKY Salmon Ot R41.82 ALTERED MENTAL STATUS, UNSPECIFIED 10/02/2016 LESTER MCMANUS, MIKY Salmon Ot R56.9 UNSPECIFIED CONVULSIONS 10/02/2016 LESTER MCMANUS, MIKY Salmon Ot Z79.82 PLANT HEALTH MANAGER (CURRENT) USE OF ASPIRIN 10/02/2016 LESTER MCMANUS, MIKY Salmon Ot Z86.79 PERSONAL HISTORY OF OTHER DISEASES OF 10/02/2016 LESTER MCMANUS, MIKY Salmon Ot Z87.438 PERSONAL HISTORY OF OTHER DISEASES OF [place] 10/02/2016 LESTER MCMANUS, MIKY Salmon Ot Z95.2 PRESENCE OF PROSTHETIC HEART VALVE 10/02/2016 LESTER MCMANUS, MIKY Salmon Ot Z95.5 PRESENCE OF CORONARY ANGIOPLASTY IMPLANT 10/03/2016 MIKY BATISTA MD Ot E78.00 PURE HYPERCHOLESTEROLEMIA, UNSPECIFIED 10/03/2016 LESTER MCMANUS, MIKY Salmon Ot F03.90 UNSPECIFIED DEMENTIA WITHOUT BEHAVIORAL 10/03/2016 LESTER MCMANUS, MIKY Salmon Ot F32.9 MAJOR DEPRESSIVE DISORDER, SINGLE EPISOD 10/03/2016 LESTER MCMANUS, MIKY Salmon Ot I12.9 HYPERTENSIVE CHRONIC KIDNEY DISEASE W ST 10/03/2016 LESTER MCMANUS, MIKY Salmon Ot I25.10 ATHSCL HEART DISEASE OF [place] CORONARY 10/03/2016 LESTER MCMANUS, MIKY Salmon Ot N18.9 CHRONIC KIDNEY DISEASE, UNSPECIFIED 10/03/2016 LESTER MCMANUS, MIKY Salmon Ot R41.82 ALTERED MENTAL STATUS, UNSPECIFIED 10/03/2016 LESTER MCMANUS, MIKY Salmon Ot R56.9 UNSPECIFIED CONVULSIONS 10/03/2016 LESTER MCMANUS, MIKY Salmon Ot Z79.82 PLANT HEALTH MANAGER (CURRENT) USE OF ASPIRIN 10/03/2016 LESTER MCMANUS, MIKY Salmon Ot Z86.79 PERSONAL HISTORY OF OTHER DISEASES OF 10/03/2016 LESTER MCMANUS, MIKY Salmon Ot Z87.438 PERSONAL HISTORY OF OTHER DISEASES OF [place] 10/03/2016 LESTER MCMANUS, MIKY Salmon Ot Z95.2 PRESENCE OF PROSTHETIC HEART VALVE 10/03/2016 MIKY BATISTA MD Ot Z95.5 PRESENCE OF CORONARY ANGIOPLASTY IMPLANT 10/05/2016 MIKY BATISTA MD Ot E78.00 PURE HYPERCHOLESTEROLEMIA, UNSPECIFIED 10/05/2016 LESTER MCMANUS, MIKY Salmon Ot F03.90 UNSPECIFIED DEMENTIA WITHOUT BEHAVIORAL 10/05/2016 LESTERMIKY [place] MD Ot F32.9 MAJOR DEPRESSIVE DISORDER, SINGLE EPISOD 10/05/2016 MIKY BATISTA MD Ot I12.9 HYPERTENSIVE CHRONIC KIDNEY DISEASE W ST 10/05/2016 MIKY BATISTA MD Ot I25.10 ATHSCL HEART DISEASE OF [place] CORONARY 10/05/2016 MIKY BATISTA MD Ot N18.9 CHRONIC KIDNEY DISEASE, UNSPECIFIED 10/05/2016 MIKY BATISTA MD Ot R41.82 ALTERED MENTAL STATUS, UNSPECIFIED 10/05/2016 MIKY BATISTA MD Ot R56.9 UNSPECIFIED CONVULSIONS 10/05/2016 MIKY BATISTA MD Ot Z79.82 PLANT HEALTH MANAGER (CURRENT) USE OF ASPIRIN 10/05/2016 MIKY BATISTA MD Ot Z86.79 PERSONAL HISTORY OF OTHER DISEASES OF [place] 10/05/2016 MIKY BATISTA MD Ot Z87.438 PERSONAL HISTORY OF OTHER DISEASES OF [place] 10/05/2016 MIKY BATISTA MD Ot Z95.2 PRESENCE OF PROSTHETIC HEART VALVE 10/05/2016 MIKY BATISTA MD Ot Z95.5 PRESENCE OF CORONARY ANGIOPLASTY IMPLANT 03/07/2017 LUIS CONWAY MD Ot E78.2 MIXED HYPERLIPIDEMIA 03/07/2017 LUIS CONWAY MD Ot E78.5 HYPERLIPIDEMIA, UNSPECIFIED 03/07/2017 LUIS CONWAY MD Ot I10 ESSENTIAL (PRIMARY) HYPERTENSION 03/07/2017 LUIS CONWAY MD Ot I25.10 ATHSCL HEART DISEASE OF [place] CORONARY 03/07/2017 LUIS CONWAY MD Ot I27.20 PULMONARY HYPERTENSION, UNSPECIFIED 03/07/2017 LUIS CONWAY MD Ot I35.0 NONRHEUMATIC AORTIC (VALVE) STENOSIS 03/07/2017 LUIS CONWAY MD Ot 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 03/07/2017 LUIS CONWAY MD Ot I71.4 ABDOMINAL AORTIC ANEURYSM, WITHOUT RUPTU 03/25/2017 LUIS CONWAY MD Ot E78.2 MIXED HYPERLIPIDEMIA 03/25/2017 LUIS CONWAY MD Ot E78.5 HYPERLIPIDEMIA, UNSPECIFIED 03/25/2017 LUIS CONWAY MD Ot I10 ESSENTIAL (PRIMARY) HYPERTENSION 03/25/2017 LUIS CONWAY MD Ot I25.10 ATHSCL HEART DISEASE OF [place] CORONARY 03/25/2017 LUIS CONWAY MD Ot I27.20 PULMONARY HYPERTENSION, UNSPECIFIED 03/25/2017 LUIS CONWAY MD Ot I35.0 NONRHEUMATIC AORTIC (VALVE) STENOSIS 03/25/2017 LUIS CONWAY MD Ot 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 03/25/2017 LUIS CONWAY MD Ot I71.4 ABDOMINAL AORTIC ANEURYSM, WITHOUT RUPTU 03/30/2017 LUIS CONWAY MD Ot E78.2 MIXED HYPERLIPIDEMIA 03/30/2017 LUIS CONWAY MD Ot E78.5 HYPERLIPIDEMIA, UNSPECIFIED 03/30/2017 LUIS CONWAY MD Ot I10 ESSENTIAL (PRIMARY) HYPERTENSION 03/30/2017 LUIS CONWAY MD, Ot I25.10 ATHSCL HEART DISEASE OF [place] CORONARY 03/30/2017 LUIS CONWAY MD Ot I27.20 PULMONARY HYPERTENSION, UNSPECIFIED 03/30/2017 LUIS CONWAY MD Ot I35.0 NONRHEUMATIC AORTIC (VALVE) STENOSIS 03/30/2017 LUIS CONWAY MD Ot 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 03/30/2017 LUIS CONWAY MD Ot I71.4 ABDOMINAL AORTIC ANEURYSM, WITHOUT RUPTU Procedures Code Description Performed By Performed On A0425 GROUND MILEAGE 09/03/2015 A0427 ALS1-EMERGENCY 09/03/2015 A0888 NONCOVERED AMBULANCE MILEAGE 09/03/2015 92406 ROUTINE VENIPUNCTURE 09/04/2015 17634 CHEST X-RAY 09/04/2015 35905 COMPREHEN METABOLIC PANEL 09/04/2015 75341 ASSAY OF CK (CPK) 09/04/2015 50246 CREATINE, MB FRACTION 09/04/2015 23494 NATRIURETIC PEPTIDE 09/04/2015 36145 ASSAY OF TROPONIN, QUANT 09/04/2015 41812 COMPLETE CBC, AUTOMATED 09/04/2015 80545 ELECTROCARDIOGRAM, TRACING 09/04/2015 70456 ELECTROCARDIOGRAM REPORT 09/04/2015 51565 THER/PROPH/DIAG INJ, SC/IM 09/04/2015 14278 EMERGENCY DEPT VISIT 09/04/2015 J1650 INJ ENOXAPARIN SODIUM 09/04/2015 A0425 GROUND MILEAGE 09/04/2015 A0426 ALS 1 09/04/2015 Results Test Result Range Bacterial blood culture - 08/31/15 10:57 Bacterial blood culture NG NRG Bacterial blood culture - 08/31/15 11:28 Bacterial blood culture NG NRG CBC - 09/03/15 00:00 HCT 28.0 % 41.9-52.0 HGB 8.9 G/DL 13.0-18.0 MCH 32.0 PG 27-31 MCHC 31.8 G/DL 33-37 MCV 100.7 FL 80-94 MPV 10.2 FL 7.3-10.4 PLT 118 10^3u 130-400 RBC 2.8 10^6u 4.7-6.1 RDW 15.4 % 11.5-15.5 WBC 4.7 10^3u 4.8-10.8 TROP - 09/03/15 00:00 TROP 0.03 NG/ML 0.0-0.4 PRO-BNP - 09/03/15 00:00 PRO-BNP 7940 PG/ML 0-900 CKMB - 09/03/15 00:00 CKMB 0.8 NG/ML 0-3.6 CK - 09/03/15 00:00 CK 27 IU/L 39-308 CMP - 09/03/15 00:00 ALB 2.8 G/DL 3.5-5 ALP 59 IU/L 39-107 ALT 44 IU/L 12-65 AST 41 IU/L 10-42 BCR 16.2 10-20 BUN 26 MG/DL 7-18 CA 8.2 MG/DL 8.4-10.2 CL 106 MEQ/L 98-107 CO2 33.6 MEQ/L 22-28 CREA 1.60 MG/DL 0.6-1.3 EGFR 42 eGFR >=60 GLU 123 MG/DL 70-105 K 4.7 MEQ/L 3.5-5.1 NA 143 MEQ/L 134-145 OSMSC 291.1 MOSML 280-300 TBIL 0.5 MG/DL 0.1-1.0 TP 7.9 G/DL 6.0-8.3 Albumin/Globulin Ratio 0.5 0-8 Anion Gap 3.4 8-16 Complete blood count (CBC) with automated white blood cell (WBC) differential - 12/23/15 17:42 Blood leukocytes automated count (number/volume) 4.1 10*3/uL 4.3-11.0 Blood erythrocytes automated count (number/volume) 3.71 10*6/uL 4.35-5.85 Venous blood hemoglobin measurement (mass/volume) 10.8 g/dL 13.3-17.7 Blood hematocrit (volume fraction) 34 % 40-54 Automated erythrocyte mean corpuscular volume 91 [foz_us] 80-99 Automated erythrocyte mean corpuscular hemoglobin (mass per erythrocyte) 29 pg 25-34 Automated erythrocyte mean corpuscular hemoglobin concentration measurement ( mass/volume) 32 g/dL 32-36 Automated erythrocyte distribution width ratio 16.5 % 10.0-14.5 Automated blood platelet count (count/volume) 113 10*3/uL 130-400 Automated blood platelet mean volume measurement 10.5 [foz_us] 7.4-10.4 Automated blood neutrophils/100 leukocytes 51 % 42-75 Automated blood lymphocytes/100 leukocytes 35 % 12-44 Blood monocytes/100 leukocytes 12 % 0-12 Automated blood eosinophils/100 leukocytes 2 % 0-10 Automated blood basophils/100 leukocytes 0 % 0-10 Blood neutrophils automated count (number/volume) 2.1 10*3 1.8-7.8 Blood lymphocytes automated count (number/volume) 1.4 10*3 1.0-4.0 Blood monocytes automated count (number/volume) 0.5 10*3 0.0-1.0 Automated eosinophil count 0.1 10*3/uL 0.0-0.3 Automated blood basophil count (count/volume) 0.0 10*3/uL 0.0-0.1 PT panel in platelet poor plasma by coagulation assay - 12/23/15 17:42 Prothrombin time (PT) in platelet poor plasma by coagulation assay 14.1 s 12.2-14.7 INR in platelet poor plasma or blood by coagulation assay 1.1 0.8-1.4 Activated partial thromboplastin time (aPTT) in platelet poor plasma bycoagulation assay - 12/23/15 17:42 Activated partial thromboplastin time (aPTT) in platelet poor plasma bycoagulation assay 28 s 24-35 Comprehensive metabolic panel - 12/23/15 17:42 Serum or plasma sodium measurement (moles/volume) 135 mmol/L 135-145 Serum or plasma potassium measurement (moles/volume) 3.9 mmol/L 3.6-5.0 Serum or plasma chloride measurement (moles/volume) 97 mmol/L 98-107 Carbon dioxide 29 mmol/L 21-32 Serum or plasma anion gap determination (moles/volume) 9 mmol/L 5-14 Serum or plasma urea nitrogen measurement (mass/volume) 43 mg/dL 7-18 Serum or plasma creatinine measurement (mass/volume) 1.95 mg/dL 0.60-1.30 Serum or plasma urea nitrogen/creatinine mass ratio 22 NRG Serum or plasma creatinine measurement with calculation of estimated glomerular filtration rate 34 NRG Serum or plasma glucose measurement (mass/volume) 104 mg/dL 70-105 Serum or plasma calcium measurement (mass/volume) 8.8 mg/dL 8.5-10.1 Serum or plasma total bilirubin measurement (mass/volume) 0.4 mg/dL 0.1-1.0 Serum or plasma alkaline phosphatase measurement (enzymatic activity/volume) 57 U/L 40-136 Serum or plasma aspartate aminotransferase measurement (enzymatic activity/ volume) 31 U/L 5-34 Serum or plasma alanine aminotransferase measurement (enzymatic activity/volume ) 23 U/L 0-55 Serum or plasma protein measurement (mass/volume) 8.5 g/dL 6.4-8.2 Serum or plasma albumin measurement (mass/volume) 3.5 g/dL 3.2-4.5 Serum or plasma troponin i.cardiac measurement (mass/volume) - 12/23/15 17:42 Serum or plasma troponin i.cardiac measurement (mass/volume) < ng/ mL <0.30 Serum or plasma ethanol measurement (mass/volume) - 12/23/15 17:42 Serum or plasma ethanol measurement (mass/volume) < mg/dL <10 Serum or plasma lithium measurement (moles/volume) - 12/23/15 17:42 BNP level 319.5 pg/mL <100.0 Magnesium - 12/23/15 17:52 Magnesium 2.0 mg/dL 1.8-2.4 Complete urinalysis with reflex to culture - 12/23/15 18:35 Urine color determination YELLOW NRG Urine clarity determination CLEAR NRG Urine pH measurement by test strip 5 5-9 Specific gravity of urine by test strip 1.020 1.016- 1.022 Urine protein assay by test strip, semi-quantitative 3+ NEGATIVE Urine glucose detection by automated test strip NEGATIVE NEGATIVE Erythrocytes detection in urine sediment by light microscopy 5+ NEGATIVE Urine ketones detection by automated test strip NEGATIVE NEGATIVE Urine nitrite detection by test strip NEGATIVE NEGATIVE Urine total bilirubin detection by test strip NEGATIVE NEGATIVE Urine urobilinogen measurement by automated test strip (mass/volume) NORMAL NORMAL Urine leukocyte esterase detection by dipstick 1+ NEGATIVE Automated urine sediment erythrocyte count by microscopy (number/high power field) [HPF] NRG Automated urine sediment leukocyte count by microscopy (number/high power field ) RARE NRG Bacteria detection in urine sediment by light microscopy TRACE NRG Squamous epithelial cells detection in urine sediment by light microscopy 2-5 NRG Crystals detection in urine sediment by light microscopy NONE NRG Casts detection in urine sediment by light microscopy NONE NRG Mucus detection in urine sediment by light microscopy SMALL NRG Complete urinalysis with reflex to culture NO NRG Urine Culture - 12/25/15 16:06 PRELIM CULTURE RESULTS >100,000 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 GLENDA / ID to Follow MEDIA PLATED Setup at 17:25 on 12/25/2015 CULTURE SOURCE [id number]\ Sensi - 12/25/15 16:06 FINAL CULTURE RESULTS Citrobacter freundii complex (Isolate 1) Ampicillin/Sulbactam >16/8 Ampicillin >16 Amoxicillin/K Clavulanate 16/8 Ceftriaxone <=8 Ciprofloxacin 2 Nitrofurantoin <=32 Gentamicin >8 Levofloxacin <=2 Trimethoprim/ Sulfamethoxazole >2/38 Tetracycline >8 Amikacin <=16 Aztreonam <=8 Ceftazidime <=1 Ceftazidime/K Clavulanate <=0.25 Cephalothin >16 Cefotaxime <=2 Cefotaxime/K Clavulanate <=0.5 Cefoxitin >16 Cefazolin 16 Cefepime <=8 Cefuroxime 8 Ertapenem <=1 Imipenem <=4 Meropenem <=4 Piperacillin/Tazobactam <=16 Piperacillin 64 Tigecycline <=2 Tobramycin 8 Urinalysis - 01/12/16 16:12 Icotest N/A Negative Urine Volume Urine Volume Sufficient (10mL) Urine-Appearance Clear Clear Urine-Bacteria Trace Urine-Bilirubin Negative Negative Urine-Blood 2+ Negative Urine-Color Yellow Colorless-Lt. Yellow Urine-Glucose Negative Negative Urine-Ketones Negative Negative Urine-Leukocytes Negative Negative Urine-Nitrite Negative Negative Urine-Other Culture to follow Urine-pH 6.5 5-8.5 Urine-Protein Trace Negative Urine-RBC 10-20/HPF Urine-Specific [place] 1.020 1.000-1.030 Urine-WBC 0-2/HPF Urobilinogen 0.2 E.U./dL 0.2-1.0 Urine Culture - 01/12/16 16:12 PRELIM CULTURE RESULTS No Growth 24 hours FINAL CULTURE RESULTS <10,000 Gram Positive Mixed Brenda [id number] Skin [id number] Further Workup done MEDIA PLATED Setup at 16:53 on 01/12/2016 CULTURE SOURCE [id number] BMP - 01/18/16 14:11 Anion Gap 17 6-14 BUN 38 mg/dL 5-25 Calcium 9.0 mg/dL 8.3-10.4 Chloride 100 mmol/L 95-114 CO2 27 mEq/L 22-33 Creat 1.54 mg/dL 0.50-1.50 eGFR 44 mL/min/1.73m2 >59 Glucose 92 mg/dL 70-110 Osmo 295 280-295 Potassium 4.6 mmol/L 3.5-5.3 Sodium 139 mmol/L 134-148 Urinalysis - 01/26/16 11:38 Icotest N/A Negative Urine Volume Urine Volume Sufficient (10mL) Urine Yeast No Yeast present Urine-Appearance Clear Clear Urine-Bacteria Negative Urine-Bilirubin Negative Negative Urine-Blood 2+ Negative Urine-Color Yellow Colorless-Lt. Yellow Urine-Glucose Negative Negative Urine-Ketones Negative Negative Urine-Leukocytes Negative Negative Urine-Nitrite Negative Negative Urine-Other Urine Saved if Culture Needed (48hrs from time of collection) Urine-pH 7.5 5-8.5 Urine-Protein 2+ Negative Urine-RBC TNTC Urine-Specific [place] 1.020 1.000-1.030 Urine-WBC Rare/HPF Urobilinogen 0.2 E.U./dL 0.2-1.0 Urine Culture - 01/27/16 17:08 PRELIM CULTURE RESULTS No Growth 24 hours FINAL CULTURE RESULTS 20,000-50,000 Gram Positive Mixed Brenda [id number] Skin [id number] No Further Workup done CULTURE SOURCE void Urinalysis - 02/18/16 17:09 Icotest N/A Negative Urine Casts 2-5 Hyaline Urine Volume Urine Volume Sufficient (10mL) Urine Yeast No Yeast present Urine-Appearance Clear Clear Urine-Bacteria Negative Urine-Bilirubin Negative Negative Urine-Blood 3+ Negative Urine-Color Yellow Colorless-Lt. Yellow Urine-Glucose Negative Negative Urine-Ketones Negative Negative Urine-Leukocytes Negative Negative Urine-Mucus 1+ Urine-Nitrite Negative Negative Urine-Other Urine Saved if Culture Needed (48hrs from time of collection) Urine-pH 5.0 5-8.5 Urine-Protein 3+ Negative Urine-RBC 0-2/HPF Urine-Specific [place] 1.025 1.000-1.030 Urine-WBC Nothing Seen on Microscopic Urobilinogen 0.2 E.U./dL 0.2-1.0 BNP - 02/18/16 18:02 BNP 616.00 pg/ml 0.00-100.00 Complete blood count (CBC) with automated white blood cell (WBC) differential - 02/26/16 11:47 Blood leukocytes automated count (number/volume) 3.7 10*3/uL 4.3-11.0 Blood erythrocytes automated count (number/volume) 3.59 10*6/uL 4.35-5.85 Venous blood hemoglobin measurement (mass/volume) 11.1 g/dL 13.3-17.7 Blood hematocrit (volume fraction) 33 % 40-54 Automated erythrocyte mean corpuscular volume 93 [foz_us] 80-99 Automated erythrocyte mean corpuscular hemoglobin (mass per erythrocyte) 31 pg 25-34 Automated erythrocyte mean corpuscular hemoglobin concentration measurement ( mass/volume) 33 g/dL 32-36 Automated erythrocyte distribution width ratio 14.8 % 10.0-14.5 Automated blood platelet count (count/volume) 109 10*3/uL 130-400 Automated blood platelet mean volume measurement 10.7 [foz_us] 7.4-10.4 Automated blood neutrophils/100 leukocytes 53 % 42-75 Automated blood lymphocytes/100 leukocytes 33 % 12-44 Blood monocytes/100 leukocytes 11 % 0-12 Automated blood eosinophils/100 leukocytes 3 % 0-10 Automated blood basophils/100 leukocytes 0 % 0-10 Blood neutrophils automated count (number/volume) 2.0 10*3 1.8-7.8 Blood lymphocytes automated count (number/volume) 1.2 10*3 1.0-4.0 Blood monocytes automated count (number/volume) 0.4 10*3 0.0-1.0 Automated eosinophil count 0.1 10*3/uL 0.0-0.3 Automated blood basophil count (count/volume) 0.0 10*3/uL 0.0-0.1 Comprehensive metabolic panel - 02/26/16 11:47 Serum or plasma sodium measurement (moles/volume) 138 mmol/L 135-145 Serum or plasma potassium measurement (moles/volume) 4.3 mmol/L 3.6-5.0 Serum or plasma chloride measurement (moles/volume) 100 mmol/L 98-107 Carbon dioxide 31 mmol/L 21-32 Serum or plasma anion gap determination (moles/volume) 7 mmol/L 5-14 Serum or plasma urea nitrogen measurement (mass/volume) 39 mg/dL 7-18 Serum or plasma creatinine measurement (mass/volume) 1.44 mg/dL 0.60-1.30 Serum or plasma urea nitrogen/creatinine mass ratio 27 NRG Serum or plasma creatinine measurement with calculation of estimated glomerular filtration rate 47 NRG Serum or plasma glucose measurement (mass/volume) 84 mg/dL 70-105 Serum or plasma calcium measurement (mass/volume) 8.9 mg/dL 8.5-10.1 Serum or plasma total bilirubin measurement (mass/volume) 0.5 mg/dL 0.1-1.0 Serum or plasma alkaline phosphatase measurement (enzymatic activity/volume) 52 U/L 40-136 Serum or plasma aspartate aminotransferase measurement (enzymatic activity/ volume) 20 U/L 5-34 Serum or plasma alanine aminotransferase measurement (enzymatic activity/volume ) 20 U/L 0-55 Serum or plasma protein measurement (mass/volume) 8.1 g/dL 6.4-8.2 Serum or plasma albumin measurement (mass/volume) 3.4 g/dL 3.2-4.5 THYROID STIMULATING HORMONE - 02/26/16 11:47 THYROID STIMULATING HORMONE 1.94 u[iU]/mL 0.35-4.94 Cyanocobalamin measurement - 02/26/16 11:47 Vitamin B12 692 pg/mL 200-1000 Blood CBC with ordered manual differential panel - 03/02/16 14:12 Blood leukocytes automated count (number/volume) 3.8 10*3/uL 4.3-11.0 Blood erythrocytes automated count (number/volume) 3.45 10*6/uL 4.35-5.85 Venous blood hemoglobin measurement (mass/volume) 10.6 g/dL 13.3-17.7 Blood hematocrit (volume fraction) 32 % 40-54 Automated erythrocyte mean corpuscular volume 92 [foz_us] 80-99 Automated erythrocyte mean corpuscular hemoglobin (mass per erythrocyte) 31 pg 25-34 Automated erythrocyte mean corpuscular hemoglobin concentration measurement ( mass/volume) 33 g/dL 32-36 Automated erythrocyte distribution width ratio 14.6 % 10.0-14.5 Automated blood platelet count (count/volume) 98 10*3/uL 130-400 Automated blood platelet mean volume measurement 10.6 [foz_us] 7.4-10.4 Automated blood neutrophils/100 leukocytes 56 % 42-75 Automated blood lymphocytes/100 leukocytes 28 % 12-44 Blood monocytes/100 leukocytes 7 % NRG Automated blood eosinophils/100 leukocytes 2 % 0-10 Automated blood basophils/100 leukocytes 0 % 0-10 Blood neutrophils automated count (number/volume) 2.1 10*3 1.8-7.8 Blood lymphocytes automated count (number/volume) 1.1 10*3 1.0-4.0 Blood monocytes automated count (number/volume) 0.5 10*3 0.0-1.0 Automated eosinophil count 0.1 10*3/uL 0.0-0.3 Automated blood basophil count (count/volume) 0.0 10*3/uL 0.0-0.1 Manual blood segmented neutrophils/100 leukocytes 59 % NRG Blood band neutrophils/100 leukocytes 1 % NRG Manual blood lymphocytes/100 leukocytes 32 % NRG Manual eosinophils/100 leukocytes in nose 1 % NRG Manual blood basophils/100 leukocytes 0 % NRG Blood erythrocyte morphology finding identification NORMAL NRG Automated reticulocyte percentage - 03/02/16 14:12 Blood reticulocytes count (number/volume) 28 10*9/L 24- 90 Blood reticulocytes/100 erythrocytes 0.82 % 0.50-2.40 Urinalysis - 04/30/16 18:30 Icotest N/A Negative Urine Volume Urine Volume Sufficient (10mL) Urine Yeast No Yeast present Urine-Appearance Clear Clear Urine-Bacteria Negative Urine-Bilirubin Negative Negative Urine-Blood 2+ Negative Urine-Color Yellow Colorless-Lt. Yellow Urine-Glucose Negative Negative Urine-Ketones Negative Negative Urine-Leukocytes Negative Negative Urine-Nitrite Negative Negative Urine-Other Urine Saved if Culture Needed (48hrs from time of collection) Urine-pH 7.0 5-8.5 Urine-Protein 3+ Negative Urine-RBC 10-20/HPF Urine-Specific [place] 1.025 1.000-1.030 Urine-WBC Negative Urobilinogen 0.2 0.2-1.0 Urinalysis - 06/30/16 09:38 Icotest N/A Negative Urine Volume Urine Volume Sufficient (10mL) Urine-Appearance Clear Clear Urine-Bacteria Negative Urine-Bilirubin Negative Negative Urine-Blood 3+ Negative Urine-Color Yellow Colorless-Lt. Yellow Urine-Epithelial Cells 0-5/HPF Urine-Glucose Negative Negative Urine-Ketones Negative Negative Urine-Leukocytes Negative Negative Urine-Nitrite Negative Negative Urine-Other Urine Saved if Culture Needed (48hrs from time of collection) Urine-pH 6.0 5-8.5 Urine-Protein 3+ Negative Urine-RBC 10-20/HPF Urine-Specific [place] 1.020 1.000-1.030 Urine-WBC 0-2/HPF Urobilinogen 0.2 0.2-1.0 Urine Culture - 06/30/16 09:38 PRELIM CULTURE RESULTS No Growth 24 hours FINAL CULTURE RESULTS No Growth 48 hours MEDIA PLATED Setup at 09:48 on 06/30/2016 CULTURE SOURCE clean catch urine Complete urinalysis with reflex to culture - 10/02/16 15:30 Urine color determination YELLOW NRG Urine clarity determination CLEAR NRG Urine pH measurement by test strip 5 5-9 Specific gravity of urine by test strip 1.010 1.016- 1.022 Urine protein assay by test strip, semi-quantitative 3+ NEGATIVE Urine glucose detection by automated test strip NEGATIVE NEGATIVE Erythrocytes detection in urine sediment by light microscopy 5+ NEGATIVE Urine ketones detection by automated test strip NEGATIVE NEGATIVE Urine nitrite detection by test strip NEGATIVE NEGATIVE Urine total bilirubin detection by test strip NEGATIVE NEGATIVE Urine urobilinogen measurement by automated test strip (mass/volume) NORMAL NORMAL Urine leukocyte esterase detection by dipstick NEGATIVE NEGATIVE Automated urine sediment erythrocyte count by microscopy (number/high power field) [HPF] NRG Automated urine sediment leukocyte count by microscopy (number/high power field ) NONE NRG Bacteria detection in urine sediment by light microscopy NEGATIVE NRG Squamous epithelial cells detection in urine sediment by light microscopy NONE NRG Crystals detection in urine sediment by light microscopy NONE NRG Casts detection in urine sediment by light microscopy NONE NRG Mucus detection in urine sediment by light microscopy NEGATIVE NRG Complete urinalysis with reflex to culture NO NRG Complete blood count (CBC) with automated white blood cell (WBC) differential - 10/02/16 16:50 Blood leukocytes automated count (number/volume) 4.3 10*3/uL 4.3-11.0 Blood erythrocytes automated count (number/volume) 2.97 10*6/uL 4.35-5.85 Venous blood hemoglobin measurement (mass/volume) 9.4 g/dL 13.3-17.7 Blood hematocrit (volume fraction) 29 % 40-54 Automated erythrocyte mean corpuscular volume 96 [foz_us] 80-99 Automated erythrocyte mean corpuscular hemoglobin (mass per erythrocyte) 32 pg 25-34 Automated erythrocyte mean corpuscular hemoglobin concentration measurement ( mass/volume) 33 g/dL 32-36 Automated erythrocyte distribution width ratio 13.1 % 10.0-14.5 Automated blood platelet count (count/volume) 60 10*3/uL 130-400 Automated blood platelet mean volume measurement 11.6 [foz_us] 7.4-10.4 Automated blood neutrophils/100 leukocytes 52 % 42-75 Automated blood lymphocytes/100 leukocytes 30 % 12-44 Blood monocytes/100 leukocytes 14 % 0-12 Automated blood eosinophils/100 leukocytes 3 % 0-10 Automated blood basophils/100 leukocytes 1 % 0-10 Blood neutrophils automated count (number/volume) 2.2 10*3 1.8-7.8 Blood lymphocytes automated count (number/volume) 1.3 10*3 1.0-4.0 Blood monocytes automated count (number/volume) 0.6 10*3 0.0-1.0 Automated eosinophil count 0.1 10*3/uL 0.0-0.3 Automated blood basophil count (count/volume) 0.0 10*3/uL 0.0-0.1 PT panel in platelet poor plasma by coagulation assay - 10/02/16 16:50 Prothrombin time (PT) in platelet poor plasma by coagulation assay 17.5 s 12.2-14.7 INR in platelet poor plasma or blood by coagulation assay 1.4 0.8-1.4 Comprehensive metabolic panel - 10/02/16 16:50 Serum or plasma sodium measurement (moles/volume) 137 mmol/L 135-145 Serum or plasma potassium measurement (moles/volume) 4.5 mmol/L 3.6-5.0 Serum or plasma chloride measurement (moles/volume) 100 mmol/L 98-107 Carbon dioxide 25 mmol/L 21-32 Serum or plasma anion gap determination (moles/volume) 12 mmol/L 5-14 Serum or plasma urea nitrogen measurement (mass/volume) 74 mg/dL 7-18 Serum or plasma creatinine measurement (mass/volume) 2.74 mg/dL 0.60-1.30 Serum or plasma urea nitrogen/creatinine mass ratio 27 NRG Serum or plasma creatinine measurement with calculation of estimated glomerular filtration rate 23 NRG Serum or plasma glucose measurement (mass/volume) 90 mg/dL 70-105 Serum or plasma calcium measurement (mass/volume) 8.8 mg/dL 8.5-10.1 Serum or plasma total bilirubin measurement (mass/volume) 0.4 mg/dL 0.1-1.0 Serum or plasma alkaline phosphatase measurement (enzymatic activity/volume) 55 U/L 40-136 Serum or plasma aspartate aminotransferase measurement (enzymatic activity/ volume) 23 U/L 5-34 Serum or plasma alanine aminotransferase measurement (enzymatic activity/volume ) 18 U/L 0-55 Serum or plasma protein measurement (mass/volume) 8.2 g/dL 6.4-8.2 Serum or plasma albumin measurement (mass/volume) 3.4 g/dL 3.2-4.5 Serum or plasma troponin i.cardiac measurement (mass/volume) - 10/02/16 16:50 Serum or plasma troponin i.cardiac measurement (mass/volume) < ng/ mL <0.30 Serum or plasma lithium measurement (moles/volume) - 10/02/16 16:50 BNP level 488.6 pg/mL <100.0 Fibrin D-dimer FEU measurement in platelet poor plasma (mass/volume) - 16:50 Fibrin D-dimer FEU measurement in platelet poor plasma (mass/volume) > ug/mL 0.00-0.49 Encounters ACCT No. Visit Date/Time Discharge Status Pt. Type Provider Facility Loc./Unit Complaint [id number] 03/04/2017 11:13:00 03/04/2017 23:59:59 CLS Outpatient MAN MCMANUS, LUIS [facility] CARD I35.0 AORTIC STENOSIS [id number] 10/02/2016 16:46:00 10/02/2016 18:28:00 DIS Emergency MIKY BATISTA MD [facility] ER AMS [id number] 03/02/2016 16:04:00 03/02/2016 23:59:59 CLS Outpatient JEFF GARZON [facility] LAB PANCYTOPENIA [id number] 02/26/2016 11:09:00 02/26/2016 23:59:59 CLS Outpatient JEFF GARZON [facility] RAD INCREASED CONFUSION ,HIP PAIN,R41.0 [id number] 12/23/2015 17:37:00 12/23/2015 21:13:00 DIS Emergency SHANNON MCMANUS, HERIBERTO Jimenez [facility] ER DIZZINESS [id number] 09/02/2015 13:57:00 09/02/2015 15:53:00 DIS Emergency KIKA HERNANDEZ [facility] ER KNOT ON LEFT GROIN INCISION SITE [id number] 08/22/2015 11:16:00 08/22/2015 23:59:59 CLS Outpatient JEFF GARZON [facility] RAD L INGUINAL HERNIA, TENDERNESS, LARGER IN SIZE [id number] 05/02/2015 08:10:00 05/02/2015 23:59:59 CLS Outpatient ROBBIN MARTINEZ MD [facility] SDC LOW HGB [id number] 04/22/2015 15:32:00 04/22/2015 23:59:59 CLS Outpatient ROBBIN MARTINEZ MD [facility] RAD POST OP HEMATOMA- GROIN SWELLING, ANEMIA,WEAKNESS [id number] 08/31/2015 09:20:00 Document Registration [id number] 10/08/2016 12:59:45 10/08/2016 23:59:59 CLS Outpatient [id number] 09/04/2015 22:04:00 09/04/2015 22:04:00 DIS Outpatient MIKY ELIZALDE [facility] EMR [id number] 09/03/2015 22:21:00 09/04/2015 00:34:00 DIS Emergency MONIQUE ZABALA Ricco [facility] EMR [id number] 09/03/2015 21:47:00 09/03/2015 21:47:00 DIS Outpatient MIKY ELIZALDE [facility] EMR [id number] 01/06/2015 00:00:00 Document Registration [id number] 06/30/2016 09:37:00 06/30/2016 23:59:00 DIS Outpatient ROBBIN MARTINEZ [id number] 04/30/2016 18:30:00 04/30/2016 23:59:00 DIS Outpatient ROBBIN MARTINEZ [id number] 02/18/2016 17:08:00 02/18/2016 18:35:00 DIS Outpatient Mary [facility] [id number] 01/26/2016 12:25:00 01/26/2016 23:59:00 DIS Outpatient ROBBIN MARTINEZ [id number] 01/18/2016 14:06:00 01/18/2016 23:59:00 DIS Outpatient KIKA YIP [id number] 01/12/2016 15:59:00 01/12/2016 23:59:00 DIS Outpatient ROBBIN MARTINEZ [id number] 12/25/2015 16:05:00 12/25/2015 23:59:00 DIS Outpatient ROBBIN MARTINEZ [id number] 10/02/2016 23:00:00 10/02/2016 23:59:59 DIS Outpatient MIKY ELIZALDE [facility]
--- NOTE | 2017-05-24 18:29 | ED Upper Extremity ---
General Chief Complaint: Upper Extremity Stated Complaint: R ARM PAIN Nursing Triage Note: PATIENT STATES HE HAS BEEN HAVING RIGHT UPPER ARM PAIN OFF AND ON FOR "A WHILE" BUT YESTERDAY IT STARTED HURTING WORSE THAN USUAL. HE DOES NOT RECALL EVER INJURING HIS ARM BUT FAMILY STATES THAT THEY THINK HE MAY HAVE. Nursing Sepsis Screen: No Definite Risk Source: patient Exam Limitations: no limitations History of Present Illness Date Seen by Provider: May 24, 2017 Time Seen by Provider: 18:28 Initial Comments To ER complaint by daughter with reports of right arm pain that began yesterday. Patient lives at home and is demented her baseline but he does have usuddw-qek-nlqqb care. He does not recall falling nor did anyone see him fall. However, daughter assist him today and noticed some bruising to the right scapular region and the posterior right upper arm. Onset: this morning Severity: moderate Pain/Injury Location: right shoulder, right arm Modifying Factors: Worse With Movement Allergies and Home Medications Allergies Coded Allergies: cortisone (Verified Allergy, Unknown, 05/02/15) iodine (Verified Allergy, Unknown, 05/02/15) latex (Verified Allergy, Unknown, 05/02/15) Uncoded Allergies: DOPPLER GEL (Allergy, Unknown, 05/02/15) Home Medications Alprazolam 0.25 Mg Tablet, 0.25 MG PO HS Prescribed by: MARCUS QUINTANA on 05/02/15912 Amlodipine Besylate 5 Mg Tablet, 5 MG PO DAILY, (Reported) Aspirin 81 Mg Tablet.dr, 81 MG PO DAILY Prescribed by: MARCUS QUINTANA on 05/02/15912 Atorvastatin Calcium 20 Mg Tablet, 20 MG PO DAILY Prescribed by: MARCUS QUINTANA on 05/02/15912 Calcium Citrate/Vitamin D3 1 Each Tablet, 1 EACH PO DAILY Prescribed by: MARCUS QUINTANA on 05/02/15912 Cetirizine HCl 10 Mg Tablet, 10 MG PO DAILY, (Reported) Escitalopram Oxalate 5 Mg Tablet, 5 MG PO HS Prescribed by: MARCUS QUINTANA on 05/02/15912 Furosemide 40 Mg Tablet, 40 MG PO DAILY Prescribed by: MARCUS QUINTANA on 05/02/15912 Hydrocodone/Acetaminophen 1 Each Tablet, 1 EACH PO TID, (Reported) Memantine HCl 28 Mg Cap.spr.24, 28 MG PO DAILY, (Reported) Pedi Mv No.79/Ferrous Fumarate 18 Mg Tab.chew, 18 MG PO DAILY, (Reported) Sennosides 8.6 Mg Capsule, 3 TAB PO DAILY Prescribed by: MARCUS QUINTANA on 05/02/15 0913 Spironolactone 25 Mg Tablet, 25 MG PO DAILY, (Reported) Tamsulosin HCl 0.4 Mg Cap, 0.4 MG PO DAILY, (Reported) Patient Home Medication List Home Medication List Reviewed: Yes Constitutional: see HPI EENTM: see HPI Respiratory: no symptoms reported Cardiovascular: no symptoms reported Genitourinary: no symptoms reported Musculoskeletal: see HPI Skin: no symptoms reported Past Xqzfyug-Exagof-Synoic Hx Patient Social History Alcohol Use: Denies Use Recreational Drug Use: No Smoking Status: Never a Smoker 2nd Hand Smoke Exposure: No Recent Foreign Travel: No Contact w/Someone Who Travel: No Recent Infectious Disease Expo: No Recent Hopitalizations: No Immunizations Up To Date Date of Pneumonia Vaccine: Feb 07, 2015 Date of Influenza Vaccine: Nov 08, 2015 Past Medical History Surgeries: Yes (valve replacement, stentX5) Abdominal, Coronary Stent, Orthopedic, Valve Replacement, Vascular Surgery Respiratory: Yes (suppose to wear 02 not compliant) Cardiac: Yes (CARDIAC TAMPONADE) Aneurysm, Coronary Artery Disease, High Cholesterol, Hypertension Neurological: Yes Dementia Reproductive Disorders: No Genitourinary: No Prostate Problems Gastrointestinal: No Musculoskeletal: Yes Chronic Back Pain Endocrine: No HEENT: No Cancer: No Psychosocial: Yes Depression Integumentary: No Physical Exam Vital Signs Vital Signs - First Documented 05/24/17 17:14 Temp 98.2 Pulse 63 Resp 18 B/P (MAP) 134/59 (84) Pulse Ox 99 Capillary Refill : Less Than 3 Seconds General Appearance: WD/WN, no apparent distress HEENT: PERRL/EOMI, normal ENT inspection Neck: non-tender, full range of motion Cardiovascular: regular rate, rhythm, no murmur Respiratory: chest non-tender, lungs clear, normal breath sounds, no respiratory distress, no accessory muscle use Gastrointestinal: normal bowel sounds, non tender, soft Shoulder: ecchymosis (purplish ecchymosis over the scapula on the right. Purplish ecchymosis to the posterior right numerous.) Neurologic/Psychiatric: alert, normal mood/affect, oriented x 3 Skin: normal color, warm/dry Progress/Results/Core Measures Lab Results Laboratory Tests Test 05/24/17 18:42 Range/Units White Blood Count 4.1 L 4.3-11.0 10^3/uL Red Blood Count 2.69 L 4.35-5.85 10^6/uL Hemoglobin 8.5 L 13.3-17.7 G/DL Hematocrit 26 L 40-54 % Mean Corpuscular Volume 97 80-99 FL Mean Corpuscular Hemoglobin 32 25-34 PG Mean Corpuscular Hemoglobin Concent 33 32-36 G/DL Red Cell Distribution Width 14.0 10.0-14.5 % Platelet Count 82 L 130-400 10^3/uL Mean Platelet Volume 11.3 H 7.4-10.4 FL Neutrophils (%) (Auto) 66 42-75 % Lymphocytes (%) (Auto) 20 12-44 % Monocytes (%) (Auto) 10 0-12 % Eosinophils (%) (Auto) 4 0-10 % Basophils (%) (Auto) 1 0-10 % Neutrophils # (Auto) 2.7 1.8-7.8 X 10^3 Lymphocytes # (Auto) 0.8 L 1.0-4.0 X 10^3 Monocytes # (Auto) 0.4 0.0-1.0 X 10^3 Eosinophils # (Auto) 0.2 0.0-0.3 10^3/uL Basophils # (Auto) 0.0 0.0-0.1 10^3/uL Prothrombin Time 17.5 H 12.2-14.7 SEC INR Comment 1.4 0.8-1.4 My Orders Orders - KIKA CARR APRN Saline Lock/Iv-Start (05/24/17 18:25) Cbc With Automated Diff (05/24/17 18:25) Protime With Inr (05/24/17 18:25) Ct Chest/Abdomen Wo (05/24/17 18:25) Humerus, Right, 2 Views (05/24/17 18:25) Forearm, Right, 2 Views (05/24/17 18:25) Basic Metabolic Panel (05/24/17 19:46) Vital Signs/I&O 05/24/17 17:14 Temp 98.2 Pulse 63 Resp 18 B/P (MAP) 134/59 (84) Pulse Ox 99 Blood Pressure Mean: 84 Diagonstic Imaging: CT Comments NAME: ANDIE BROOKS [facility] REC#: [id number] PT STATUS: REG ER : 1940 PHYSICIAN: KIKA CARR APRN ADMIT DATE: 05/24/17/ER Draft Date of Exam:05/24/17 CT CHEST/ABDOMEN WO PROCEDURE: CT chest and abdomen without contrast. TECHNIQUE: Axial images were obtained from the thoracic inlet through the iliac crest without the administration of intravenous contrast. INDICATION: Fall with bruising to the right upper chest. FINDINGS: CT chest: Evaluation of the mediastinum and great vessels is limited without intravenous contrast. No definite mediastinal hematoma is seen. No pericardial fluid is seen. There is a trace right pleural effusion. Coronary arteries are markedly calcified. No pneumothorax or parenchymal contusion is seen. Tiny nonspecific nodules within the right lower lobe are noted, images 42 and 43, largest 9 mm. The sternum is intact. The ribs appear to be intact. No thoracic spine fracture is seen. CT abdomen: No focal liver laceration is identified. There are small stones within the gallbladder. The pancreas and spleen are unremarkable. No adrenal mass is seen. The kidneys are unremarkable. The aorta is aneurysmal and contains an aortic stent graft. The aneurysm sac dimensions are 5.4 cm AP x 6.0 cm transverse. No periaortic fluid collection is seen to suggest leakage or rupture. The bowel loops are normal in caliber. There is no ascites. Bony structures are nonacute. IMPRESSION: 1. Small right pleural effusion. 2. No mediastinal hematoma, pulmonary contusion, or pneumothorax is identified. No acute bony abnormality is detected. 3. No evidence of abdominal visceral injury. 4. Cholelithiasis. 5. Infrarenal abdominal aortic aneurysm, treated with a stent graft. Dictated on workstation # [id number] Dict: 05/24/171918 Trans: 05/24/171927 [id number] [id number] Interpreted by: YAHIR JONES MD Electronically signed by: Departure Communication (Admissions) Daughter would like his kidney function checked out of curiosity because it's been a while since is been checked. However the patient does not want to wait. I 'll add this to the labs and call them if any concerning results. Impression Primary Impression: Contusion of upper back Disposition: 01 HOME, SELF-CARE Condition: Stable Departure-Patient Inst. Decision time for Depature: 19:32 Referrals: ROBBIN MARTINEZ MD (PCP/Family) Primary Care Physician Patient Instructions: Contusion (DC) Add. Discharge Instructions: 1. Return to ER for any concerns 2. Follow-up with her doctor next week 3. All discharge instructions reviewed with patient and/or family. Voiced understanding. Scripts Tramadol HCl (Ultram) 50 Mg Tablet 0.5-1 TAB PO Q6H PRN for PAIN-MODERATE, #10 TAB Prov: KIKA CARR APRN 05/24/17 Copy Copies To 1: ROBBIN MARTINEZ MD, PETER J APRN May 24, 2017 18:29
[2017-05-24 18:54] LABS: BASOPHILS % (AUTO) 1 % (0-10); EOSINOPHILS # (AUTO) 0.2 10^3/uL (0.0-0.3); EOSINOPHILS % (AUTO) 4 % (0-10); HEMATOCRIT 26 % (40-54); HEMOGLOBIN 8.5 G/DL (13.3-17.7); LYMPHOCYTES # (AUTO) 0.8 X 10^3 (1.0-4.0); LYMPHOCYTES % (AUTO) 20 % (12-44); MEAN CORPUSCULAR HEMOGLOBIN 32 PG (25-34); MEAN CORPUSCULAR HGB CONC 33 G/DL (32-36); MEAN CORPUSCULAR VOLUME 97 FL (80-99); MEAN PLATELET VOLUME 11.3 FL (7.4-10.4); MONOCYTES # (AUTO) 0.4 X 10^3 (0.0-1.0); MONOCYTES % (AUTO) 10 % (0-12); NEUTROPHILS # (AUTO) 2.7 X 10^3 (1.8-7.8); NEUTROPHILS % (AUTO) 66 % (42-75); PLATELET COUNT 82 10^3/uL (130-400); RED BLOOD COUNT 2.69 10^6/uL (4.35-5.85); WHITE BLOOD COUNT 4.1 10^3/uL (4.3-11.0)
[2017-05-24 19:02] LABS: INR 1.4 (0.8-1.4); PROTHROMBIN TIME PATIENT 17.5 SEC (12.2-14.7)
--- NOTE | 2017-05-24 19:21 | Diagnostic Imaging Report ---
INDICATION: Fall with bruising to the right arm. TIME OF EXAM: 7:32 PM FINDINGS: Two views of the right forearm were obtained. Alignment at the elbow and wrist is normal. The radius and ulna are intact. No fractures are seen. Radiocarpal joint degenerative change is seen. IMPRESSION: No acute bony abnormality is detected. Dictated by: Dictated on workstation # [id number]
--- NOTE | 2017-05-24 19:21 | Diagnostic Imaging Report ---
INDICATION: Fall with bruising to the right arm. TIME OF EXAM: 7:24 p.m. FINDINGS: Two views of the right humerus demonstrate normal alignment of the shoulder and elbow. The humerus is intact. No fractures are seen. Glenohumeral joint degenerative change is noted with joint space narrowing. There is spurring at the humeral head neck junction. IMPRESSION: Degenerative changes. No acute bony abnormality is detected. Dictated by: Dictated on workstation # [id number]
--- NOTE | 2017-05-24 19:29 | Diagnostic Imaging Report ---
PROCEDURE: CT chest and abdomen without contrast. TECHNIQUE: Axial images were obtained from the thoracic inlet through the iliac crest without the administration of intravenous contrast. INDICATION: Fall with bruising to the right upper chest. FINDINGS: CT chest: Evaluation of the mediastinum and great vessels is limited without intravenous contrast. No definite mediastinal hematoma is seen. No pericardial fluid is seen. There is a trace right pleural effusion. Coronary arteries are markedly calcified. No pneumothorax or parenchymal contusion is seen. Tiny nonspecific nodules within the right lower lobe are noted, images 42 and 43, largest 9 mm. The sternum is intact. The ribs appear to be intact. No thoracic spine fracture is seen. CT abdomen: No focal liver laceration is identified. There are small stones within the gallbladder. The pancreas and spleen are unremarkable. No adrenal mass is seen. The kidneys are unremarkable. The aorta is aneurysmal and contains an aortic stent graft. The aneurysm sac dimensions are 5.4 cm AP x 6.0 cm transverse. No periaortic fluid collection is seen to suggest leakage or rupture. The bowel loops are normal in caliber. There is no ascites. Bony structures are nonacute. IMPRESSION: 1. Small right pleural effusion. 2. No mediastinal hematoma, pulmonary contusion, or pneumothorax is identified. No acute bony abnormality is detected. 3. No evidence of abdominal visceral injury. 4. Cholelithiasis. 5. Infrarenal abdominal aortic aneurysm, treated with a stent graft. Dictated by: Dictated on workstation # [id number]
[2017-05-24] MEDS ORDERED: RX-TRAMADOL 50 MG (ULTRAM) TAB PPK#4 PO STA (19:48)
[2017-05-24] MEDS ORDERED: TRAM-42 PO (19:49)
[2017-05-24 20:00] VITALS: BP 134/59
[2017-05-24 20:01] LABS: CALCIUM 8.5 MG/DL (8.5-10.1); CREATININE SERUM 2.78 MG/DL (0.60-1.30); POTASSIUM 4.5 MMOL/L (3.6-5.0)
== END 2017-05-24 20:06 | disposition home or self-care (01) ==
LOC: EDUNIT# 16:51 → ER 16:52
DX: S40.011A Contusion of right shoulder, initial encounter (principal); I25.10 Atherosclerotic heart disease of native coronary artery without angina pectoris; E78.00 Pure hypercholesterolemia, unspecified; F32.9 Major depressive disorder, single episode, unspecified; I10 Essential (primary) hypertension; F03.90 Unspecified dementia, unspecified severity, without behavioral disturbance, psychotic disturbance, mood disturbance, and anxiety; Z87.438 Personal history of other diseases of male genital organs; Z95.5 Presence of coronary angioplasty implant and graft; Z95.2 Presence of prosthetic heart valve; Z79.82 Long term (current) use of aspirin; Z86.79 Personal history of other diseases of the circulatory system; Z88.8 Allergy status to other drugs, medicaments and biological substances; Z91.041 Radiographic dye allergy status; X58.XXXA Exposure to other specified factors, initial encounter; Y92.009 Unspecified place in unspecified non-institutional (private) residence as the place of occurrence of the external cause
CPT/HCPCS: 36415; 71250; 73060; 73090; 74150; 80048; 85025; 85610

== ENCOUNTER → 2017-12-12 | Outpatient (CLI) | payer MEDICARE ==
[~2017-12-12] MED LIST changes: -AMLO5TAB2 PO; +AMLO5TAB7 PO; +TRAM-42 PO
== END ==
LOC: CARD 10:03
PROVIDERS: ATTEND Internal Medicine Cardiovascular Disease
DX: I25.10 Atherosclerotic heart disease of native coronary artery without angina pectoris (principal); I10 Essential (primary) hypertension; E78.2 Mixed hyperlipidemia; I08.0 Rheumatic disorders of both mitral and aortic valves
CPT/HCPCS: 93306